=== PATIENT | female | born 1935 | race Caucasian/White ===

== ENCOUNTER 2016-02-25 07:56 | Day surgery (SDC) | payer MEDICARE, OTHER ==
[~2016-02-25] VITALS: Ht 167.6 cm; Wt 77.3 kg
[~2016-02-25 07:56] MED LIST: /ESOM40CA; COLA100C2; DETR2CAP; DIOV160T5; HYDROCODONE; LEVA500T; LORA2TAB; LORAPOW30; MAGNESIUM; MAGNESIUM COMPLEX; MANGANESE; METO10TA2; MULTIVI; NEXI20CA; TYLENOL #3; VICODINES TAB; VIT B; VITA200C; [UNRECOGNIZED DRUG - OTHER]; [UNRECOGNIZED DRUG - OTHER]; [UNRECOGNIZED DRUG - OTHER]; [UNRECOGNIZED DRUG - OTHER]; [UNRECOGNIZED DRUG - OTHER]; acidophilus; evening primrose oil; manganese
[2016-02-25] MEDS ORDERED: ONDANSETRON 4MG/2ML VIAL (J2405) As Ordered ONE (08:47)
[2016-02-25] MEDS ORDERED: MORPHINE 2 MG/ML 1ML SYRINGE As Ordered ONE (08:47)
[2016-02-25] MEDS ORDERED: KETOROLAC 30 MG/ML VIAL (J1885) As Ordered ONE (08:47)
[2016-02-25 08:57] LABS: BASO % 0.1 % (0.0-1.0); EOS # 0.1 K/mm3 (0.0-0.50); EOS % 1.3 % (0.0-3.0); LARGE UNSTAINED CELL # 0.1 K/mm3 (0.0-0.4); LARGE UNSTAINED CELL % 1.2 % (0.0-4.0); LYMPH # 0.8 K/mm3 (1.5-4.5); MEAN CORPUSCULAR HEMOGLOBIN 29.3 pg (27.0-33.0); MEAN CORPUSCULAR HGB CONC 34.8 g/dl (32.0-36.5); MEAN CORPUSCULAR VOLUME 84.3 fl (80.0-96.0); MONO # 0.4 K/mm3 (0.0-0.8); MONO % 5.8 % (0.0-5.0); NEUTROPHILS % 78.6 % (36.0-66.0); PLATELET COUNT, AUTOMATED 177 k/mm3 (150-450); RED CELL DISTRIBUTION WIDTH 13.1 % (11.5-14.5); WHITE BLOOD COUNT 6.3 K/mm3 (4.0-10.0)
[2016-02-25 09:16] LABS: ALBUMIN 3.4 GM/DL (3.2-5.2); ALBUMIN/GLOBULIN RATIO 1.17 (1.00-1.93); ALKALINE PHOSPHATASE 38 U/L (45-117); ALT/SGPT 17 U/L (12-78); AMYLASE 45 U/L (25-115); ANION GAP 11 MEQ/L (8-16); AST/SGOT 19 U/L (15-37); BILIRUBIN,DIRECT 0.2 MG/DL (0.0-0.2); BILIRUBIN,TOTAL 0.7 MG/DL (0.2-1.0); BLOOD UREA NITROGEN 18 MG/DL (7-18); CALCIUM LEVEL 8.9 MG/DL (8.8-10.2); CARBON DIOXIDE LEVEL 23 MEQ/L (21-32); CHLORIDE LEVEL 109 MEQ/L (98-107); CREATININE FOR GFR 0.94 MG/DL (0.55-1.02); GLOMERULAR FILTRATION RATE > 60.0 (>39); GLUCOSE, FASTING 96 MG/DL (83-110); POTASSIUM SERUM 3.2 MEQ/L (3.5-5.1); SODIUM LEVEL 143 MEQ/L (136-145); TOTAL PROTEIN 6.3 GM/DL (6.4-8.2)
--- NOTE | 2016-02-25 09:35 | REP ---
Clinical: Left flank pain. Comparison: 01/20/2011. Findings: Moderate to marked left obstructive uropathy including grade 4 hydronephrosis and perinephric stranding is secondary to a 14 x 21 mm calculus obstructing the ureteropelvic junction. Nonobstructing lower pole left calculi measure up to approximately 9 mm. The right kidney and ureter appear normal and the bladder is unremarkable. Liver, spleen, pancreas, and bilateral adrenal glands are normal for noncontrast examination. The patient is status post cholecystectomy. Evaluation of the enteric system demonstrates a [id number] hiatal hernia. There is no evidence for bowel obstruction or acute inflammatory process. Pelvis demonstrates prior hysterectomy. No pelvic fluid or ascites. No obvious adenopathy. Atherosclerotic changes of the aorta noted without aneurysm. Musculoskeletal structures demonstrate degenerative changes including posterior lumbar fixation and laminectomy. Lung bases demonstrate chronic changes. Impression: 1. Moderate to marked acute left obstructive uropathy with 21 mm calculus at the ureteropelvic junction and multiple nonobstructing left renal calculi measuring up to 9 mm. 2. Moderate hiatal hernia. Signed by Sameer Fountain MD 02/25/2016 09:27 A
[2016-02-25] MEDS ORDERED: cefTRIAXone SOD 1 GM VIAL (J0696) As Ordered ONE (10:42)
[2016-02-25] MEDS ORDERED: IBUPOTC PO (11:05)
[2016-02-25] MEDS ORDERED: OMEP40CA2 PO (11:05)
[2016-02-25] MEDS ORDERED: SERT-138 PO (11:05)
[2016-02-25] MEDS ORDERED: OXYB10TA PO (11:05)
[2016-02-25] MEDS ORDERED: CHLO25TA PO (11:05)
[2016-02-25] MEDS ORDERED: VITMTA PO (11:05)
[2016-02-25] MEDS ORDERED: CALC600T10 PO (11:05)
[2016-02-25] MEDS ORDERED: LOSA25TA8 PO (11:05)
[2016-02-25] MEDS ORDERED: MIRA3350 PO (11:05)
[2016-02-25] MEDS ORDERED: D 50CAP PO (11:05)
[2016-02-25] MEDS ORDERED: SIMV20TA2 PO (11:05)
[2016-02-25] MEDS ORDERED: NS 1,000 ML IV SCH (11:13)
[2016-02-25] MEDS ORDERED: PERCOCET 5MG/325MG TAB PO PRN ×3 (11:15→18:00)
[2016-02-25] MEDS ORDERED: ONDANSETRON 4MG/2ML VIAL (J2405) IV PRN ×2 (11:15→18:00)
[2016-02-25] MEDS ORDERED: ACETAMINOPHEN TAB 650MG DOSE (2X325MG) PO PRN (11:15)
[2016-02-25] MEDS ORDERED: MORPHINE 2 MG/ML 1ML SYRINGE IV PRN (11:15)
[2016-02-25 12:35] VITALS: BP 153/70
--- NOTE | 2016-02-25 12:43 | REP ---
Clinical: Preoperative assessment . Comparison: 02/21/2015 . Technique: PA and lateral. Findings: The mediastinum and cardiac silhouette are normal. The lung cobos are clear and without acute consolidation, effusion, or pneumothorax. The skeletal structures are intact and normal. Old healed left clavicle fracture. Impression: 1. No acute cardiopulmonary process. Signed by Sameer Fountain MD 02/25/2016 12:36 P
[2016-02-25 14:00] VITALS: BP 156/72
[2016-02-25] MEDS ORDERED: ACETAMINOPHEN TAB 650MG DOSE (2X325MG) As Ordered ONE (14:19)
--- NOTE | 2016-02-25 15:03 | EDDOCDS ---
Physician Documentation [facility] Name: Clarissa Witt Age: 80 yrs Sex: Female : 1935 Arrival Date: 02/25/2016 Time: 07:56 Bed 18 Private MD: Richard Mclain P. Disposition: 02/25/16 10:42 Hospitalization ordered by Casimiro Stubbs for Inpatient Admission. Preliminary diagnosis are Unspecified renal colic - with moderate hydronephrosis, Cystitis, unspecified with hematuria. - Bed requested for 4 [place]. - Status is Inpatient Admission. ead - Condition is Stable. - Problem is new. - Symptoms are unchanged. Historical: - Allergies: Latex; Streptomycin Sulfate; - Home Meds: 1. Sertraline 25 mg daily 2. omeprazole 40 mg Oral cpDR 1 cap once daily 3. oxybutynin chloride 10 mg Oral tr24 1 tab once daily 4. losartan 25 mg oral tab 1 tab once daily 5. simvastatin 20 mg Oral tab 1 tab once daily 6. Vitamin D3 5,000 unit oral tab daily 7. multivitamin Oral tab daily 8. calcium Unknown 9. Chlorthalidone Oral - PMHx: Colitis; High Cholesterol; Hypertension; Depression; Kidney stones; - PSHx: back surgery 08/2008; - Social history: Smoking status: Patient states was never smoker of tobacco. No barriers to communication noted, The patient speaks fluent Nepali, Speaks appropriately for age. - Family history: Not pertinent. - : The pt / caregiver states he / she is not on anticoagulants. Home medication list is obtained from the patient. - Exposure Risk Screening:: None identified. Vital Signs: 02/24 08:11 BP 176 / 92; Pulse 94; Resp 16; Temp 98.2(TE); Pulse Ox 97% on R/A; Weight 77.11 kg / mlb1 170 lbs (R); Height 5 ft. 11 in. (180.34 cm); Pain 8/10; 08:42 BP 159 / 76 (auto/); ead 08:43 Pulse Ox 98% ; ead 09:12 BP 156 / 76 (auto/); ead 09:12 Pulse 70; Resp 16; Pulse Ox 97% ; ead 09:20 Pain 2/10; ead 09:40 Pulse 70; Resp 16; Pulse Ox 95% ; ead 09:42 BP 170 / 75 (auto/); kc3 10:11 Pulse Ox 96% ; ead 10:12 BP 180 / 79 (auto/); kc3 10:35 Pulse 73; Resp 18; Pulse Ox 97% ; ead 10:42 BP 186 / 76 (auto/); kc3 11:10 Pulse Ox 97% ; ead 11:12 BP 162 / 74 (auto/); ead 11:12 Pulse Ox 97% ; ead 12:12 BP 151 / 66 (auto/); ead 12:12 Pulse Ox 95% ; ead 12:33 Pulse Ox 95% ; ead 12:34 BP 153 / 70 (auto/); ead 12:42 BP 151 / 65 (auto/); ead 12:47 Pulse 74; Resp 16; Pulse Ox 97% ; ead 14:37 BP 142 / 65; Pulse 73; Resp 18; Temp 98.7(O); Pulse Ox 95% on R/A; mcp 08:11 Body Mass Index 23.71 (77.11 kg, 180.34 cm) mlb1 MDM: 08:32 IV Saline Lock ordered. ml 08:32 NS 0.9% 1000 ml IV at 100 mL/hr continuous ordered. ml 08:32 Ondansetron 4 mg IVP once ordered. ml 08:32 morphine 2 mg IVP every 5 minutes; Document pain score/vitals after each dose (Hold if ml SBP < 90mmHg) x3 ordered. 08:32 ketorolac 30 mg IVP once ordered. ml 08:33 CBC with Diff Ordered. EDMS 08:33 MED Profile Ordered. EDMS 08:33 Liver Profile Ordered. EDMS 08:33 Lipase Ordered. EDMS 08:33 Amylase Ordered. EDMS 08:33 UA Ordered. EDMS 08:33 Urine Culture Ordered. EDMS 08:34 CT ABD & PELVIS: No Contrast Ordered. EDMS 08:51 Financial registration complete. pm4 08:58 [facility] Payment Agreement was scanned into Printi and attached to record. pm4 09:17 CBC with Diff Reviewed. ml 09:17 MED Profile Reviewed. ml 09:17 Liver Profile Reviewed. ml 09:17 Lipase Reviewed. ml 09:17 Amylase Reviewed. ml 09:18 Misc. Nursing Order ordered. ml 10:10 BED REQUEST+ADM ordered. EDMS 10:19 UA Reviewed. ml 10:19 CT ABD & PELVIS: No Contrast Reviewed. ml 10:20 cefTRIAXone 1 grams IVPB once over 30 mins; dilute in 50mL of NS or D5W ordered. ml 11:30 Admission / Observation Status ordered. EDMS 11:30 NPO DIET ordered. EDMS 11:39 ECG WITH READING ER PHYS+CARDIAG ordered. EDMS 11:39 Chest, 2 View (pa\E\lat) Ordered. EDMS 12:44 ED course: dr stubbs requested cxr 2 view (nad) and ecg for pre op. ecg 73 nsr lad ml ivcd nonspecific st t wave changes . mlg. Administered Medications: 08:56 Drug: Ondansetron 4 mg [ondansetron HCl 2 mg/mL intravenous solution (2 mL)] Route: ead IVP; Site: right antecubital; 09:20 Follow up: Response: Nausea is resolved; No Adverse Reaction ead 08:58 Drug: ketorolac 30 mg [ketorolac 30 mg/mL (1 mL) injection solution (1 mL)] Route: IVP; ead Site: right antecubital; 09:20 Follow up: Pain 2/10 Adult; Response: No Adverse Reaction; Pain is decreased ead 09:00 Drug: morphine 2 mg [morphine 2 mg/mL intravenous cartridge (1 mL)] Route: IVP; Site: ead right antecubital; 09:38 Follow up: Response: Confirmed pt not driving.; No Adverse Reaction; Pain is decreased ead 09:30 Drug: NS 0.9% 1000 ml [sodium chloride 0.9 % intravenous solution] Route: IV; Rate: 100 ead mL/hr; Site: right antecubital; 10:55 Drug: cefTRIAXone 1 grams [ceftriaxone 1 gram solution for injection] Route: IVPB; kc3 Infused Over: 30 mins; Site: right antecubital; 11:25 Follow up: Response: No Adverse Reaction; IV Status: Completed infusion; IV Intake: 50mlead Signatures: Dispatcher MedHost EDMS Mireya Briones MD MD ml Sulaiman England RN RN mlb1 Yessenia KasperRN RN ead Dede Miller RN RN sls2 Francisco Williamson, Reg Reg pm4 Alda Herrera RN kc3 The chart was reviewed and I authenticate all verbal orders and agree with the evaluation and treatment provided.Attachments: 08:58 [facility] Payment Agreement pm4 MTDD
--- NOTE | 2016-02-25 15:03 | EDDOCDS ---
Nurse's Notes [facility] Name: Clarissa Witt Age: 80 yrs Sex: Female : 1935 Arrival Date: 02/25/2016 Time: 07:56 Bed 18 Private MD: Richard Mclain P. Diagnosis: Unspecified renal colic-with moderate hydronephrosis;Cystitis, unspecified with hematuria Presentation: 02/24 08:01 Presenting complaint: Patient states: Left flank pain began on 02/19/16 worse since last mlb1 night no BM for the past three days. Acute neurological deficits are not present. Mechanism of Injury: No Mechanism of Injury. Adult Sepsis Screening: The patient does not have new or worsening altered mentation. Patient's respiratory rate is less than 22. Systolic blood pressure is greater than 100. Patient has a qSOFA score of 0- Negative Sepsis Screen. Suicide/Homicide risk assessment- the patient denies having any suicidal and/or homicidal ideations and does not present with any other emotional, behavioral or mental health complaints. Status: Patient is not a clinical services director or dependent. Transition of care: patient was not received from another setting of care. 08:01 Acuity: [place] Level 3 mlb1 08:01 Method Of Arrival: Walkin/Carried/Asstd mlb1 Triage Assessment: 08:10 General: Appears distressed, Behavior is anxious, appropriate for age. Pain: Location: mlb1 left flank Pain currently is 8 out of 10 on a pain scale. GI: Reports constipation, nausea. Musculoskeletal: No deficits noted. Historical: - Allergies: Latex; Streptomycin Sulfate; - Home Meds: 1. Sertraline 25 mg daily 2. omeprazole 40 mg Oral cpDR 1 cap once daily 3. oxybutynin chloride 10 mg Oral tr24 1 tab once daily 4. losartan 25 mg oral tab 1 tab once daily 5. simvastatin 20 mg Oral tab 1 tab once daily 6. Vitamin D3 5,000 unit oral tab daily 7. multivitamin Oral tab daily 8. calcium Unknown 9. Chlorthalidone Oral - PMHx: Colitis; High Cholesterol; Hypertension; Depression; Kidney stones; - PSHx: back surgery 08/2008; - Social history: Smoking status: Patient states was never smoker of tobacco. No barriers to communication noted, The patient speaks fluent Swiss, Speaks appropriately for age. - Family history: Not pertinent. - : The pt / caregiver states he / she is not on anticoagulants. Home medication list is obtained from the patient. - Exposure Risk Screening:: None identified. Screenin:13 Screening information is obtained from the patient. Fall risk: No risks identified. ead Assistance ADL's: requires no assistance with activities of daily living. Abuse/DV Screen: The patient / caregiver reports he/she is: not in a situation that causes fear, pain or injury. Nutritional screening: No deficits noted. Advance Directives: Currently, there is a health care proxy, Jolynn Witt (daughter in law). There is no active DNR order. There is no living will. There is an active Power of Injection Molding Machine Tender, Jolynn Witt (daughter in law). information regarding advance directives can be obtained from Jolynn Witt home: [phone]. cell: [phone]. home support is adequate. Assessment: 09:03 General: Appears in no apparent distress, uncomfortable, well nourished, well groomed, ead Behavior is appropriate for age, cooperative, pleasant. Pain: Location: left flank Pain currently is 10 out of 10 on a pain scale. Neurological: No deficits noted. GI: Abdomen is non- distended Reports lower abdominal pain, nausea. Derm: Skin is pink, warm & dry. Musculoskeletal: Reports pain in left flank. 09:38 Reassessment: Patient appears in no apparent distress at this time. Patient states ead feeling better. Patient states symptoms have improved. 10:55 General: Appears in no apparent distress, comfortable, Behavior is appropriate for age, kc3 cooperative. Neurological: Level of Consciousness is awake, alert, obeys commands, Oriented to person, place, time. Respiratory: Respiratory effort is even, unlabored. Derm: Skin is pink, warm & dry. 11:34 General: This nurse received call from Dr. Monk. Asked to verify pt's allergy to ead codeine. Pt states she is not allergic to codeine. Dr. Monk made aware. Dr. Monk also requesting two view chest x-ray and EKG done in ER prior to going to OR. Dr. Monk also states pt to go to OR at approx 1600 for stent placement for kidney stone. . 12:30 General: Appears in no apparent distress, comfortable. Pain: Location: left flank Pain ead currently is 1 out of 10 on a pain scale. Neurological: No deficits noted. Respiratory: Airway is patent Respiratory effort is even, unlabored. GI: Denies nausea, vomiting. Derm: Skin is pink, warm & dry. 13:30 General: Appears in no apparent distress, comfortable, Behavior is appropriate for age, ead cooperative. General: pt updated of bed status to rom 4201 and plan for stent placement with Dr. Monk later today. Pt's family maintains at bedside. pt denies needs. . Pain: Denies pain. Respiratory: Airway is patent Respiratory effort is even, unlabored. Derm: Skin is pink, warm & dry. Vital Signs: 08:11 BP 176 / 92; Pulse 94; Resp 16; Temp 98.2(TE); Pulse Ox 97% on R/A; Weight 77.11 kg mlb1 (R); Height 5 ft. 11 in. (180.34 cm); Pain 8/10; 08:42 BP 159 / 76 (auto/); ead 08:43 Pulse Ox 98% ; ead 09:12 BP 156 / 76 (auto/); ead 09:12 Pulse 70; Resp 16; Pulse Ox 97% ; ead 09:20 Pain 2/10; ead 09:40 Pulse 70; Resp 16; Pulse Ox 95% ; ead 09:42 BP 170 / 75 (auto/); kc3 10:11 Pulse Ox 96% ; ead 10:12 BP 180 / 79 (auto/); kc3 10:35 Pulse 73; Resp 18; Pulse Ox 97% ; ead 10:42 BP 186 / 76 (auto/); kc3 11:10 Pulse Ox 97% ; ead 11:12 BP 162 / 74 (auto/); ead 11:12 Pulse Ox 97% ; ead 12:12 BP 151 / 66 (auto/); ead 12:12 Pulse Ox 95% ; ead 12:33 Pulse Ox 95% ; ead 12:34 BP 153 / 70 (auto/); ead 12:42 BP 151 / 65 (auto/); ead 12:47 Pulse 74; Resp 16; Pulse Ox 97% ; ead 14:37 BP 142 / 65; Pulse 73; Resp 18; Temp 98.7(O); Pulse Ox 95% on R/A; mcp 08:11 Body Mass Index 23.71 (77.11 kg, 180.34 cm) mlb1 Vitals: 08:11 Log In Time: February 25, 2016 at 07:56. mlb1 ED Course: 07:58 Patient visited by Alex Arciniega. mm15 07:58 Richard Mclain is Private Physician. mm15 07:58 Patient moved to Waiting mm15 08:01 Patient visited by Sulaiman England, RN. mlb1 08:04 Triage Initiated mlb1 08:12 Patient visited by Sulaiman England, RN. mlb1 08:15 Yessenia Kasper,RN is Primary Nurse. mlb1 08:15 Patient moved to 18 mlb1 08:23 Mireya Briones MD is Attending Physician. ml 08:23 Patient visited by Mireya Briones MD. ml 08:30 Patient has correct armband on for positive identification. Placed in gown. Bed in low ead position. Call light in reach. Side rails up X 1. Adult w/ patient. Pulse ox on. NIBP on. 08:44 Patient visited by Yessenia Kasper RN. ead 08:45 Lipase Sent. ead 08:45 Amylase Sent. ead 08:45 Liver Profile Sent. ead 08:45 MED Profile Sent. ead 08:45 CBC with Diff Sent. ead 08:45 Inserted peripheral IV: 20gauge IV in right antecubital area and blood collected. ead Patient tolerated the procedure well. 08:58 [facility] Payment Agreement was scanned into LABOMAR and attached to record. pm4 09:39 Patient visited by Yessenia Kasper RN. ead 09:40 CT ABD & PELVIS: No Contrast Returned. EDMS 10:03 Patient visited by Yessenia Kasper RN. ead 10:03 UA Sent. ead 10:03 Urine Culture Sent. ead 10:35 Patient visited by Enrike Koroma PCA. jlf 10:42 Casimiro Jiang is Hospitalizing Provider. ml 10:57 Patient visited by Alda Herrera RN. kc3 12:42 Patient visited by Enrike Koroma PCA. jlf 12:42 EKG done. (by ED staff). Reviewed by Mireya Briones MD. jlf 13:13 The patient / caregiver is instructed regarding the plan of care and ED course. ead 13:16 No procedures done that require assistance. ead Administered Medications: 08:56 Drug: Ondansetron 4 mg [ondansetron HCl 2 mg/mL intravenous solution (2 mL)] Route: ead IVP; Site: right antecubital; 09:20 Follow up: Response: Nausea is resolved; No Adverse Reaction ead 08:58 Drug: ketorolac 30 mg [ketorolac 30 mg/mL (1 mL) injection solution (1 mL)] Route: IVP; ead Site: right antecubital; 09:20 Follow up: Pain 2/10 Adult; Response: No Adverse Reaction; Pain is decreased ead 09:00 Drug: morphine 2 mg [morphine 2 mg/mL intravenous cartridge (1 mL)] Route: IVP; Site: ead right antecubital; 09:38 Follow up: Response: Confirmed pt not driving.; No Adverse Reaction; Pain is decreased ead 09:30 Drug: NS 0.9% 1000 ml [sodium chloride 0.9 % intravenous solution] Route: IV; Rate: 100 ead mL/hr; Site: right antecubital; 10:55 Drug: cefTRIAXone 1 grams [ceftriaxone 1 gram solution for injection] Route: IVPB; kc3 Infused Over: 30 mins; Site: right antecubital; 11:25 Follow up: Response: No Adverse Reaction; IV Status: Completed infusion; IV Intake: 50mlead Intake: 11:25 IV: 50.00ml; Total: 50.00ml. ead Order Results: Lab Order: CBC with Diff; SPEC'M 02/25/16 08:42 Test: WHITE BLOOD COUNT; Value: 6.3; Range: 4.0-10.0; Units: K/mm3; Status: F Test: RED BLOOD COUNT; Value: 4.11; Range: 4.00-5.40; Units: M/mm3; Status: F Test: HEMOGLOBIN; Value: 12.1; Range: 12.0-16.0; Units: g/dl; Status: F Test: HEMATOCRIT; Value: 34.6; Range: 36.0-47.0; Abnormal: Below low normal; Units: %; Status: F Test: MEAN CORPUSCULAR VOLUME; Value: 84.3; Range: 80.0-96.0; Units: fl; Status: F Test: MEAN CORPUSCULAR HEMOGLOBIN; Value: 29.3; Range: 27.0-33.0; Units: pg; Status: F Test: MEAN CORPUSCULAR HGB CONC; Value: 34.8; Range: 32.0-36.5; Units: g/dl; Status: F Test: RED CELL DISTRIBUTION WIDTH; Value: 13.1; Range: 11.5-14.5; Units: %; Status: F Test: PLATELET COUNT, AUTOMATED; Value: 177; Range: 150-450; Units: k/mm3; Status: F Test: NEUTROPHILS %; Value: 78.6; Range: 36.0-66.0; Abnormal: Above high normal; Units: %; Status: F Test: LYMPH %; Value: 13.0; Range: 24.0-44.0; Abnormal: Below low normal; Units: %; Status: F Test: MONO %; Value: 5.8; Range: 0.0-5.0; Abnormal: Above high normal; Units: %; Status: F Test: EOS %; Value: 1.3; Range: 0.0-3.0; Units: %; Status: F Test: BASO %; Value: 0.1; Range: 0.0-1.0; Units: %; Status: F Test: LARGE UNSTAINED CELL %; Value: 1.2; Range: 0.0-4.0; Units: %; Status: F Test: NEUTROPHILS #; Value: 5.0; Range: 1.8-7.7; Units: K/mm3; Status: F Test: LYMPH #; Value: 0.8; Range: 1.5-4.5; Abnormal: Below low normal; Units: K/mm3; Status: F Test: MONO #; Value: 0.4; Range: 0.0-0.8; Units: K/mm3; Status: F Test: EOS #; Value: 0.1; Range: 0.0-0.50; Units: K/mm3; Status: F Test: BASO #; Value: 0.0; Range: 0.0-0.2; Units: K/mm3; Status: F Test: LARGE UNSTAINED CELL #; Value: 0.1; Range: 0.0-0.4; Units: K/mm3; Status: F Lab Order: MED Profile; SPEC02/25/16 08:42 Test: GLUCOSE, FASTING; Value: 96; Range: 83-110; Units: MG/DL; Status: F Test: BLOOD UREA NITROGEN; Value: 18; Range: 7-18; Units: MG/DL; Status: F Test: CREATININE FOR GFR; Value: 0.94; Range: 0.55-1.02; Units: MG/DL; Status: F Test: GLOMERULAR FILTRATION RATE; Value: > 60.0; Range: >39; Status: F Test: SODIUM LEVEL; Value: 143; Range: 136-145; Units: MEQ/L; Status: F Test: POTASSIUM SERUM; Value: 3.2; Range: 3.5-5.1; Abnormal: Below low normal; Units: MEQ/L; Status: F Test: CHLORIDE LEVEL; Value: 109; Range: 98-107; Abnormal: Above high normal; Units: MEQ/L; Status: F Test: CARBON DIOXIDE LEVEL; Value: 23; Range: 21-32; Units: MEQ/L; Status: F Test: ANION GAP; Value: 11; Range: 8-16; Units: MEQ/L; Status: F Test: CALCIUM LEVEL; Value: 8.9; Range: 8.8-10.2; Units: MG/DL; Status: F Test Note: ; Units are mL/min/1.73 m2 Chronic Kidney Disease Staging per NKF: Stage I & II GFR >=60 Normal to Mildly Decreased Stage III GFR 30-59 Moderately Decreased Stage IV GFR 15-29 Severely Decreased Stage V GFR <15 Very Little GFR Left ESRD GFR <15 on GLUING MACHINE OPERATOR AUTOMATIC Lab Order: Liver Profile; SPEC'M 02/25/16 08:42 Test: AST/SGOT; Value: 19; Range: 15-37; Units: U/L; Status: F Test: ALT/SGPT; Value: 17; Range: 12-78; Units: U/L; Status: F Test: ALKALINE PHOSPHATASE; Value: 38; Range: 45-117; Abnormal: Below low normal; Units: U/L; Status: F Test: BILIRUBIN,TOTAL; Value: 0.7; Range: 0.2-1.0; Units: MG/DL; Status: F Test: BILIRUBIN,DIRECT; Value: 0.2; Range: 0.0-0.2; Units: MG/DL; Status: F Test: TOTAL PROTEIN; Value: 6.3; Range: 6.4-8.2; Abnormal: Below low normal; Units: GM/DL; Status: F Test: ALBUMIN; Value: 3.4; Range: 3.2-5.2; Units: GM/DL; Status: F Test: ALBUMIN/GLOBULIN RATIO; Value: 1.17; Range: 1.00-1.93; Status: F Lab Order: Lipase; [facility] 02/25/16 08:42 Test: LIPASE; Value: 212; Range: 73-393; Units: U/L; Status: F Lab Order: Amylase; [facility] 02/25/16 08:42 Test: AMYLASE; Value: 45; Range: 25-115; Units: U/L; Status: F Lab Order: UA; [facility] 02/25/16 10:01 Test: APPEARANCE, URINE; Value: CLEAR; Range: CLEAR; Status: F Test: COLOR, URINE; Value: STRAW; Range: YELLOW; Status: F Test: PH,URINE; Value: 7.0; Range: 5.0-9.0; Units: UNITS; Status: F Test: SPECIFIC GRAVITY URINE AUTO; Value: 1.005; Range: 1.002-1.035; Status: F Test: PROTEIN, URINE AUTO; Value: NEGATIVE; Range: NEGATIVE; Units: mg/dL; Status: F Test: GLUCOSE, URINE (UA) AUTO; Value: NEGATIVE; Range: NEGATIVE; Units: mg/dL; Status: F Test: KETONE, URINE AUTO; Value: TRACE; Range: NEGATIVE; Abnormal: Above high normal; Units: mg/dL; Status: F Test: UROBILINOGEN, URINE AUTO; Value: 0.2; Range: 0.0-2.0; Units: mg/dL; Status: F Test: BILIRUBIN, URINE AUTO; Value: NEGATIVE; Range: NEGATIVE; Status: F Test: NITRITE, URINE AUTO; Value: NEGATIVE; Range: NEGATIVE; Status: F Test: LEUKOCYTE ESTERASE, URINE AUTO; Value: 1+; Range: NEGATIVE; Abnormal: Above high normal; Status: F Test: BLOOD, URINE BLOOD; Value: 2+; Range: NEGATIVE; Abnormal: Above high normal; Status: F Test: WBC, URINE AUTO; Value: 35; Range: 0-3; Abnormal: Above high normal; Units: /HPF; Status: F Test: RBC, URINE AUTO; Value: 21; Range: 0-3; Abnormal: Above high normal; Units: /HPF; Status: F Test: BACTERIA, URINE AUTO; Value: NEGATIVE; Range: NEGATIVE; Status: F Test: SQUAMOUS EPITHELIAL CELL UR AU; Value: 0; Range: 0-6; Units: /HPF; Status: F Test: MUCUS, URINE; Value: SMALL; Range: NEGATIVE; Status: F Test: HYALINE CAST, URINE AUTO; Value: 0; Range: 0-1; Units: /LPF; Status: F Radiology Order: CT ABD & PELVIS: No Contrast Test: CT ABD & PELVIS: No Contrast REASON FOR EXAMINATION: LEFT FLANK PAIN, HX STONE AND COLITIS; Clinical: Left flank pain.; ; Comparison: 01/20/2011.; ; Findings:; Moderate to marked left obstructive uropathy including grade 4 hydronephrosis and; perinephric stranding is secondary to a 14 x 21 mm calculus obstructing the; ureteropelvic junction. Nonobstructing lower pole left calculi measure up to; approximately 9 mm. The right kidney and ureter appear normal and the bladder is; unremarkable.; ; Liver, spleen, pancreas, and bilateral adrenal glands are normal for noncontrast; examination. The patient is status post cholecystectomy. Evaluation of the; enteric system demonstrates a aakbthlw-nq-jkljz hiatal hernia. There is no; evidence for bowel obstruction or acute inflammatory process. Pelvis; demonstrates prior hysterectomy. No pelvic fluid or ascites. No obvious; adenopathy. Atherosclerotic changes of the aorta noted without aneurysm.; Musculoskeletal structures demonstrate degenerative changes including posterior; lumbar fixation and laminectomy. Lung bases demonstrate chronic changes.; ; Impression:; 1. Moderate to marked acute left obstructive uropathy with 21 mm calculus at the; ureteropelvic junction and multiple nonobstructing left renal calculi measuring; up to 9 mm.; 2. Moderate hiatal hernia.; ; ; Signed by; Sameer Fountain MD 02/25/2016 09:27 A; Outcome: 10:42 Decision to Hospitalize by Provider. ml 13:16 Discharge Assessment: patient administered narcotics - yes. Patient was admitted to the [facility] hospital or transferred to another facility. CT Study completed. 15:02 The following High Risk Discharge criteria are identified: None. Admitted to Med/Surg ead accompanied by tech, family with patient, via stretcher, with chart. Condition: stable. Property :Personal belongings accompany Pt. 15:02 Patient left the ED. [facility] Signatures: Dispatcher Med[employer] EDTN Mireya Briones MD MD ml Peters, Mary, RN RN Sulaiman Thurston RN RN mlb1 Alex Arciniega mm15 Enrike Koroma, DIE REPAIRER STAMPING DIE REPAIRER STAMPING tammyf Yessenia KasperRN RN Alda Alberto RN RN kc3 Francisco Williamson, Reg Reg pm4 Corrections: (The following items were deleted from the chart) 11:36 11:34 General: This nurse received call from Dr. Monk. Asked to verify pt's ead allergy to codeine. Pt states she is not allergic to codeine. Dr. Monk made aware. Dr. Monk also requesting two view chest x-ray and EKG done in ER prior to going to OR. . ead MTDD
[2016-02-25] MEDS ORDERED: LIDOCAINE 2% INJ 100 MG/5 ML SDV (FOR ANES.) As Ordered ONE (16:04)
[2016-02-25] MEDS ORDERED: PROPOFOL 200 MG/20 ML VIAL As Ordered ONE (16:04)
[2016-02-25] MEDS ORDERED: CONRAY-60 60% 50ML VIAL (Q9961) As Ordered ONE (16:24)
[2016-02-25] MEDS ORDERED: MIDAZOLAM INJ 2 MG/2 ML VIAL (J2250) As Ordered ONE (16:46)
[2016-02-25] MEDS ORDERED: fentaNYL 100 MCG/2 ML INJECTION (J3010) As Ordered ONE (16:46)
--- NOTE | 2016-02-25 16:49 | SMCUROLCON ---
Urology Consultation General Date of Consultation 02/25/16 Reason For Consultation Kidney Stone On Left Side History of Present Illness This is a 80 y/o F w/ a PMH significant for rheumatoid arthritis and kidney stones, who presented to the ED today w/ severe left flank pain. A CT A/P w/o contrast was done and notable for an obstructing 2cm left renal pelvic stone. Her UA had 35 WBCs. She denies dysuria or fevers. She denies nausea or vomiting. She had kidney stone surgery several years ago but does not recall what she had. Past Medical History Medical History see HPI Surgical Hstory hysterectomy, lumpectomy Medications Current Medications Current Medications Acetaminophen (Tylenol) 650 mg Q4HP PRN PO MILD PAIN or TEMP > 101 Last administered on 02/25/16t 14:24; Start 02/25/16 at 11:15; Stop 03/26/16 at 11:14 Acetaminophen (Tylenol) 650 mg STK-MED ONCE As Ordered ; Start 02/25/16 at 14:19 ; Stop 02/25/16 at 14:20; Status DC Ceftriaxone Sodium (Rocephin) 1 gm STK-MED ONCE As Ordered ; Start 02/25/16 at 10:42; Stop 02/25/16 at 10:43; Status DC Home Med ASDIRECTED XX ; Start 02/25/16 at 11:15; Stop 02/25/16 at 11:15; Status DC Iothalamate Meglumine (Conray-60) 50 ml STK-MED ONCE As Ordered ; Start at 16:24; Stop 02/25/16 at 16:25; Status DC Ketorolac Tromethamine (ToRADol) 30 mg STK-MED ONCE As Ordered ; Start 02/25/16 at 08:47; Stop 02/25/16 at 08:48; Status DC Lidocaine HCl (Lidocaine 2% Sdv) 100 mg STK-MED ONCE As Ordered ; Start at 16:04; Stop 02/25/16 at 16:05; Status DC Morphine Sulfate (Morphine Sulfate Inj) 2 mg Q2HP PRN IV SEVERE PAIN (PS 8-10) ; Start 02/25/16 at 11:15; Stop 03/03/16 at 11:14 Morphine Sulfate (Morphine Sulfate Inj) 2 mg STK-MED ONCE As Ordered ; Start 12/31 at 08:47; Stop 02/25/16 at 08:48; Status DC Ondansetron HCl (Zofran) 4 mg Q6HP PRN IV NAUSEA OR VOMITING; Start 02/25/16 at 11:15; Stop 03/26/16 at 11:14 Ondansetron HCl (Zofran) 4 mg STK-MED ONCE As Ordered ; Start 02/25/16 at 08:47 ; Stop 02/25/16 at 08:48; Status DC Oxycodone/ Acetaminophen (Percocet 5mg/ 325mg Tablet) 1 tab Q4HP PRN PO MODERATE PAIN (PS 5-7); Start 02/25/16 at 11:15; Stop 03/03/16 at 11:14 Propofol (Diprivan) 200 mg STK-MED ONCE As Ordered ; Start 02/25/16 at 16:04; Stop 02/25/16 at 16:05; Status DC Sodium Chloride (Nacl 0.9%) 1,000 ml @ 50 mls/hr Q20H IV ; Start 02/25/16 at 11 :13; Stop 03/26/16 at 11:12 Allergies Allergies: Coded Allergies: Acetylcysteine (Verified Allergy, Intermediate, RASH (? WETHER THIS WAS THE REASON FOR THE RASH), 05/22/12) Codeine (Verified Allergy, Intermediate, ITCHY, 05/22/12) Kiwi (Verified Allergy, Unknown, 11/08/02) Latex (Unverified Allergy, Unknown, 02/25/16) TAPE (Verified Allergy, Unknown, 10/02/03) Streptomycin (Verified Adverse Reaction, Intermediate, NUMBNESS, 05/22/12) Review of Systems General: Denies: Chills Constitutional: Denies: Fever Pulmonary: Denies: Cough, Dyspnea Cardiovascular: Denies Chest Pain Gastrointestinal: Denies: Abdominal Pain Genitourinary: Reports: Incontinence, Denies: Dysuria Musculoskeletal: Reports: Back Pain Psych: Reports: Mood Normal Physical Examination General Exam: : Alert: Cooperative Chest Exam: : Clear to auscultation Heart Exam: : Rate Normal: Regular Rhythm Abdomen Exam: : SoftNo: Tenderness Neuro Exam: : Normal Speech Psych Exam: : Mental status NL: Mood NL Vital Signs/I&O Vital Signs Date Time Temp Pulse Resp B/P Pulse Ox O2 Delivery O2 Flow Rate FiO2 02/25/16 14:00 96.0 73 16 156/72 97 Room Air Laboratory Data 24H Labs Laboratory Tests 2 02/25/16 08:42: Aspartate Amino Transf (AST/SGOT) 19, Alanine Aminotransferase (ALT/SGPT) 17, Alkaline Phosphatase 38L, Total Bilirubin 0.7, Direct Bilirubin 0.2, Albumin 3.4 , Albumin/Globulin Ratio 1.17, Amylase Level 45, Anion Gap 11, White Blood Count 6.3, Red Blood Count 4.11, Hemoglobin 12.1, Hematocrit 34.6L, Mean Corpuscular Volume 84.3, Mean Corpuscular Hemoglobin 29.3, Mean Corpuscular Hemoglobin Concent 34.8, Red Cell Distribution Width 13.1, Platelet Count 177, Neutrophils (%) (Auto) 78.6H, Lymphocytes (%) (Auto) 13.0L, Monocytes (%) (Auto ) 5.8H, Eosinophils (%) (Auto) 1.3, Basophils (%) (Auto) 0.1, Neutrophils # ( Auto) 5.0, Lymphocytes # (Auto) 0.8L, Monocytes # (Auto) 0.4, Eosinophils # ( Auto) 0.1, Basophils # (Auto) 0.0, Calcium Level 8.9, Glomerular Filtration Rate > 60.0, Large Unclassified Cells # 0.1, Large Unclassified Cells % 1.2, Lipase 212, Total Protein 6.3L 02/25/16 10:01: Urine Amorphous Sediment , Urine Appearance CLEAR, Urine Color STRAW, Urine pH 7.0, Urine Specific [place] 1.005, Urine Protein NEGATIVE, Urine Glucose (UA) NEGATIVE, Urine Ketones TRACEH, Urine Urobilinogen 0.2, Urine Bilirubin NEGATIVE , Urine Leukocyte Esterase 1+H, Urine Bacteria (Auto) NEGATIVE, Urine Blood 2+H , Urine Calcium Carbonate Cryst(Auto) , Urine Calcium Oxalate Cryst (Auto) , Urine Calcium Phosphate [place] (Auto) , Urine Cellular Casts , Urine Cystine Crystals , Urine Granular Casts (Auto) , Urine Hyaline Casts (Auto) 0, Urine Leucine Crystals , Urine Mucus (Auto) SMALL, Urine Nitrite NEGATIVE, Urine Oval Fat Bodies (Auto) , Urine RBC (Auto) 21H, Urine Renal Epithelial Cells , Urine Sperm (Auto) , Urine Squamous Epithelial Cells 0, Urine Transitional Epithelial Cells , Urine Trichomonas (Auto) , Urine Triple Phosphate Cryst (Auto) , Urine Tyrosine Crystals , Urine Uric Acid Crystals (Auto) , Urine WBC (Auto) 35H, Urine Waxy Casts (Auto) , Urine Yeast-Like Cells (Auto) CBC/BMP Laboratory Tests 02/25/16 08:42 Red Blood Count 4.11, Mean Corpuscular Volume 84.3, Mean Corpuscular Hemoglobin 29.3, Mean Corpuscular Hemoglobin Concent 34.8, Red Cell Distribution Width 13.1 , Neutrophils (%) (Auto) 78.6 H, Lymphocytes (%) (Auto) 13.0 L, Monocytes (%) ( Auto) 5.8 H, Eosinophils (%) (Auto) 1.3, Basophils (%) (Auto) 0.1, Neutrophils # (Auto) 5.0, Lymphocytes # (Auto) 0.8 L, Monocytes # (Auto) 0.4, Eosinophils # (Auto) 0.1, Basophils # (Auto) 0.0 Microbiology Microbiology 02/25/16 Urine Culture, Received Pending Assessment This is a 80 y/o F w/ a 2cm obstructing left ureteropelvic junction stone and a possible UTI. I recommended cystoscopy w/ left ureteral stent placement. After a discussion of the risks and benefits of the surgery informed consent was signed. Plan - OR for cystoscopy w/ left ureteral stent placement - will keep patient on PO antibiotics until urine culture is back - NPO for now - ok for discharge home after surgery if patient's pain is improved and she is afebrile SHALONDA MILLAN MD Feb 25, 2016 16:49
[2016-02-25] MEDS ORDERED: fentaNYL 100 MCG/2 ML INJECTION (J3010) IV PRN (18:00)
[2016-02-25] MEDS ORDERED: LR 1,000 ML IV SCH (18:00)
--- NOTE | 2016-02-25 18:11 | ECGEPIP ---
Stationary ECG Study [facility] - ED Test Date: 2016-02-25 Pat Name: MIGUELINA LANGSTON Department: Room: - Gender: F Manager Corporate: [employer] : 1935 Requested By: Mireya Briones Order Number: [id number] Reading MD: Linda Brock Measurements Intervals [place] Rate: 73 P: 38 SD: 157 QRS: -19 QRSD: 104 T: 52 QT: 426 QTc: 471 Interpretive Statements SINUS RHYTHM NSTTW ABNORMALITY ?PRIOR INFERIOR TN SIMILAR 05/08/13 Electronically Signed On 02-25-2016 18:11:00 EST by Linda Brock
[2016-02-25 18:30] VITALS: BP 177/87
[2016-02-25] MEDS ORDERED: OXYC1TAB23 PO (18:52)
[2016-02-25] MEDS ORDERED: TYLE325T5 PO (18:52)
[2016-02-25 19:00] VITALS: BP 144/85
--- NOTE | 2016-02-25 19:33 | REP ---
Retrograde pyelogram: 02/25/2016: Clinical history: Renal stone disease. Findings: two images from C-arm fluoroscopy provided to Dr. Jiang of the urology division for a left fluoroscopic guided ureteral stent placement. The two view show some contrast in the collecting system of the left kidney with a pigtail stent coiled adjacent and the second image showing the distal end of that same pigtail coiled in the bladder. Stones could certainly be obscured. Contrast may obscure some stones with overlapping stool and gas combined. I suspect filling defects with the large renal stone on CT present. Fluoroscopy time: 34 seconds. Signed by Mckinley Kraus MD 02/25/2016 08:06 P
--- NOTE | 2016-02-26 07:13 | RO ---
DATE OF PROCEDURE: 02/25/2016 PREPROCEDURE DIAGNOSIS: Obstructing left ureteropelvic junction stone. POSTPROCEDURE DIAGNOSIS: Obstructing left ureteropelvic junction stone. PROCEDURE: Cystoscopy, left retrograde pyelogram with intraoperative interpretation of images, left ureteral stent placement. SURGEON: Dr. Casimiro Jiang SPECIALTY THERAPIST: None. ANESTHESIA: Monitored anesthesia care (MAC). OPERATIVE INDICATIONS: This is a 80-year-old female who presented to the emergency room today with severe left flank pain. A CAT scan of the abdomen and pelvis was obtained and notable for an obstructing 2 cm left ureteropelvic junction stone. Her urinalysis was also notable for 35 white blood cells raising concern for possible infection. Her pain was not well controlled. It was recommended she be brought to the operating room today for the above listed procedure. DESCRIPTION OF PROCEDURE: The patient was brought to the operating room and MAC anesthesia was administered. Prophylactic antibiotics were infused earlier in the day. She was then placed in dorsal lithotomy position and prepped and draped in the usual sterile fashion. A rigid cystoscope was then inserted into the urethral meatus and advanced into the bladder. Once within the bladder, an open ended ureteral catheter was advanced up the left collecting system. A retrograde pyelogram was then performed and notable for severe left hydronephrosis with no extravasation. At this point, a wire was then advanced up the left collecting system. The open ended ureteral catheter was then removed and the wire was utilized to advance a 7 Nepali x 22-32 cm JJ ureteral stent up into the left collecting system. The wire was then removed and there were adequate curls of the stent in the left renal pelvis and in the bladder. The bladder was then emptied of all fluid and this marked the conclusion of the procedure. The patient was then taken out of the dorsal lithotomy position, awakened from anesthesia and transported to the recovery room in stable condition. ESTIMATED BLOOD LOSS: 0 mL. COMPLICATIONS: None. SPECIMEN: None. PLAN: The patient will be discharged home with pain medication as well as antibiotics for about 10 days. She also will need to be seen back in the office to be set up for a left percutaneous nephrolithotomy for management of the stone. DANNI
--- NOTE | 2016-02-27 16:03 | EDDOCDS ---
Physician Documentation [facility] Name: Clarissa Witt Age: 80 yrs Sex: Female : 1935 Arrival Date: 02/25/2016 Time: 07:56 Bed 18 Private MD: Richard Mclain P. Disposition: 02/25/16 10:42 Hospitalization ordered by Casimiro Stubbs for Inpatient Admission. Preliminary diagnosis are Unspecified renal colic - with moderate hydronephrosis, Cystitis, unspecified with hematuria. - Bed requested for 4 [place]. - Status is Inpatient Admission. ead - Condition is Stable. - Problem is new. - Symptoms are unchanged. Historical: - Allergies: Latex; Streptomycin Sulfate; - Home Meds: 1. Sertraline 25 mg daily 2. omeprazole 40 mg Oral cpDR 1 cap once daily 3. oxybutynin chloride 10 mg Oral tr24 1 tab once daily 4. losartan 25 mg oral tab 1 tab once daily 5. simvastatin 20 mg Oral tab 1 tab once daily 6. Vitamin D3 5,000 unit oral tab daily 7. multivitamin Oral tab daily 8. calcium Unknown 9. Chlorthalidone Oral - PMHx: Colitis; High Cholesterol; Hypertension; Depression; Kidney stones; - PSHx: back surgery 08/2008; - Social history: Smoking status: Patient states was never smoker of tobacco. No barriers to communication noted, The patient speaks fluent Spanish, Speaks appropriately for age. - Family history: Not pertinent. - : The pt / caregiver states he / she is not on anticoagulants. Home medication list is obtained from the patient. - Exposure Risk Screening:: None identified. Vital Signs: 02/24 08:11 BP 176 / 92; Pulse 94; Resp 16; Temp 98.2(TE); Pulse Ox 97% on R/A; Weight 77.11 kg / mlb1 170 lbs (R); Height 5 ft. 11 in. (180.34 cm); Pain 8/10; 08:42 BP 159 / 76 (auto/); ead 08:43 Pulse Ox 98% ; ead 09:12 BP 156 / 76 (auto/); ead 09:12 Pulse 70; Resp 16; Pulse Ox 97% ; ead 09:20 Pain 2/10; ead 09:40 Pulse 70; Resp 16; Pulse Ox 95% ; ead 09:42 BP 170 / 75 (auto/); kc3 10:11 Pulse Ox 96% ; ead 10:12 BP 180 / 79 (auto/); kc3 10:35 Pulse 73; Resp 18; Pulse Ox 97% ; ead 10:42 BP 186 / 76 (auto/); kc3 11:10 Pulse Ox 97% ; ead 11:12 BP 162 / 74 (auto/); ead 11:12 Pulse Ox 97% ; ead 12:12 BP 151 / 66 (auto/); ead 12:12 Pulse Ox 95% ; ead 12:33 Pulse Ox 95% ; ead 12:34 BP 153 / 70 (auto/); ead 12:42 BP 151 / 65 (auto/); ead 12:47 Pulse 74; Resp 16; Pulse Ox 97% ; ead 14:37 BP 142 / 65; Pulse 73; Resp 18; Temp 98.7(O); Pulse Ox 95% on R/A; mcp 08:11 Body Mass Index 23.71 (77.11 kg, 180.34 cm) mlb1 MDM: 08:32 IV Saline Lock ordered. ml 08:32 NS 0.9% 1000 ml IV at 100 mL/hr continuous ordered. ml 08:32 Ondansetron 4 mg IVP once ordered. ml 08:32 morphine 2 mg IVP every 5 minutes; Document pain score/vitals after each dose (Hold if ml SBP < 90mmHg) x3 ordered. 08:32 ketorolac 30 mg IVP once ordered. ml 08:33 CBC with Diff Ordered. EDMS 08:33 MED Profile Ordered. EDMS 08:33 Liver Profile Ordered. EDMS 08:33 Lipase Ordered. EDMS 08:33 Amylase Ordered. EDMS 08:33 UA Ordered. EDMS 08:33 Urine Culture Ordered. EDMS 08:34 CT ABD & PELVIS: No Contrast Ordered. EDMS 08:51 Financial registration complete. pm4 08:58 [facility] Payment Agreement was scanned into [id number] and attached to record. pm4 09:17 CBC with Diff Reviewed. ml 09:17 MED Profile Reviewed. ml 09:17 Liver Profile Reviewed. ml 09:17 Lipase Reviewed. ml 09:17 Amylase Reviewed. ml 09:18 Misc. Nursing Order ordered. ml 10:10 BED REQUEST+ADM ordered. EDMS 10:19 UA Reviewed. ml 10:19 CT ABD & PELVIS: No Contrast Reviewed. ml 10:20 cefTRIAXone 1 grams IVPB once over 30 mins; dilute in 50mL of NS or D5W ordered. ml 11:30 Admission / Observation Status ordered. EDMS 11:30 NPO DIET ordered. EDMS 11:39 ECG WITH READING ER PHYS+CARDIAG ordered. EDMS 11:39 Chest, 2 View (pa\E\lat) Ordered. EDMS 12:44 ED course: dr stubbs requested cxr 2 view (nad) and ecg for pre op. ecg 73 nsr lad ml ivcd nonspecific st t wave changes . mlg. 02/25 10:07 T-Sheet-- Draft Copy was scanned into [id number] and attached to record. gb 10:07 ECG/EKG was scanned into [id number] and attached to record. gb 10:08 Radiology Report was scanned into [employer] and attached to record. gb 11:58 T-Sheet-- Draft Copy was scanned into [id number] and attached to record. gb Administered Medications: 02/24 08:56 Drug: Ondansetron 4 mg [ondansetron HCl 2 mg/mL intravenous solution (2 mL)] Route: ead IVP; Site: right antecubital; 09:20 Follow up: Response: Nausea is resolved; No Adverse Reaction ead 08:58 Drug: ketorolac 30 mg [ketorolac 30 mg/mL (1 mL) injection solution (1 mL)] Route: IVP; ead Site: right antecubital; 09:20 Follow up: Pain 2/10 Adult; Response: No Adverse Reaction; Pain is decreased ead 09:00 Drug: morphine 2 mg [morphine 2 mg/mL intravenous cartridge (1 mL)] Route: IVP; Site: ead right antecubital; 09:38 Follow up: Response: Confirmed pt not driving.; No Adverse Reaction; Pain is decreased ead 09:30 Drug: NS 0.9% 1000 ml [sodium chloride 0.9 % intravenous solution] Route: IV; Rate: 100 ead mL/hr; Site: right antecubital; 10:55 Drug: cefTRIAXone 1 grams [ceftriaxone 1 gram solution for injection] Route: IVPB; kc3 Infused Over: 30 mins; Site: right antecubital; 11:25 Follow up: Response: No Adverse Reaction; IV Status: Completed infusion; IV Intake: 50mlead Signatures: Dispatcher [employer] EDMireya Dennis MD MD ml Marita Calderón, Reg Reg gb Sulaiman England RN RN mlb1 Yessenia KasperRN RN michelled Dede Miller RN RN sls2 Francisco Williamson, Reg Reg pm4 Alda Herrera RN kc3 The chart was reviewed and I authenticate all verbal orders and agree with the evaluation and treatment provided.Attachments: 08:58 [facility] Payment Agreement pm4 10:07 ECG/EKG gb 11:58 T-Sheet-- Draft Copy gb Chart Complete MTDD
--- NOTE | 2016-02-27 16:03 | EDDOCDS ---
Nurse's Notes [facility] Name: Clarissa Witt Age: 80 yrs Sex: Female : 1935 Arrival Date: 02/25/2016 Time: 07:56 Bed 18 Private MD: Richard Mclain P. Diagnosis: Unspecified renal colic-with moderate hydronephrosis;Cystitis, unspecified with hematuria Presentation: 02/24 08:01 Presenting complaint: Patient states: Left flank pain began on 02/19/16 worse since last mlb1 night no BM for the past three days. Acute neurological deficits are not present. Mechanism of Injury: No Mechanism of Injury. Adult Sepsis Screening: The patient does not have new or worsening altered mentation. Patient's respiratory rate is less than 22. Systolic blood pressure is greater than 100. Patient has a qSOFA score of 0- Negative Sepsis Screen. Suicide/Homicide risk assessment- the patient denies having any suicidal and/or homicidal ideations and does not present with any other emotional, behavioral or mental health complaints. Status: Patient is not a line service attendant or dependent. Transition of care: patient was not received from another setting of care. 08:01 Acuity: [place] Level 3 mlb1 08:01 Method Of Arrival: Walkin/Carried/Asstd mlb1 Triage Assessment: 08:10 General: Appears distressed, Behavior is anxious, appropriate for age. Pain: Location: mlb1 left flank Pain currently is 8 out of 10 on a pain scale. GI: Reports constipation, nausea. Musculoskeletal: No deficits noted. Historical: - Allergies: Latex; Streptomycin Sulfate; - Home Meds: 1. Sertraline 25 mg daily 2. omeprazole 40 mg Oral cpDR 1 cap once daily 3. oxybutynin chloride 10 mg Oral tr24 1 tab once daily 4. losartan 25 mg oral tab 1 tab once daily 5. simvastatin 20 mg Oral tab 1 tab once daily 6. Vitamin D3 5,000 unit oral tab daily 7. multivitamin Oral tab daily 8. calcium Unknown 9. Chlorthalidone Oral - PMHx: Colitis; High Cholesterol; Hypertension; Depression; Kidney stones; - PSHx: back surgery 08/2008; - Social history: Smoking status: Patient states was never smoker of tobacco. No barriers to communication noted, The patient speaks fluent Jamaican, Speaks appropriately for age. - Family history: Not pertinent. - : The pt / caregiver states he / she is not on anticoagulants. Home medication list is obtained from the patient. - Exposure Risk Screening:: None identified. Screenin:13 Screening information is obtained from the patient. Fall risk: No risks identified. ead Assistance ADL's: requires no assistance with activities of daily living. Abuse/DV Screen: The patient / caregiver reports he/she is: not in a situation that causes fear, pain or injury. Nutritional screening: No deficits noted. Advance Directives: Currently, there is a health care proxy, Jolynn Witt (daughter in law). There is no active DNR order. There is no living will. There is an active Power of Purchasing Intern, Jolynn Witt (daughter in law). information regarding advance directives can be obtained from Jolynn Witt home: [phone]. cell: [phone]. home support is adequate. Assessment: 09:03 General: Appears in no apparent distress, uncomfortable, well nourished, well groomed, ead Behavior is appropriate for age, cooperative, pleasant. Pain: Location: left flank Pain currently is 10 out of 10 on a pain scale. Neurological: No deficits noted. GI: Abdomen is non- distended Reports lower abdominal pain, nausea. Derm: Skin is pink, warm & dry. Musculoskeletal: Reports pain in left flank. 09:38 Reassessment: Patient appears in no apparent distress at this time. Patient states ead feeling better. Patient states symptoms have improved. 10:55 General: Appears in no apparent distress, comfortable, Behavior is appropriate for age, kc3 cooperative. Neurological: Level of Consciousness is awake, alert, obeys commands, Oriented to person, place, time. Respiratory: Respiratory effort is even, unlabored. Derm: Skin is pink, warm & dry. 11:34 General: This nurse received call from Dr. Monk. Asked to verify pt's allergy to ead codeine. Pt states she is not allergic to codeine. Dr. Monk made aware. Dr. Monk also requesting two view chest x-ray and EKG done in ER prior to going to OR. Dr. Monk also states pt to go to OR at approx 1600 for stent placement for kidney stone. . 12:30 General: Appears in no apparent distress, comfortable. Pain: Location: left flank Pain ead currently is 1 out of 10 on a pain scale. Neurological: No deficits noted. Respiratory: Airway is patent Respiratory effort is even, unlabored. GI: Denies nausea, vomiting. Derm: Skin is pink, warm & dry. 13:30 General: Appears in no apparent distress, comfortable, Behavior is appropriate for age, ead cooperative. General: pt updated of bed status to rom 4201 and plan for stent placement with Dr. Monk later today. Pt's family maintains at bedside. pt denies needs. . Pain: Denies pain. Respiratory: Airway is patent Respiratory effort is even, unlabored. Derm: Skin is pink, warm & dry. Vital Signs: 08:11 BP 176 / 92; Pulse 94; Resp 16; Temp 98.2(TE); Pulse Ox 97% on R/A; Weight 77.11 kg mlb1 (R); Height 5 ft. 11 in. (180.34 cm); Pain 8/10; 08:42 BP 159 / 76 (auto/); ead 08:43 Pulse Ox 98% ; ead 09:12 BP 156 / 76 (auto/); ead 09:12 Pulse 70; Resp 16; Pulse Ox 97% ; ead 09:20 Pain 2/10; ead 09:40 Pulse 70; Resp 16; Pulse Ox 95% ; ead 09:42 BP 170 / 75 (auto/); kc3 10:11 Pulse Ox 96% ; ead 10:12 BP 180 / 79 (auto/); kc3 10:35 Pulse 73; Resp 18; Pulse Ox 97% ; ead 10:42 BP 186 / 76 (auto/); kc3 11:10 Pulse Ox 97% ; ead 11:12 BP 162 / 74 (auto/); ead 11:12 Pulse Ox 97% ; ead 12:12 BP 151 / 66 (auto/); ead 12:12 Pulse Ox 95% ; ead 12:33 Pulse Ox 95% ; ead 12:34 BP 153 / 70 (auto/); ead 12:42 BP 151 / 65 (auto/); ead 12:47 Pulse 74; Resp 16; Pulse Ox 97% ; ead 14:37 BP 142 / 65; Pulse 73; Resp 18; Temp 98.7(O); Pulse Ox 95% on R/A; mcp 08:11 Body Mass Index 23.71 (77.11 kg, 180.34 cm) mlb1 Vitals: 08:11 Log In Time: February 25, 2016 at 07:56. mlb1 ED Course: 07:58 Patient visited by Alex Arciniega. mm15 07:58 Richard Mclain is Private Physician. mm15 07:58 Patient moved to Waiting mm15 08:01 Patient visited by Sulaiman England, RN. mlb1 08:04 Triage Initiated mlb1 08:12 Patient visited by Sulaiman England, RN. mlb1 08:15 Yessenia Kasper,RN is Primary Nurse. mlb1 08:15 Patient moved to 18 mlb1 08:23 Mireya Briones MD is Attending Physician. ml 08:23 Patient visited by Mireya Briones MD. ml 08:30 Patient has correct armband on for positive identification. Placed in gown. Bed in low ead position. Call light in reach. Side rails up X 1. Adult w/ patient. Pulse ox on. NIBP on. 08:44 Patient visited by Yessenia Kasper RN. ead 08:45 Lipase Sent. ead 08:45 Amylase Sent. ead 08:45 Liver Profile Sent. ead 08:45 MED Profile Sent. ead 08:45 CBC with Diff Sent. ead 08:45 Inserted peripheral IV: 20gauge IV in right antecubital area and blood collected. ead Patient tolerated the procedure well. 08:58 [place] [place] was scanned into [employer] and attached to record. pm4 09:39 Patient visited by Yessenia Kasper RN. ead 09:40 CT ABD & PELVIS: No Contrast Returned. EDMS 10:03 Patient visited by Yessenia Kasper RN. ead 10:03 UA Sent. ead 10:03 Urine Culture Sent. ead 10:35 Patient visited by Enrike Koroma PCA. jlf 10:42 Casimiro Jiang is Hospitalizing Provider. ml 10:57 Patient visited by Alda Herrera RN. kc3 12:42 Patient visited by Enrike Koroma PCA. jlf 12:42 EKG done. (by ED staff). Reviewed by Mireya Briones MD. jlf 13:13 The patient / caregiver is instructed regarding the plan of care and ED course. ead 13:16 No procedures done that require assistance. ead 02/25 10:07 T-Sheet-- Draft Copy was scanned into [employer] and attached to record. gb 10:07 ECG/EKG was scanned into [employer] and attached to record. gb 10:08 Radiology Report was scanned into [employer] and attached to record. gb 11:58 T-Sheet-- Draft Copy was scanned into [employer] and attached to record. gb Administered Medications: 02/24 08:56 Drug: Ondansetron 4 mg [ondansetron HCl 2 mg/mL intravenous solution (2 mL)] Route: ead IVP; Site: right antecubital; 09:20 Follow up: Response: Nausea is resolved; No Adverse Reaction ead 08:58 Drug: ketorolac 30 mg [ketorolac 30 mg/mL (1 mL) injection solution (1 mL)] Route: IVP; ead Site: right antecubital; 09:20 Follow up: Pain 2/10 Adult; Response: No Adverse Reaction; Pain is decreased ead 09:00 Drug: morphine 2 mg [morphine 2 mg/mL intravenous cartridge (1 mL)] Route: IVP; Site: ead right antecubital; 09:38 Follow up: Response: Confirmed pt not driving.; No Adverse Reaction; Pain is decreased ead 09:30 Drug: NS 0.9% 1000 ml [sodium chloride 0.9 % intravenous solution] Route: IV; Rate: 100 ead mL/hr; Site: right antecubital; 10:55 Drug: cefTRIAXone 1 grams [ceftriaxone 1 gram solution for injection] Route: IVPB; kc3 Infused Over: 30 mins; Site: right antecubital; 11:25 Follow up: Response: No Adverse Reaction; IV Status: Completed infusion; IV Intake: 50mlead Intake: 11:25 IV: 50.00ml; Total: 50.00ml. ead Order Results: Lab Order: CBC with Diff; SPEC'M 02/25/16 08:42 Test: WHITE BLOOD COUNT; Value: 6.3; Range: 4.0-10.0; Units: K/mm3; Status: F Test: RED BLOOD COUNT; Value: 4.11; Range: 4.00-5.40; Units: M/mm3; Status: F Test: HEMOGLOBIN; Value: 12.1; Range: 12.0-16.0; Units: g/dl; Status: F Test: HEMATOCRIT; Value: 34.6; Range: 36.0-47.0; Abnormal: Below low normal; Units: %; Status: F Test: MEAN CORPUSCULAR VOLUME; Value: 84.3; Range: 80.0-96.0; Units: fl; Status: F Test: MEAN CORPUSCULAR HEMOGLOBIN; Value: 29.3; Range: 27.0-33.0; Units: pg; Status: F Test: MEAN CORPUSCULAR HGB CONC; Value: 34.8; Range: 32.0-36.5; Units: g/dl; Status: F Test: RED CELL DISTRIBUTION WIDTH; Value: 13.1; Range: 11.5-14.5; Units: %; Status: F Test: PLATELET COUNT, AUTOMATED; Value: 177; Range: 150-450; Units: k/mm3; Status: F Test: NEUTROPHILS %; Value: 78.6; Range: 36.0-66.0; Abnormal: Above high normal; Units: %; Status: F Test: LYMPH %; Value: 13.0; Range: 24.0-44.0; Abnormal: Below low normal; Units: %; Status: F Test: MONO %; Value: 5.8; Range: 0.0-5.0; Abnormal: Above high normal; Units: %; Status: F Test: EOS %; Value: 1.3; Range: 0.0-3.0; Units: %; Status: F Test: BASO %; Value: 0.1; Range: 0.0-1.0; Units: %; Status: F Test: LARGE UNSTAINED CELL %; Value: 1.2; Range: 0.0-4.0; Units: %; Status: F Test: NEUTROPHILS #; Value: 5.0; Range: 1.8-7.7; Units: K/mm3; Status: F Test: LYMPH #; Value: 0.8; Range: 1.5-4.5; Abnormal: Below low normal; Units: K/mm3; Status: F Test: MONO #; Value: 0.4; Range: 0.0-0.8; Units: K/mm3; Status: F Test: EOS #; Value: 0.1; Range: 0.0-0.50; Units: K/mm3; Status: F Test: BASO #; Value: 0.0; Range: 0.0-0.2; Units: K/mm3; Status: F Test: LARGE UNSTAINED CELL #; Value: 0.1; Range: 0.0-0.4; Units: K/mm3; Status: F Lab Order: MED Profile; SPEC'M 02/25/16 08:42 Test: GLUCOSE, FASTING; Value: 96; Range: 83-110; Units: MG/DL; Status: F Test: BLOOD UREA NITROGEN; Value: 18; Range: 7-18; Units: MG/DL; Status: F Test: CREATININE FOR GFR; Value: 0.94; Range: 0.55-1.02; Units: MG/DL; Status: F Test: GLOMERULAR FILTRATION RATE; Value: > 60.0; Range: >39; Status: F Test: SODIUM LEVEL; Value: 143; Range: 136-145; Units: MEQ/L; Status: F Test: POTASSIUM SERUM; Value: 3.2; Range: 3.5-5.1; Abnormal: Below low normal; Units: MEQ/L; Status: F Test: CHLORIDE LEVEL; Value: 109; Range: 98-107; Abnormal: Above high normal; Units: MEQ/L; Status: F Test: CARBON DIOXIDE LEVEL; Value: 23; Range: 21-32; Units: MEQ/L; Status: F Test: ANION GAP; Value: 11; Range: 8-16; Units: MEQ/L; Status: F Test: CALCIUM LEVEL; Value: 8.9; Range: 8.8-10.2; Units: MG/DL; Status: F Test Note: ; Units are mL/min/1.73 m2 Chronic Kidney Disease Staging per NKF: Stage I & II GFR >=60 Normal to Mildly Decreased Stage III GFR 30-59 Moderately Decreased Stage IV GFR 15-29 Severely Decreased Stage V GFR <15 Very Little GFR Left ESRD GFR <15 on AGRICULTURE MANAGER Lab Order: Liver Profile; SPEC'M 02/25/16 08:42 Test: AST/SGOT; Value: 19; Range: 15-37; Units: U/L; Status: F Test: ALT/SGPT; Value: 17; Range: 12-78; Units: U/L; Status: F Test: ALKALINE PHOSPHATASE; Value: 38; Range: 45-117; Abnormal: Below low normal; Units: U/L; Status: F Test: BILIRUBIN,TOTAL; Value: 0.7; Range: 0.2-1.0; Units: MG/DL; Status: F Test: BILIRUBIN,DIRECT; Value: 0.2; Range: 0.0-0.2; Units: MG/DL; Status: F Test: TOTAL PROTEIN; Value: 6.3; Range: 6.4-8.2; Abnormal: Below low normal; Units: GM/DL; Status: F Test: ALBUMIN; Value: 3.4; Range: 3.2-5.2; Units: GM/DL; Status: F Test: ALBUMIN/GLOBULIN RATIO; Value: 1.17; Range: 1.00-1.93; Status: F Lab Order: Lipase; [facility] 02/25/16 08:42 Test: LIPASE; Value: 212; Range: 73-393; Units: U/L; Status: F Lab Order: Amylase; [facility] 02/25/16 08:42 Test: AMYLASE; Value: 45; Range: 25-115; Units: U/L; Status: F Lab Order: UA; [facility] 02/25/16 10:01 Test: APPEARANCE, URINE; Value: CLEAR; Range: CLEAR; Status: F Test: COLOR, URINE; Value: STRAW; Range: YELLOW; Status: F Test: PH,URINE; Value: 7.0; Range: 5.0-9.0; Units: UNITS; Status: F Test: SPECIFIC GRAVITY URINE AUTO; Value: 1.005; Range: 1.002-1.035; Status: F Test: PROTEIN, URINE AUTO; Value: NEGATIVE; Range: NEGATIVE; Units: mg/dL; Status: F Test: GLUCOSE, URINE (UA) AUTO; Value: NEGATIVE; Range: NEGATIVE; Units: mg/dL; Status: F Test: KETONE, URINE AUTO; Value: TRACE; Range: NEGATIVE; Abnormal: Above high normal; Units: mg/dL; Status: F Test: UROBILINOGEN, URINE AUTO; Value: 0.2; Range: 0.0-2.0; Units: mg/dL; Status: F Test: BILIRUBIN, URINE AUTO; Value: NEGATIVE; Range: NEGATIVE; Status: F Test: NITRITE, URINE AUTO; Value: NEGATIVE; Range: NEGATIVE; Status: F Test: LEUKOCYTE ESTERASE, URINE AUTO; Value: 1+; Range: NEGATIVE; Abnormal: Above high normal; Status: F Test: BLOOD, URINE BLOOD; Value: 2+; Range: NEGATIVE; Abnormal: Above high normal; Status: F Test: WBC, URINE AUTO; Value: 35; Range: 0-3; Abnormal: Above high normal; Units: /HPF; Status: F Test: RBC, URINE AUTO; Value: 21; Range: 0-3; Abnormal: Above high normal; Units: /HPF; Status: F Test: BACTERIA, URINE AUTO; Value: NEGATIVE; Range: NEGATIVE; Status: F Test: SQUAMOUS EPITHELIAL CELL UR AU; Value: 0; Range: 0-6; Units: /HPF; Status: F Test: MUCUS, URINE; Value: SMALL; Range: NEGATIVE; Status: F Test: HYALINE CAST, URINE AUTO; Value: 0; Range: 0-1; Units: /LPF; Status: F Radiology Order: CT ABD & PELVIS: No Contrast Test: CT ABD & PELVIS: No Contrast REASON FOR EXAMINATION: LEFT FLANK PAIN, HX STONE AND COLITIS; Clinical: Left flank pain.; ; Comparison: 01/20/2011.; ; Findings:; Moderate to marked left obstructive uropathy including grade 4 hydronephrosis and; perinephric stranding is secondary to a 14 x 21 mm calculus obstructing the; ureteropelvic junction. Nonobstructing lower pole left calculi measure up to; approximately 9 mm. The right kidney and ureter appear normal and the bladder is; unremarkable.; ; Liver, spleen, pancreas, and bilateral adrenal glands are normal for noncontrast; examination. The patient is status post cholecystectomy. Evaluation of the; enteric system demonstrates a grskurxj-ez-cxxcd hiatal hernia. There is no; evidence for bowel obstruction or acute inflammatory process. Pelvis; demonstrates prior hysterectomy. No pelvic fluid or ascites. No obvious; adenopathy. Atherosclerotic changes of the aorta noted without aneurysm.; Musculoskeletal structures demonstrate degenerative changes including posterior; lumbar fixation and laminectomy. Lung bases demonstrate chronic changes.; ; Impression:; 1. Moderate to marked acute left obstructive uropathy with 21 mm calculus at the; ureteropelvic junction and multiple nonobstructing left renal calculi measuring; up to 9 mm.; 2. Moderate hiatal hernia.; ; ; Signed by; Sameer Fountain MD 02/25/2016 09:27 A; Outcome: 10:42 Decision to Hospitalize by Provider. 13:16 Discharge Assessment: patient administered narcotics - yes. Patient was admitted to the [facility] hospital or transferred to another facility. CT Study completed. 15:02 The following High Risk Discharge criteria are identified: None. Admitted to Med/Surg ead accompanied by tech, family with patient, via stretcher, with chart. Condition: stable. Property :Personal belongings accompany Pt. 15:02 Patient left the ED. [facility] Signatures: Dispatcher [employer] EDNH Mireya Briones MD MD ml Peters, Mary, RN RN Marita Varela, Reg Reg gb Sulaiman England RN RN mlb1 Alex Arciniega mm15 Enrike Koroma, WRAPPER SORTER WRAPPER SORTER jlf Yessenia Kasper,RN RN Alda AlbertoRN RN kc3 Francisco Williamson, Reg Reg pm4 Corrections: (The following items were deleted from the chart) 11:36 11:34 General: This nurse received call from Dr. Monk. Asked to verify pt's ead allergy to codeine. Pt states she is not allergic to codeine. Dr. Monk made aware. Dr. Monk also requesting two view chest x-ray and EKG done in ER prior to going to OR. . ead Chart Complete MTDD
--- NOTE | 2016-02-27 16:03 | EDDOCDS ---
Physician Documentation [facility] Name: Clarissa Witt Age: 80 yrs Sex: Female : 1935 Arrival Date: 02/25/2016 Time: 07:56 Bed 18 Private MD: Richard Mclain P. Disposition: 02/25/16 10:42 Hospitalization ordered by Casimiro Stubbs for Inpatient Admission. Preliminary diagnosis are Unspecified renal colic - with moderate hydronephrosis, Cystitis, unspecified with hematuria. - Bed requested for 4 [employer]. - Status is Inpatient Admission. ead - Condition is Stable. - Problem is new. - Symptoms are unchanged. Historical: - Allergies: Latex; Streptomycin Sulfate; - Home Meds: 1. Sertraline 25 mg daily 2. omeprazole 40 mg Oral cpDR 1 cap once daily 3. oxybutynin chloride 10 mg Oral tr24 1 tab once daily 4. losartan 25 mg oral tab 1 tab once daily 5. simvastatin 20 mg Oral tab 1 tab once daily 6. Vitamin D3 5,000 unit oral tab daily 7. multivitamin Oral tab daily 8. calcium Unknown 9. Chlorthalidone Oral - PMHx: Colitis; High Cholesterol; Hypertension; Depression; Kidney stones; - PSHx: back surgery 08/2008; - Social history: Smoking status: Patient states was never smoker of tobacco. No barriers to communication noted, The patient speaks fluent Croatian, Speaks appropriately for age. - Family history: Not pertinent. - : The pt / caregiver states he / she is not on anticoagulants. Home medication list is obtained from the patient. - Exposure Risk Screening:: None identified. Vital Signs: 02/24 08:11 BP 176 / 92; Pulse 94; Resp 16; Temp 98.2(TE); Pulse Ox 97% on R/A; Weight 77.11 kg / mlb1 170 lbs (R); Height 5 ft. 11 in. (180.34 cm); Pain 8/10; 08:42 BP 159 / 76 (auto/); ead 08:43 Pulse Ox 98% ; ead 09:12 BP 156 / 76 (auto/); ead 09:12 Pulse 70; Resp 16; Pulse Ox 97% ; ead 09:20 Pain 2/10; ead 09:40 Pulse 70; Resp 16; Pulse Ox 95% ; ead 09:42 BP 170 / 75 (auto/); kc3 10:11 Pulse Ox 96% ; ead 10:12 BP 180 / 79 (auto/); kc3 10:35 Pulse 73; Resp 18; Pulse Ox 97% ; ead 10:42 BP 186 / 76 (auto/); kc3 11:10 Pulse Ox 97% ; ead 11:12 BP 162 / 74 (auto/); ead 11:12 Pulse Ox 97% ; ead 12:12 BP 151 / 66 (auto/); ead 12:12 Pulse Ox 95% ; ead 12:33 Pulse Ox 95% ; ead 12:34 BP 153 / 70 (auto/); ead 12:42 BP 151 / 65 (auto/); ead 12:47 Pulse 74; Resp 16; Pulse Ox 97% ; ead 14:37 BP 142 / 65; Pulse 73; Resp 18; Temp 98.7(O); Pulse Ox 95% on R/A; mcp 08:11 Body Mass Index 23.71 (77.11 kg, 180.34 cm) mlb1 MDM: 08:32 IV Saline Lock ordered. ml 08:32 NS 0.9% 1000 ml IV at 100 mL/hr continuous ordered. ml 08:32 Ondansetron 4 mg IVP once ordered. ml 08:32 morphine 2 mg IVP every 5 minutes; Document pain score/vitals after each dose (Hold if ml SBP < 90mmHg) x3 ordered. 08:32 ketorolac 30 mg IVP once ordered. ml 08:33 CBC with Diff Ordered. EDMS 08:33 MED Profile Ordered. EDMS 08:33 Liver Profile Ordered. EDMS 08:33 Lipase Ordered. EDMS 08:33 Amylase Ordered. EDMS 08:33 UA Ordered. EDMS 08:33 Urine Culture Ordered. EDMS 08:34 CT ABD & PELVIS: No Contrast Ordered. EDMS 08:51 Financial registration complete. pm4 08:58 [place] [place] Payment Agreement was scanned into [employer] and attached to record. pm4 09:17 CBC with Diff Reviewed. ml 09:17 MED Profile Reviewed. ml 09:17 Liver Profile Reviewed. ml 09:17 Lipase Reviewed. ml 09:17 Amylase Reviewed. ml 09:18 Misc. Nursing Order ordered. ml 10:10 BED REQUEST+ADM ordered. EDMS 10:19 UA Reviewed. ml 10:19 CT ABD & PELVIS: No Contrast Reviewed. ml 10:20 cefTRIAXone 1 grams IVPB once over 30 mins; dilute in 50mL of NS or D5W ordered. ml 11:30 Admission / Observation Status ordered. EDMS 11:30 NPO DIET ordered. EDMS 11:39 ECG WITH READING ER PHYS+CARDIAG ordered. EDMS 11:39 Chest, 2 View (pa\E\lat) Ordered. EDMS 12:44 ED course: dr stubbs requested cxr 2 view (nad) and ecg for pre op. ecg 73 nsr lad ml ivcd nonspecific st t wave changes . mlg. 02/25 10:07 T-Sheet-- Draft Copy was scanned into [employer] and attached to record. gb 10:07 ECG/EKG was scanned into [employer] and attached to record. gb 10:08 Radiology Report was scanned into [employer] and attached to record. gb 11:58 T-Sheet-- Draft Copy was scanned into [employer] and attached to record. gb Administered Medications: 02/24 08:56 Drug: Ondansetron 4 mg [ondansetron HCl 2 mg/mL intravenous solution (2 mL)] Route: ead IVP; Site: right antecubital; 09:20 Follow up: Response: Nausea is resolved; No Adverse Reaction ead 08:58 Drug: ketorolac 30 mg [ketorolac 30 mg/mL (1 mL) injection solution (1 mL)] Route: IVP; ead Site: right antecubital; 09:20 Follow up: Pain 2/10 Adult; Response: No Adverse Reaction; Pain is decreased ead 09:00 Drug: morphine 2 mg [morphine 2 mg/mL intravenous cartridge (1 mL)] Route: IVP; Site: ead right antecubital; 09:38 Follow up: Response: Confirmed pt not driving.; No Adverse Reaction; Pain is decreased ead 09:30 Drug: NS 0.9% 1000 ml [sodium chloride 0.9 % intravenous solution] Route: IV; Rate: 100 ead mL/hr; Site: right antecubital; 10:55 Drug: cefTRIAXone 1 grams [ceftriaxone 1 gram solution for injection] Route: IVPB; kc3 Infused Over: 30 mins; Site: right antecubital; 11:25 Follow up: Response: No Adverse Reaction; IV Status: Completed infusion; IV Intake: 50mlead Signatures: Dispatcher [employer] EDMireya Dennis MD MD ml Marita Calderón, Reg Reg gb Sulaiman England RN RN mlb1 Yessenia KasperRN RN michelled Dede Miller RN RN sls2 Francisco Williamson, Reg Reg pm4 Alda Herrera RN kc3 The chart was reviewed and I authenticate all verbal orders and agree with the evaluation and treatment provided.Attachments: 08:58 [place] [place] Payment Agreement pm4 10:07 ECG/EKG gb 11:58 T-Sheet-- Draft Copy gb Chart Complete MTDD
== END 2016-02-25 19:40 | disposition home or self-care (01) ==
LOC: M ED 07:56 → M SDC 11:13 → M MSPAV 15:29 → M SDC 19:40
PROVIDERS: ATTEND Urology
DX: N20.1 Calculus of ureter (principal); K21.9 Gastro-esophageal reflux disease without esophagitis; G89.29 Other chronic pain; M54.9 Dorsalgia, unspecified; F32.9 Major depressive disorder, single episode, unspecified; M06.9 Rheumatoid arthritis, unspecified; Z88.1 Allergy status to other antibiotic agents; Z88.5 Allergy status to narcotic agent; Z88.8 Allergy status to other drugs, medicaments and biological substances; Z91.018 Allergy to other foods; Z91.040 Latex allergy status; Z91.048 Other nonmedicinal substance allergy status; Z79.899 Other long term (current) drug therapy
CPT/HCPCS: 36415; 52332; 71020; 74176; 74420; 80048; 80076; 81001; 82150; 83690; 85025; 87086; 93005; 96365; 96375; 99285; J0696; J1885; J2250; J2405; J3010; Q9961

== ENCOUNTER → 2016-03-18 | Outpatient (CLI) | payer MEDICARE ==
[~2016-03-18] MED LIST changes: +ATOR1TAB21 PO; +CALC600T10 PO; +CALC600T57 PO; +CHLO25TA PO; +D 50CAP PO; +IBUPOTC PO; +LOSA25TA8 PO; +MIRA3350 PO; +OMEP40CA2 PO; +OXYB10TA PO; +OXYC1TAB23 PO; +POTA10CA PO; +SERT-138 PO; +SIMV20TA2 PO; +TYLE325T5 PO; +VITMTA PO; +XANA0.25 PO
[2016-03-18 13:32] LABS: ALBUMIN 3.8 GM/DL (3.2-5.2); ALBUMIN/GLOBULIN RATIO 1.36 (1.00-1.93); ALKALINE PHOSPHATASE 46 U/L (45-117); ALT/SGPT 19 U/L (12-78); ANION GAP 9 MEQ/L (8-16); AST/SGOT 22 U/L (15-37); BILIRUBIN,TOTAL 0.4 MG/DL (0.2-1.0); BLOOD UREA NITROGEN 16 MG/DL (7-18); CALCIUM LEVEL 8.9 MG/DL (8.8-10.2); CARBON DIOXIDE LEVEL 30 MEQ/L (21-32); CHLORIDE LEVEL 105 MEQ/L (98-107); CHOLESTEROL LEVEL 241 MG/DL (<200); CREATININE FOR GFR 0.93 MG/DL (0.55-1.02); GLOMERULAR FILTRATION RATE > 60.0 (>39); GLUCOSE, FASTING 84 MG/DL (83-110); POTASSIUM SERUM 3.3 MEQ/L (3.5-5.1); SODIUM LEVEL 144 MEQ/L (136-145); TOTAL PROTEIN 6.6 GM/DL (6.4-8.2); TRIGLYCERIDES LEVEL 307 MG/DL (<150)
[2016-03-18 13:56] LABS: BASO % 0.2 % (0.0-1.0); EOS # 0.2 K/mm3 (0.0-0.50); EOS % 2.4 % (0.0-3.0); LARGE UNSTAINED CELL # 0.1 K/mm3 (0.0-0.4); LARGE UNSTAINED CELL % 1.7 % (0.0-4.0); LYMPH # 1.2 K/mm3 (1.5-4.5); MEAN CORPUSCULAR HEMOGLOBIN 28.9 pg (27.0-33.0); MEAN CORPUSCULAR HGB CONC 33.8 g/dl (32.0-36.5); MEAN CORPUSCULAR VOLUME 85.4 fl (80.0-96.0); MONO # 0.5 K/mm3 (0.0-0.8); MONO % 6.5 % (0.0-5.0); NEUTROPHILS % 72.1 % (36.0-66.0); PLATELET COUNT, AUTOMATED 227 k/mm3 (150-450); RED CELL DISTRIBUTION WIDTH 12.8 % (11.5-14.5)
== END ==
LOC: M SMT 11:13
PROVIDERS: ATTEND Emergency Medicine
DX: E78.2 Mixed hyperlipidemia (principal); E55.9 Vitamin D deficiency, unspecified; N20.0 Calculus of kidney; I10 Essential (primary) hypertension

== ENCOUNTER → 2016-03-26 | Outpatient (CLI) | payer MEDICARE ==
[~2016-03-26] MED LIST changes: +ACETAMINOPHEN 325 MG TAB As Ordered ONE; +ACETAMINOPHEN TAB 650MG DOSE (2X325MG) PO PRN; +CIPROFLOXACIN 400 MG in APPROPRIATE DILUENT 1 EA IV ONE; +CIPROFLOXACIN/D5W 400 MG/200 ML BAG (J0744) As Ordered ONE; +ISOVUE-300 61% 50ML VIAL (Q9967) As Ordered ONE; +LIDOCAINE 2% MDV 20 ML VIAL As Ordered ONE; +LR 1,000 ML IV SCH; +METOCLOPRAMIDE INJ 10MG/2ML VIAL (J2765) IV PRN; +MIDAZOLAM INJ 2 MG/2 ML VIAL (J2250) As Ordered ONE; +NORCO, ANEXSIA 5/325MG TABLET (HYDROcodone/ACETAMINOPHEN) PO PRN; +ONDANSETRON 4MG/2ML VIAL (J2405) As Ordered ONE; +ONDANSETRON 4MG/2ML VIAL (J2405) IV PRN; +PERCOCET 5MG/325MG TAB PO PRN; +SODIUM BICARBONATE 8.4% INJ 50MEQ 50 ML VIAL As Ordered ONE; +diphenhydrAMINE INJ 50MG/ML VIAL (J1200) As Ordered ONE; +diphenhydrAMINE INJ 50MG/ML VIAL (J1200) IV PRN; +fentaNYL 100 MCG/2 ML INJECTION (J3010) As Ordered ONE; +fentaNYL 100 MCG/2 ML INJECTION (J3010) IV PRN; +oxyBUTYnin 5 MG TAB PO PRN
--- NOTE | 2016-03-26 10:29 | REPKIM ---
CLINICAL HISTORY: Patient presents with multiple left kidney stones. History of hydronephrosis secondary to obstructing UPJ stone which was treated with a JJ internal ureteral stent placement in February 2016 by the urology service. The referring urology service has requested a nephroureteral catheter (stent) placement for preop percutaneous nephrolithotripsy urology procedure. PROCEDURE PERFORMED: 1. Ultrasound Left Kidney 2. Percutaneous antegrade Nephrostogram 3. Percutaneous Nephroureteral catheter (stent) placement INTERVENTIONALIST: Rommel Castaneda MD CONSENT: The risks, benefits and alternatives to the procedure were explained to the patient and informed written consent was obtained. SEDATION: Sedation and analgesia was provided by the Anesthesiology Dept. MEDICATIONS: Cipro 400mg IV, Local Lidocaine CONTRAST: 18 mL Isovue 300 EBL: less than 10 mL FLUORO TIME: 8.9 minutes DEVICE USED: 8.5F 45cm pigtail; Nephroureteral catheter Lot #[id number] PROCEDURE/FINDINGS: The patient was brought to the interventional radiology suite and placed in the prone position, left flank prepped and draped in the usual sterile fashion. Time out procedure was performed. Ultrasound of the kidney showed two large kidney stones, one in the renal pelvis and the smaller one in the lower pole calyx. This also showed no evidence of hydronephrosis. Using ultrasound and fluoroscopy guidance, a 21-gauge Accustick needle was advanced into the targeted posterior lower pole calyceal stone of the left kidney, after infiltration of the skin and deep tissues with local anesthetic. Contrast was injected and images were obtained. This showed antegrade flow of contrast into the urinary bladder. The existing JJ internal ureteral stent is patent in a satisfactory course and position. Using a hydrophilic guidewire, the catheter- wire combination was advanced around the calyceal/renal pelvis stones into the proximal ureter then into the urinary bladder. The wire was then exchanged for a stiff wire. An 8.5-Colombian 45-cm length non-locking pigtail catheter ( nephroureteral catheter) was introduced over the guidewire after serial dilation of its tract. The guidewire was withdrawn and the distal end of the loop positioned in the bladder. The nephroureteral catheter was then flushed and capped. The patient tolerated the procedure well with no immediate complications. This procedure was performed using ultrasound and fluoroscopy. Dr. Castaneda was present. FINDINGS: 1. Left kidney stones, one large stone in the renal pelvis and much smaller one in the lower pole calyx. 2. The existing JJ internal ureteral stent is intact in a satisfactory course and position. There is free antegrade flow of contrast into the bladder. No evidence of hydronephrosis. 3. Successful 8.5F nephroureteral catheter placement via the lower pole posterior calyceal stone. IMPRESSION: Successful nephroureteral catheter (stent) placement via the lower pole posterior calyceal stone with its tip positioned in the bladder as discussed above. This access will be used for subsequent percutaneous nephrolithotripsy urology procedure. cc: TERE Gunn MD MTDD
[2016-03-26 11:30] VITALS: BP 152/70
== END | disposition home or self-care (01) ==
LOC: M IRPRO 07:19
PROVIDERS: ATTEND Nurse Practitioner Family
DX: N13.2 Hydronephrosis with renal and ureteral calculous obstruction (principal)

== ENCOUNTER 2016-03-29 05:43 | Inpatient (IN) | payer MEDICARE ==
[~2016-03-29] VITALS: Ht 165.1 cm; Wt 76.2 kg
[2016-03-29] VITALS (7 sets, daily range): BP systolic 93–136; BP diastolic 52–69
[~2016-03-29 05:43] MED LIST changes: -ACETAMINOPHEN 325 MG TAB As Ordered ONE; -ACETAMINOPHEN TAB 650MG DOSE (2X325MG) PO PRN; -CIPROFLOXACIN 400 MG in APPROPRIATE DILUENT 1 EA IV ONE; -CIPROFLOXACIN/D5W 400 MG/200 ML BAG (J0744) As Ordered ONE; -ISOVUE-300 61% 50ML VIAL (Q9967) As Ordered ONE; -LIDOCAINE 2% MDV 20 ML VIAL As Ordered ONE; -LR 1,000 ML IV SCH; -METOCLOPRAMIDE INJ 10MG/2ML VIAL (J2765) IV PRN; -MIDAZOLAM INJ 2 MG/2 ML VIAL (J2250) As Ordered ONE; -NORCO, ANEXSIA 5/325MG TABLET (HYDROcodone/ACETAMINOPHEN) PO PRN; -ONDANSETRON 4MG/2ML VIAL (J2405) As Ordered ONE; -ONDANSETRON 4MG/2ML VIAL (J2405) IV PRN; -PERCOCET 5MG/325MG TAB PO PRN; -SODIUM BICARBONATE 8.4% INJ 50MEQ 50 ML VIAL As Ordered ONE; -diphenhydrAMINE INJ 50MG/ML VIAL (J1200) As Ordered ONE; -diphenhydrAMINE INJ 50MG/ML VIAL (J1200) IV PRN; -fentaNYL 100 MCG/2 ML INJECTION (J3010) As Ordered ONE; -fentaNYL 100 MCG/2 ML INJECTION (J3010) IV PRN; -oxyBUTYnin 5 MG TAB PO PRN
[2016-03-29] MEDS ORDERED: LR 1,000 ML IV SCH ×2 (06:00→10:15)
[2016-03-29] MEDS ORDERED: CONRAY-60 60% 50ML VIAL (Q9961) As Ordered ONE (07:15)
[2016-03-29] MEDS ORDERED: PERCOCET 5MG/325MG TAB PO PRN (07:45)
[2016-03-29] MEDS ORDERED: MORPHINE 2 MG/ML 1ML SYRINGE IV PRN (07:45)
[2016-03-29] MEDS ORDERED: ONDANSETRON 4MG/2ML VIAL (J2405) IV PRN ×2 (07:45→10:15)
[2016-03-29] MEDS ORDERED: ACETAMINOPHEN TAB 650MG DOSE (2X325MG) PO PRN (07:45)
[2016-03-29] MEDS ORDERED: CONRAY-60 60% 50ML VIAL (Q9961) XX ONE (08:36)
[2016-03-29] MEDS ORDERED: dexameTHASONE 4 MG/ML 1ML VIAL (J1100) As Ordered ONE (08:54)
[2016-03-29] MEDS ORDERED: LIDOCAINE 2% INJ 100 MG/5 ML SDV (FOR ANES.) As Ordered ONE (08:54)
[2016-03-29] MEDS ORDERED: ROCURONIUM BROMIDE 50 MG/5 ML VIAL As Ordered ONE (08:54)
[2016-03-29] MEDS ORDERED: NEOSTIGMINE 1MG/ML 5 ML SYRINGE (J2710) As Ordered ONE (08:54)
[2016-03-29] MEDS ORDERED: ONDANSETRON 4MG/2ML VIAL (J2405) As Ordered ONE (08:54)
[2016-03-29] MEDS ORDERED: MIDAZOLAM INJ 2 MG/2 ML VIAL (J2250) As Ordered ONE (08:54)
[2016-03-29] MEDS ORDERED: ePHEDrine SULFATE 25 MG/5 ML(5MG/ML) SYRINGE As Ordered ONE (08:54)
[2016-03-29] MEDS ORDERED: GLYCOPYRROLATE INJ 0.2 MG/ML 2 ML VIAL As Ordered ONE (08:54)
[2016-03-29] MEDS ORDERED: PROPOFOL 200 MG/20 ML VIAL As Ordered ONE (08:54)
[2016-03-29] MEDS ORDERED: fentaNYL 250 MCG/5 ML INJECTION (J3010) As Ordered ONE (08:55)
[2016-03-29] MEDS ORDERED: LOSARTAN 25 MG TAB PO SCH (09:00)
[2016-03-29] MEDS ORDERED: ESMOLOL INJ 100MG/10ML VIAL As Ordered ONE (09:40)
--- NOTE | 2016-03-29 10:15 | REP ---
C-ARM VIEWS DURING RETROGRADE PYELOGRAM: Six C-arm views are performed during left renal procedure. There appears to be a nephrostomy tube present with a wire extending through it inferiorly into the left ureter. There is a left ureteral stent. Adjacent to the stent is a renal calculus. The calculus was removed. The calculus was no longer visualized on the third image. The final image demonstrates injection of contrast into the left pelvicalyceal system which extends into the left ureter. There is no extravasation. 1 minute 14 seconds fluoroscopy time utilized for the procedure. Signed by Donald Tian MD 03/29/2016 02:17 P
[2016-03-29 10:22] LABS: MEAN CORPUSCULAR HEMOGLOBIN 29.3 pg (27.0-33.0); MEAN CORPUSCULAR HGB CONC 33.6 g/dl (32.0-36.5); RED CELL DISTRIBUTION WIDTH 13.1 % (11.5-14.5); WHITE BLOOD COUNT 6.6 K/mm3 (4.0-10.0)
[2016-03-29] MEDS: fentaNYL 100 MCG/2 ML INJECTION (J3010) IV PRN ×4 (10:30→11:05)
[2016-03-29 10:39] LABS: ANION GAP 8 MEQ/L (8-16); BLOOD UREA NITROGEN 14 MG/DL (7-18); CALCIUM LEVEL 8.2 MG/DL (8.8-10.2); CARBON DIOXIDE LEVEL 28 MEQ/L (21-32); CHLORIDE LEVEL 110 MEQ/L (98-107); CREATININE FOR GFR 0.85 MG/DL (0.55-1.02); GLOMERULAR FILTRATION RATE > 60.0 (>39); GLUCOSE, FASTING 113 MG/DL (83-110); POTASSIUM SERUM 3.5 MEQ/L (3.5-5.1); SODIUM LEVEL 146 MEQ/L (136-145)
[2016-03-29] MEDS: PERCOCET 5MG/325MG TAB PO PRN ×2 (12:51→22:24)
--- NOTE | 2016-03-29 13:27 | RO ---
DATE OF PROCEDURE: 03/29/2016 PREPROCEDURE DIAGNOSIS: Left kidney stones. POSTPROCEDURE DIAGNOSIS: Left kidney stones. PROCEDURE: Left percutaneous nephrolithotomy, left antegrade nephrostogram with intraoperative interpretation of images. SURGEON: Casimiro Jiang MD CYTOGENETIC TECHNICIAN: None. ANESTHESIA: General. OPERATIVE INDICATIONS: This is a 80-year-old female who was brought to the operating room approximately one month ago after she was found to have an obstructing 2 cm left ureteropelvic junction stone, as well as two additional smaller stones. A stent was placed at that time to decompress her left kidney. She is brought back to the operating room today for removal of her stones. DESCRIPTION OF PROCEDURE: The patient was brought to the operating room and general anesthesia was induced. Prophylactic antibiotics were infused. A Gutiérrez catheter was then placed under sterile conditions. She was then repositioned in the prone position with all pressure points appropriately padded. At this point, she was then prepped and draped in the usual sterile fashion. We then gained access through her previously placed nephroureteral stent. The wire was advanced down the left collecting system through the nephroureteral stent. At this point, the nephroureteral stent was removed leaving the wire in place. At this point, a 3cm skin incision was made adjacent to the wire. A dual-lumen ureteral catheter was then advanced over the wire down into the left collecting system. Through the dual-lumen ureteral catheter, a super stiff wire was then advanced down the left collecting system. At this point, the dual-lumen ureteral catheter was removed leaving the super stiff wire, as well as the guidewire in place. One of these wires was secured to the drapes to serve as a safety wire. Next a balloon was advanced over the working wire into the left collecting system. The balloon was then inflated and left in place for about 1 minute. We then advanced the access sheath over the balloon and into the left collecting system. The balloon was then let down and removed leaving the access sheath and the working wire in place. Of note, the large 2 cm stone, as well as the additional two smaller stones were radio-opaque and could be seen on fluoroscopy. At this point, a nephroscope was advanced into the left collecting system and the large stone was seen, as well as the previously placed JJ ureteral stent. The stone was then fragmented into smaller pieces and suctioned out using a Cyberwand. I kept doing this until all of the stone fragments were removed. At this point, I withdrew the nephroscope a little bit and saw the two smaller stones. These stones were also fragmented into smaller pieces and suctioned out using the Cyberwand. At this point, on fluoroscopy, there were no visible stones seen and I could not see any additional stones inside the collecting system either using direct visualization. At this point, the nephroscope was withdrawn and the safety wire was removed. The access sheath was also removed. The working wire was then utilized to advance an 18-Djiboutian clark's point tip catheter over the wire and into the left collecting system. At this point, the balloon was inflated with about 2 to 3 mm of contrast and the wire was removed. An antegrade nephrostogram was negative for extravasation. Contrast drained all the way down from the left ureter. At this point, the nephrostomy catheter was connected to gravity drainage and it was secured to the skin using a #3-0 silk suture. Dressings were then applied. This marked conclusion of the procedure. The patient was then taken out of the prone position, awakened from anesthesia and transported to the recovery room in stable condition. ESTIMATED BLOOD LOSS: 50 mL. COMPLICATIONS: None. SPECIMENS: Kidney stone fragments. PLAN: The patient will be admitted to the hospital overnight. Assuming her labs are within normal limits and her pain is well controlled, she will likely be discharged home tomorrow. Prior to discharge, I will remove her nephrostomy catheter, as well as her Gutiérrez catheter. Her stent will be left in place for approximately 2 to 3 more weeks and that will be taken out in the clinic. DANNI
[2016-03-29] MEDS: oxyBUTYnin *DITROPAN XL* 5 MG TABCR PO SCH (14:22)
[2016-03-29] MEDS: NS 1,000 ML IV SCH ×3 (14:22→22:23)
[2016-03-29] MEDS: ATORVASTATIN 20 MG TAB PO SCH (14:22)
[2016-03-29] MEDS: LOSARTAN 25 MG TAB PO SCH (14:23)
[2016-03-29] MEDS: ceFAZolin SOD 1 GM in D5W MINI-BAG PLUS 50 ML IV SCH ×2 (14:24→22:23)
[2016-03-29] MEDS: CHLORTHALIDONE 25 MG TAB PO SCH (14:28)
[2016-03-29] MEDS: DOCUSATE SODIUM 100 MG CAP PO SCH (20:25)
[2016-03-29] MEDS ORDERED: SIMVASTATIN 20 MG TAB PO SCH (21:00)
[2016-03-30 00:30] VITALS: BP 113/58
[2016-03-30 06:00] VITALS: BP 116/60
[2016-03-30 07:35] LABS: MEAN CORPUSCULAR HEMOGLOBIN 29.4 pg (27.0-33.0); MEAN CORPUSCULAR HGB CONC 33.1 g/dl (32.0-36.5); MEAN CORPUSCULAR VOLUME 88.8 fl (80.0-96.0); WHITE BLOOD COUNT 6.2 K/mm3 (4.0-10.0)
[2016-03-30 07:46] LABS: ANION GAP 9 MEQ/L (8-16); BLOOD UREA NITROGEN 11 MG/DL (7-18); CALCIUM LEVEL 7.8 MG/DL (8.8-10.2); CARBON DIOXIDE LEVEL 25 MEQ/L (21-32); CHLORIDE LEVEL 112 MEQ/L (98-107); CREATININE FOR GFR 0.79 MG/DL (0.55-1.02); GLOMERULAR FILTRATION RATE > 60.0 (>39); GLUCOSE, FASTING 89 MG/DL (83-110); POTASSIUM SERUM 3.2 MEQ/L (3.5-5.1); SODIUM LEVEL 146 MEQ/L (136-145)
[2016-03-30] MEDS: NS 1,000 ML IV SCH (08:14)
[2016-03-30] MEDS: PERCOCET 5MG/325MG TAB PO PRN ×2 (08:15→12:38)
[2016-03-30] MEDS: oxyBUTYnin *DITROPAN XL* 5 MG TABCR PO SCH (08:16)
[2016-03-30] MEDS: DOCUSATE SODIUM 100 MG CAP PO SCH (08:16)
[2016-03-30] MEDS: CHLORTHALIDONE 25 MG TAB PO SCH (08:16)
[2016-03-30] MEDS: ATORVASTATIN 20 MG TAB PO SCH (08:16)
[2016-03-30 08:17] VITALS: BP 116/60
[2016-03-30] MEDS: LOSARTAN 25 MG TAB PO SCH (08:17)
[2016-03-30] MEDS ORDERED: SERTRALINE 100 MG TAB PO SCH (09:00)
[2016-03-30] MEDS ORDERED: OMEPRAZOLE 20 MG CAP PO SCH (09:00)
--- NOTE | 2016-03-30 09:08 | IPNPDOC ---
Assessment/Plan Date Seen The patient was seen on 03/30/16. Patient Summary This is a 80 y/o F, POD1 s/p left PCNL. She is doing well. Her nephrostomy catheter was removed this morning. Assuming her pyle catheter does not demonstrate an increase in bleeding, it will be removed as well and the patient can be discharged after she voids. Plan/VTE VTE Prophylaxis Ordered?: Yes VTE Exclusion Mechanical Proph: N/A:VTE Prophy Ordered Plan/Urinary Catheter Urinary Catheter: D/C Pyle Plan - d/c pyle catheter if hematuria does not increase - stop IVF - percocet prn pain - continue home meds - discharge home after the patient voids Subjective Review oF Systems Chief Complaint Left Kidney Stones Events since Last Encounter No acute events o/n. Pain well controlled. No n/v. No f/c/ns. Tolerating a regular diet. Objective Physical Examination General Exam: : Alert: Cooperative: No Acute Distress ABDOMEN EXAM: : BS Hypoactive: Mass: SoftNo: Tenderness Skin Exam: : Nl turgor and temperature Neuro Exam: : Normal Speech Psych Exam: : Mental status NL: Mood NL Other physical findings urethral catheter in place, draining light pink urine; left nephrostomy catheter in place, draining dark pink urine Vital Signs/I&O Vital Signs Date Time Temp Pulse Resp B/P Pulse Ox O2 Delivery O2 Flow Rate FiO2 03/30/16 08:17 116/60 03/30/16 08:15 20 03/30/16 06:00 98.4 73 91 Room Air 03/29/16 11:05 2.0 I&O- Last 24 Hours up to 6 AM 03/30/16 06:00 Intake Total 2775 ml Output Total 1625 ml Balance 1150 ml Laboratory Data Labs 24H Laboratory Tests 2 03/29/16 10:03: Anion Gap 8, Blood Urea Nitrogen 14, Creatinine 0.85, Sodium Level 146H, Potassium Level 3.5, Chloride Level 110H, Carbon Dioxide Level 28, Calcium Level 8.2L, Glomerular Filtration Rate > 60.0 03/30/16 06:52: Anion Gap 9, Blood Urea Nitrogen 11, Creatinine 0.79, Sodium Level 146H, Potassium Level 3.2L, Chloride Level 112H, Carbon Dioxide Level 25, Calcium Level 7.8L, Glomerular Filtration Rate > 60.0 CBC/BMP Laboratory Tests 03/29/16 10:03 Calcium Level 8.2 L, Red Blood Count 3.88 L, Mean Corpuscular Volume 87.0, Mean Corpuscular Hemoglobin 29.3, Mean Corpuscular Hemoglobin Concent 33.6, Red Cell Distribution Width 13.1 03/30/16 06:52 Calcium Level 7.8 L, Red Blood Count 3.29 L, Mean Corpuscular Volume 88.8, Mean Corpuscular Hemoglobin 29.4, Mean Corpuscular Hemoglobin Concent 33.1, Red Cell Distribution Width 13.0 SHALONDA MILLAN MD Mar 30, 2016 09:08
[2016-03-30 10:00] VITALS: BP 116/56
[2016-03-30] MEDS ORDERED: OXYC1TAB23 PO (13:24)
--- NOTE | 2016-03-31 09:54 | DSES ---
DATE OF ADMISSION: 03/29/2016 DATE OF DISCHARGE: 03/30/2016 ADMISSION DIAGNOSIS: Left kidney stones. DISCHARGE DIAGNOSIS: Left kidney stones. ADMITTING PHYSICIAN: Dr. Casimiro Jiang. DISCHARGE PHYSICIAN: Dr. Casimiro Jiang. PROCEDURE PERFORMED: Left percutaneous nephrolithotomy on 03/29/2016. HISTORY OF PRESENT ILLNESS: This is a 80-year-old female who was found to have a large left kidney stone as well as two smaller stones. She was admitted to the hospital after undergoing the above listed procedure to take care of her stones. HOSPITAL COURSE: The patient was admitted to the hospital after undergoing the above listed procedure. Her postoperative course was uncomplicated. On postoperative day one, her pain was well controlled with oral pain medications. Her blood work was within normal limits. She was tolerating a regular diet. She ambulated well without any difficulty. Her nephrostomy catheter was removed the morning of postoperative day one and later that day her Gutiérrez catheter was removed. She voided without any difficulty. She was therefore discharged home on postoperative day one in good condition with a plan for her to followup in the clinic in a few weeks for stent removal. DANNI
== END 2016-03-30 15:35 | disposition home or self-care (01) | DRG 661 ==
LOC: M OR 05:43 → M MS5PR 11:40
PROVIDERS: ADMIT Urology; ATTEND Urology
PROC: BT12ZZZ Fluoroscopy of Left Kidney (ICD-10-PCS; 2016-03-29)
PROC: 0TC13ZZ Extirpation of Matter from Left Kidney, Percutaneous Approach (ICD-10-PCS; principal; 2016-03-29 07:30)
DX: N20.0 Calculus of kidney (principal); I10 Essential (primary) hypertension

== ENCOUNTER → 2016-04-13 | Outpatient (CLI) | payer MEDICARE ==
--- NOTE | 2016-04-13 11:27 | REP ---
KUB, ONE VIEW: HISTORY: Kidney stone. A small amount of air is present in small and large intestine. There are no air-fluid levels or dilated loops of intestine. There is no pneumoperitoneum. A left ureteral stent is present. Surgical clips are present in the right upper quadrant. The patient is status post L4-5 anterior and posterior spinal fusion. IMPRESSION: Nonspecific bowel gas pattern. Signed by Cholo Pantoja MD 04/13/2016 11:30 A
== END ==
LOC: M SMT 10:46
PROVIDERS: ATTEND Urology
DX: N20.0 Calculus of kidney (principal); Z98.1 Arthrodesis status

== ENCOUNTER → 2016-09-02 | Outpatient (CLI) | payer MEDICARE ==
[~2016-09-02] MED LIST changes: -CALC600T10 PO; +CALC600T31 PO
[2016-09-02 10:48] LABS: BASO % 0.3 % (0.0-1.0); EOS # 0.2 K/mm3 (0.0-0.50); EOS % 3.6 % (0.0-3.0); LARGE UNSTAINED CELL # 0.1 K/mm3 (0.0-0.4); LARGE UNSTAINED CELL % 1.9 % (0.0-4.0); LYMPH % 17.6 % (24.0-44.0); MEAN CORPUSCULAR HEMOGLOBIN 29.6 pg (27.0-33.0); MEAN CORPUSCULAR HGB CONC 34.6 g/dl (32.0-36.5); MEAN CORPUSCULAR VOLUME 85.5 fl (80.0-96.0); MONO # 0.4 K/mm3 (0.0-0.8); MONO % 6.7 % (0.0-5.0); NEUTROPHILS # 3.7 K/mm3 (1.8-7.7); NEUTROPHILS % 69.9 % (36.0-66.0); PLATELET COUNT, AUTOMATED 198 k/mm3 (150-450); RED CELL DISTRIBUTION WIDTH 13.4 % (11.5-14.5); WHITE BLOOD COUNT 5.3 K/mm3 (4.0-10.0)
[2016-09-02 11:40] LABS: ALBUMIN 3.6 GM/DL (3.2-5.2); ALKALINE PHOSPHATASE 54 U/L (45-117); ALT/SGPT 19 U/L (12-78); ANION GAP 7 MEQ/L (8-16); AST/SGOT 20 U/L (15-37); BILIRUBIN,TOTAL 0.7 MG/DL (0.2-1.0); BLOOD UREA NITROGEN 22 MG/DL (7-18); CARBON DIOXIDE LEVEL 31 MEQ/L (21-32); CHLORIDE LEVEL 107 MEQ/L (98-107); CHOLESTEROL LEVEL 168 MG/DL (<200); CREATININE FOR GFR 0.85 MG/DL (0.55-1.02); GLOMERULAR FILTRATION RATE > 60.0 (>39); GLUCOSE, FASTING 87 MG/DL (83-110); POTASSIUM SERUM 3.4 MEQ/L (3.5-5.1); SODIUM LEVEL 145 MEQ/L (136-145); TOTAL PROTEIN 6.6 GM/DL (6.4-8.2); TRIGLYCERIDES LEVEL 141 MG/DL (<150)
== END ==
LOC: M LAB 09:37
PROVIDERS: ATTEND Emergency Medicine
DX: I10 Essential (primary) hypertension (principal); E55.9 Vitamin D deficiency, unspecified; N20.0 Calculus of kidney; E78.2 Mixed hyperlipidemia

== ENCOUNTER → 2016-10-21 | Outpatient (CLI) | payer MEDICARE ==
--- NOTE | 2016-10-21 12:19 | REP ---
Clinical: Nephrolithiasis. Comparison: 04/13/2016. Findings: Previously noted left ureteral stent has been removed. Calcifications adjacent to the left iliac wing with in the pelvis remains stable and most compatible with phleboliths. Evaluation for urinary tract calcifications is limited due to technique and overlying bowel gas. Moderate fecal stasis cannot be excluded. Skeletal structures demonstrate stable degenerative and postsurgical changes. Impression: No obvious urinary tract calcifications are identified although evaluation is limited. As above. Signed by Sameer Fountain MD 10/21/2016 12:11 P
== END ==
LOC: M SMT 11:32
PROVIDERS: ATTEND Urology
DX: N20.0 Calculus of kidney (principal)
CPT/HCPCS: 74000; G0463

== ENCOUNTER → 2017-03-15 | Outpatient (CLI) | payer MEDICARE ==
[2017-03-15 11:36] LABS: BASO % 0.3 % (0.0-1.0); EOS # 0.1 10^3/uL (0.0-0.50); EOS % 1.2 % (0.0-3.0); HEMATOCRIT 37.2 % (36.0-47.0); HEMOGLOBIN 12.4 g/dl (12.0-16.0); IMMATURE GRANULOCYTE % 0.3 % (0-0); LYMPH # 1.3 10^3/uL (1.5-4.5); LYMPH % 18.7 % (24.0-44.0); MEAN CORPUSCULAR HEMOGLOBIN 28.5 pg (27.0-33.0); MEAN CORPUSCULAR HGB CONC 33.3 g/dl (32.0-36.5); MEAN CORPUSCULAR VOLUME 85.5 fl (80.0-96.0); MONO # 0.6 10^3/uL (0.0-0.8); MONO % 8.1 % (0.0-5.0); NEUTROPHILS # 4.9 10^3/uL (1.8-7.7); NEUTROPHILS % 71.4 % (36.0-66.0); PLATELET COUNT, AUTOMATED 234 10^3/uL (150-450); RED BLOOD COUNT 4.35 10^6/uL (4.00-5.40); RED CELL DISTRIBUTION WIDTH 12.7 % (11.5-14.5); WHITE BLOOD COUNT 6.8 10^3/uL (4.0-10.0)
[2017-03-15 12:16] LABS: ALBUMIN 3.8 GM/DL (3.2-5.2); ALBUMIN/GLOBULIN RATIO 1.19 (1.00-1.93); ALKALINE PHOSPHATASE 52 U/L (45-117); ALT/SGPT 16 U/L (12-78); ANION GAP 6 MEQ/L (8-16); AST/SGOT 20 U/L (7-37); BILIRUBIN,TOTAL 0.8 MG/DL (0.2-1.0); BLOOD UREA NITROGEN 16 MG/DL (7-18); CALCIUM LEVEL 9.8 MG/DL (8.8-10.2); CARBON DIOXIDE LEVEL 31 MEQ/L (21-32); CHLORIDE LEVEL 107 MEQ/L (98-107); CHOLESTEROL LEVEL 180 MG/DL (<200); CHOLESTEROL RISK RATIO 2.432 (<5); CREATININE FOR GFR 0.81 MG/DL (0.55-1.30); GLOMERULAR FILTRATION RATE > 60.0 (>39); GLUCOSE, FASTING 89 MG/DL (70-100); HDL CHOLESTEROL 74 MG/DL (>40); LDL CHOLESTEROL 87.2 MG/DL (<100); NON-HDL-C 106 MG/DL; POTASSIUM SERUM 3.2 MEQ/L (3.5-5.1); SODIUM LEVEL 144 MEQ/L (136-145); TRIGLYCERIDES LEVEL 94 MG/DL (<150)
[2017-03-15 12:18] LABS: TOTAL 25(OH) VITAMIN D 35.4 NG/ML (30.0-100.0)
== END ==
LOC: M LAB 11:05
DX: I10 Essential (primary) hypertension (principal); E78.2 Mixed hyperlipidemia; E55.9 Vitamin D deficiency, unspecified; N20.0 Calculus of kidney
CPT/HCPCS: 80053

== ENCOUNTER 2017-04-28 16:30 | Emergency (ER) | payer MEDICARE ==
[2017-04-28 18:43] LABS: BASO % 0.1 % (0.0-1.0); EOS % 0.2 % (0.0-3.0); HEMATOCRIT 39.1 % (36.0-47.0); HEMOGLOBIN 13.3 g/dl (12.0-16.0); IMMATURE GRANULOCYTE % 0.3 % (0-3.0); LYMPH # 0.8 10^3/uL (1.5-4.5); LYMPH % 8.3 % (24.0-44.0); MEAN CORPUSCULAR VOLUME 85.2 fl (80.0-96.0); MONO # 0.6 10^3/uL (0.0-0.8); MONO % 6.8 % (0.0-5.0); NEUTROPHILS # 7.9 10^3/uL (1.8-7.7); NEUTROPHILS % 84.3 % (36.0-66.0); PLATELET COUNT, AUTOMATED 239 10^3/uL (150-450); RED BLOOD COUNT 4.59 10^6/uL (4.00-5.40); RED CELL DISTRIBUTION WIDTH 12.5 % (11.5-14.5); WHITE BLOOD COUNT 9.4 10^3/uL (4.0-10.0)
[2017-04-28 18:56] LABS: INR 0.99; PROTHROMBIN TIME 13.1 SECONDS (12.4-14.5)
[2017-04-28 18:58] LABS: ALBUMIN 3.9 GM/DL (3.2-5.2); ALBUMIN/GLOBULIN RATIO 1.22 (1.00-1.93); ALKALINE PHOSPHATASE 54 U/L (45-117); ALT/SGPT 19 U/L (12-78); ANION GAP 7 MEQ/L (8-16); AST/SGOT 19 U/L (7-37); BILIRUBIN,DIRECT 0.2 MG/DL (0.0-0.2); BILIRUBIN,TOTAL 0.5 MG/DL (0.2-1.0); BLOOD UREA NITROGEN 24 MG/DL (7-18); CALCIUM LEVEL 9.1 MG/DL (8.8-10.2); CARBON DIOXIDE LEVEL 28 MEQ/L (21-32); CHLORIDE LEVEL 106 MEQ/L (98-107); CPK CREATINE PHOSPHOKINASE 124 U/L (26-192); CREATININE FOR GFR 0.88 MG/DL (0.55-1.30); GLOMERULAR FILTRATION RATE > 60.0 (>39); GLUCOSE, FASTING 94 MG/DL (70-100); LIPASE 240 U/L (73-393); MB/CK RELATIVE INDEX 1.61 (< OR =4); POTASSIUM SERUM 3.1 MEQ/L (3.5-5.1); SODIUM LEVEL 141 MEQ/L (136-145); TOTAL PROTEIN 7.1 GM/DL (6.4-8.2); TROPONIN I < 0.02 NG/ML (< 0.10)
[2017-04-28] MEDS: ONDANSETRON 4MG/2ML VIAL (J2405) IV (19:00)
[2017-04-28] MEDS: NS 1,000 ML IV (19:00)
[2017-04-28 20:08] LABS: LACTIC ACID SEPSIS PROTOCOL 1.2 MMOL/L (0.4-2.0)
[2017-04-28] MEDS: POTASSIUM CHLORIDE 10 MEQ SR TABLET PO (20:15)
== END 2017-04-28 22:16 | disposition home or self-care (01) ==
LOC: M ED 16:30
DX: R11.2 Nausea with vomiting, unspecified (principal); I51.9 Heart disease, unspecified; I10 Essential (primary) hypertension; K21.9 Gastro-esophageal reflux disease without esophagitis; F17.200 Nicotine dependence, unspecified, uncomplicated; Z79.899 Other long term (current) drug therapy; Z88.5 Allergy status to narcotic agent; Z91.89 Other specified personal risk factors, not elsewhere classified; Z88.1 Allergy status to other antibiotic agents; Z88.8 Allergy status to other drugs, medicaments and biological substances; Z91.018 Allergy to other foods
CPT/HCPCS: J2405

== ENCOUNTER → 2017-09-12 | Outpatient (CLI) | payer MEDICARE ==
[2017-09-12 09:50] LABS: BASO % 0.2 % (0.0-1.0); EOS # 0.2 10^3/uL (0.0-0.50); EOS % 2.6 % (0.0-3.0); HEMATOCRIT 34.9 % (36.0-47.0); HEMOGLOBIN 11.4 g/dl (12.0-15.5); IMMATURE GRANULOCYTE % 0.5 % (0-3.0); LYMPH % 17.5 % (24.0-44.0); MEAN CORPUSCULAR HEMOGLOBIN 28.7 pg (27.0-33.0); MEAN CORPUSCULAR HGB CONC 32.7 g/dl (32.0-36.5); MEAN CORPUSCULAR VOLUME 87.9 fl (80.0-96.0); MONO # 0.4 10^3/uL (0.0-0.8); MONO % 6.2 % (0.0-5.0); NEUTROPHILS # 4.2 10^3/uL (1.8-7.7); PLATELET COUNT, AUTOMATED 170 10^3/uL (150-450); RED BLOOD COUNT 3.97 10^6/uL (4.00-5.40); RED CELL DISTRIBUTION WIDTH 12.8 % (11.5-14.5); WHITE BLOOD COUNT 5.8 10^3/uL (4.0-10.0)
[2017-09-12 10:15] LABS: ALBUMIN 3.4 GM/DL (3.2-5.2); ALBUMIN/GLOBULIN RATIO 1.17 (1.00-1.93); ALKALINE PHOSPHATASE 51 U/L (45-117); ALT/SGPT 20 U/L (12-78); ANION GAP 7 MEQ/L (8-16); AST/SGOT 19 U/L (7-37); BILIRUBIN,TOTAL 0.4 MG/DL (0.2-1.0); BLOOD UREA NITROGEN 20 MG/DL (7-18); CALCIUM LEVEL 8.5 MG/DL (8.8-10.2); CARBON DIOXIDE LEVEL 30 MEQ/L (21-32); CHLORIDE LEVEL 110 MEQ/L (98-107); CHOLESTEROL LEVEL 156 MG/DL (<200); CHOLESTEROL RISK RATIO 2.557 (<5); CREATININE FOR GFR 0.82 MG/DL (0.55-1.30); GLOMERULAR FILTRATION RATE > 60.0 (>39); GLUCOSE, FASTING 87 MG/DL (70-100); HDL CHOLESTEROL 61 MG/DL (>40); LDL CHOLESTEROL 66.4 MG/DL (<100); NON-HDL-C 95 MG/DL; POTASSIUM SERUM 3.8 MEQ/L (3.5-5.1); SODIUM LEVEL 147 MEQ/L (136-145); TOTAL PROTEIN 6.3 GM/DL (6.4-8.2); TRIGLYCERIDES LEVEL 143 MG/DL (<150)
[2017-09-12 10:18] LABS: TOTAL 25(OH) VITAMIN D 39.3 NG/ML (30.0-100.0)
== END ==
LOC: M LAB 09:28
DX: I10 Essential (primary) hypertension (principal); E78.2 Mixed hyperlipidemia; E55.9 Vitamin D deficiency, unspecified; N20.0 Calculus of kidney
CPT/HCPCS: 80053

== ENCOUNTER → 2018-09-12 | Outpatient (CLI) | payer MEDICARE ==
[~2018-09-12] MED LIST changes: -/ESOM40CA; +E-Z-GAS II EFFERVESCENT PACKET (SODIUM BICARB./CITRIC ACID/SIMETHICONE) As Ordered ONE; +E-Z-HD 98% w/w 340GM SUSP BTL As Ordered ONE; +E-Z-PAQUE 96% w/w SUSP 176GM BTL As Ordered ONE; +KLOR10TA76 PO; +LOSA25TA14 PO; -LOSA25TA8 PO; +MAGN500T2 PO; +NEXI1CAP3; -POTA10CA PO; +ZOFR4TAB14 PO
--- NOTE | 2018-09-12 16:56 | REP ---
Esophagram The procedure was performed under the direct supervision of Dr. Christie. The images were reviewed with Dr. Christie. A single view PA chest x-ray is submitted as a inspector integrated circuits film. The superior mediastinal structures are midline. The heart size is within normal limits. The lungs are clear. Liquid barium and gas producing granules were given in the erect position as well as liquid barium in the prone oblique positions in order to perform a double contrast esophagram examination. The oral and pharyngeal stages of deglutition are unremarkable. 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 There is a small Zenker's diverticulum identified. During esophageal transport there are tertiary waves. There is a large fixed hiatal hernia. There is gastroesophageal reflux demonstrated to the level of the thoracic inlet. Impression: 1. 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 2. There is a small Zenker's diverticulum identified. 3. Tertiary waves. 4. There is a large fixed hiatal hernia. There is gastroesophageal reflux demonstrated to the level of the thoracic inlet. 0.7 minutes of fluoro time was utilized for this procedure. Reviewed by ELISE Gomez 09/12/2018 04:43 P Electronically Signed by Donald Christie MD 09/12/2018 04:47 P
== END ==
LOC: M RAD 09:38
PROVIDERS: ATTEND Internal Medicine Gastroenterology
DX: R13.10 Dysphagia, unspecified (principal)

== ENCOUNTER → 2018-09-28 | Outpatient (CLI) | payer MEDICARE ==
[~2018-09-28] MED LIST changes: +DULO1CAP4 PO; -E-Z-GAS II EFFERVESCENT PACKET (SODIUM BICARB./CITRIC ACID/SIMETHICONE) As Ordered ONE; -E-Z-HD 98% w/w 340GM SUSP BTL As Ordered ONE; -E-Z-PAQUE 96% w/w SUSP 176GM BTL As Ordered ONE; +LEG CRAMPS PO; +MEMA1TAB PO; -OXYB10TA PO; +OXYB10TA2 PO; +QC A650T3 PO; +TRAZ-252 PO
--- NOTE | 2018-09-28 14:03 | REP ---
Gastric emptying nuclear scintigraphy: History: Gastroparesis. Technique: 1.1 mCi of technetium-99m sulfur colloid was ingested in two scrambled eggs and 6 ounces of water and sequential anterior and posterior images are acquired for an 89-minute imaging observation period. Regions of interest are drawn around the stomach to plot gastric emptying. Scintigraphic findings: Expected T1/2 is 90 minutes. One % emptying is observed in this patient during the 89-minute imaging observation period, for a calculated T1/2 in this patient of 3972 minutes. Impression: Evidence of markedly delayed gastric emptying. Electronically Signed by Cabrera Ramos MD 09/28/2018 01:55 P
== END ==
LOC: M RAD 10:23
PROVIDERS: ATTEND Internal Medicine Gastroenterology
DX: K31.84 Gastroparesis (principal); R14.2 Eructation; K21.9 Gastro-esophageal reflux disease without esophagitis; K30 Functional dyspepsia
CPT/HCPCS: 78264; A9541

== ENCOUNTER 2018-10-19 11:59 | Day surgery (SDC) | payer MEDICARE ==
[~2018-10-19] VITALS: Ht 167.6 cm; Wt 69.3 kg
[~2018-10-19 11:59] MED LIST changes: +NS 1,000 ML IV ONE
[2018-10-19] MEDS ORDERED: LIDOCAINE 2% INJ 100 MG/5 ML SDV (FOR ANES.) As Ordered ONE (13:11)
[2018-10-19] MEDS ORDERED: PROPOFOL 200 MG/20 ML VIAL As Ordered ONE (13:11)
--- NOTE | 2018-10-19 14:43 | ROOR ---
Patient Name: Clarissa Witt Procedure Date: 10/19/2018 2:24 PM Date of : 1935 Age: 82 Room: [facility] Gender: Female Note Status: Finalized Procedure: Upper GI endoscopy Indications: Dysphagia, Heartburn, Gastroparesis, Early satiety, Eructation Providers: Cristhian MELGAR MD Referring MD: BARRON Eldridge Requesting Provider: Medicines: Monitored Anesthesia Care Complications: No immediate complications. Procedure: Pre-Anesthesia Assessment: - The heart rate, respiratory rate, oxygen saturations, blood pressure, adequacy of pulmonary ventilation, and response to care were monitored throughout the procedure. The Endoscope was introduced through the mouth, and advanced to the second part of duodenum. The upper GI endoscopy was accomplished without difficulty. The patient tolerated the procedure well. Findings: A large hiatal hernia was present. The entire examined stomach was normal. The examined esophagus was normal. The examined duodenum was normal. Impression: - Moderate to large hiatal hernia. - Normal stomach. - Normal esophagus. - Normal examined duodenum. - No specimens collected. Recommendation: - Use Prilosec (omeprazole) 20 mg PO BID. - Gastroparesis diet: - Eat smaller, more frequent meals throughout the day. - Low fat diet. - Liquid/soft foods are tolerated better than solid foods. - Low fiber/well cooked vegetables are tolerated better than high fiber/fibrous foods/raw vegetables. - Avoid medications that inhibit gastric/intestinal motility such as narcotic medications. Cristhian Melgar MD Cristhian MELGAR MD 10/19/2018 2:43:50 PM Electronically signed by Cristhian MELGAR MD Number of Addenda: 0 Note Initiated On: 10/19/2018 2:24 PM Estimated Blood Loss: Estimated blood loss: none.
[2018-10-19 15:16] VITALS: BP 159/86
== END 2018-10-19 15:17 | disposition home or self-care (01) ==
LOC: M OPP 11:59
PROVIDERS: ATTEND Internal Medicine Gastroenterology
DX: K44.9 Diaphragmatic hernia without obstruction or gangrene (principal); R13.10 Dysphagia, unspecified; R12 Heartburn; K31.84 Gastroparesis; R68.81 Early satiety; R14.2 Eructation; Z79.899 Other long term (current) drug therapy; Z88.1 Allergy status to other antibiotic agents; Z88.5 Allergy status to narcotic agent; Z91.048 Other nonmedicinal substance allergy status; Z91.018 Allergy to other foods; Z91.040 Latex allergy status

== ENCOUNTER → 2018-11-20 | Outpatient (CLI) | payer MEDICARE ==
[~2018-11-20] MED LIST changes: +MEMA1TAB2 PO; -NS 1,000 ML IV ONE; +POTA10CA32 PO
[2018-11-20 12:02] LABS: BASO % 0.5 % (0.0-1.0); EOS # 0.1 10^3/uL (0.0-0.5); EOS % 2.4 % (0.0-3.0); HEMATOCRIT 36.1 % (36.0-47.0); HEMOGLOBIN 11.7 g/dl (12.0-15.5); LYMPH # 0.9 10^3/uL (1.5-5.0); LYMPH % 21.5 % (24.0-44.0); MEAN CORPUSCULAR HEMOGLOBIN 30.1 pg (27.0-33.0); MEAN CORPUSCULAR HGB CONC 32.4 g/dl (32.0-36.5); MEAN CORPUSCULAR VOLUME 92.8 fl (80.0-96.0); MONO # 0.4 10^3/uL (0.0-0.8); MONO % 9.3 % (0.0-5.0); NEUTROPHILS # 2.8 10^3/uL (1.5-8.5); NEUTROPHILS % 66.1 % (36.0-66.0); PLATELET COUNT, AUTOMATED 194 10^3/uL (150-450); RED BLOOD COUNT 3.89 10^6/uL (4.00-5.40); WHITE BLOOD COUNT 4.2 10^3/uL (4.0-10.0)
[2018-11-20 12:23] LABS: ALBUMIN 3.5 GM/DL (3.2-5.2); BILIRUBIN,TOTAL 0.5 MG/DL (0.2-1.0); CALCIUM LEVEL 9.4 MG/DL (8.8-10.2); CHOLESTEROL RISK RATIO 2.07 (<5); CREATININE FOR GFR 0.96 MG/DL (0.55-1.30); GLOMERULAR FILTRATION RATE 59.5 (>32); TOTAL PROTEIN 6.3 GM/DL (6.4-8.2)
== END ==
LOC: M LAB 10:55
PROVIDERS: ATTEND Family Medicine
DX: I10 Essential (primary) hypertension (principal)

== ENCOUNTER 2018-11-29 06:31 | Day surgery (SDC) | payer MEDICARE ==
[~2018-11-29] VITALS: Ht 165.1 cm; Wt 67.9 kg
[~2018-11-29 06:31] MED LIST changes: -OMEP40CA2 PO; +OMEP40CA97 PO
[2018-11-29] MEDS ORDERED: ceFAZolin SOD 2 GM in IV 1 EA IV ONE (07:00)
[2018-11-29] MEDS ORDERED: LR 1,000 ML IV ONE (07:00)
[2018-11-29] MEDS ORDERED: MIDAZOLAM INJ 2 MG/2 ML VIAL (J2250) As Ordered ONE ×2 (07:39→08:07)
[2018-11-29] MEDS ORDERED: fentaNYL 100 MCG/2 ML INJECTION (J3010) As Ordered ONE ×2 (07:39→08:07)
[2018-11-29] MEDS ORDERED: BUPIVACAINE HCL 0.25% 30 ML VIAL As Ordered ONE (07:42)
[2018-11-29] MEDS ORDERED: PROPOFOL 200 MG/20 ML VIAL As Ordered ONE (08:06)
[2018-11-29] MEDS ORDERED: ROCURONIUM BROMIDE 50 MG/5 ML VIAL As Ordered ONE (08:06)
[2018-11-29] MEDS ORDERED: LIDOCAINE 2% INJ 100 MG/5 ML SDV (FOR ANES.) As Ordered ONE (08:06)
[2018-11-29] MEDS ORDERED: dexameTHASONE 4 MG/ML 1ML VIAL (J1100) As Ordered ONE (08:07)
[2018-11-29] MEDS ORDERED: ONDANSETRON 4MG/2ML VIAL (J2405) As Ordered ONE (08:07)
[2018-11-29] MEDS ORDERED: BUPIVACAINE/EPIN 0.25% 30 ML VIAL As Ordered ONE (08:43)
[2018-11-29] MEDS ORDERED: MIDAZOLAM INJ 2 MG/2 ML VIAL (J2250) IV ONE (08:45)
[2018-11-29] MEDS ORDERED: fentaNYL 100 MCG/2 ML INJECTION (J3010) IV ONE (08:45)
[2018-11-29] MEDS ORDERED: SUGAMMADEX SODIUM 500 MG/5 ML VIAL (BRIDION) As Ordered ONE (10:32)
[2018-11-29] MEDS ORDERED: KETOROLAC 60 MG/2 ML VIAL (J1885) As Ordered ONE (10:32)
[2018-11-29] MEDS ORDERED: fentaNYL 100 MCG/2 ML INJECTION (J3010) IV PRN (11:00)
[2018-11-29] MEDS ORDERED: ONDANSETRON 4MG/2ML VIAL (J2405) IV PRN (11:00)
[2018-11-29] MEDS ORDERED: LR 1,000 ML IV SCH (11:00)
[2018-11-29] MEDS ORDERED: oxyCODONE 5MG TAB PO PRN ×3 (11:00→12:00)
[2018-11-29] MEDS ORDERED: METOCLOPRAMIDE INJ 10MG/2ML VIAL (J2765) IV PRN (11:00)
--- NOTE | 2018-11-29 11:31 | REP ---
Right wrist: 31 views. History: Intraoperative imaging. Correction osteotomy distal radius. 1 minute 10 seconds of fluoroscopy time is reported. Findings: A sequence of 31 last image hold fluoroscopically obtained spot radiographs of the right wrist document operative manipulation and fixation. Electronically Signed by Cabrera Ramos MD 11/29/2018 01:46 P
[2018-11-29] MEDS ORDERED: MORPHINE 4 MG/ML 1ML VIAL/SYRINGE (J2270) IV PRN (12:00)
[2018-11-29 14:05] VITALS: BP 115/55
--- NOTE | 2018-11-29 20:02 | RO ---
DATE OF PROCEDURE: 11/29/2018 PREPROCEDURE DIAGNOSES: Right carpal and cubital tunnel syndrome, along with distal radius malunion. POSTPROCEDURE DIAGNOSES: Right carpal and cubital tunnel syndrome, along with distal radius malunion. OPERATIVE PROCEDURES: 1. Right open cubital tunnel release. 2. Right open carpal tunnel release. 3. Right distal radius osteotomy. 4. Right distal radius malunion correction with open reduction, internal fixation (ORIF) of extraarticular fracture. INDICATIONS: This is a pleasant 82-year-old female who suffered bilateral distal radius fractures. Since that time she has had numbness and tingling in all five digits that has failed nonoperative management, along with increased wrist soreness, likely due to the severe dorsal angulation of her wrist. The risks and benefits were discussed, including, but not limited to infection, damage to surrounding structures, nonunion, malunion. The patient expressed understanding and agreed with the plan. SURGEON: Gabriel Gregorio MD PRESS FEEDER: BARRON Grande, who was essential during portions of the procedure. PREOPERATIVE ANTIBIOTICS: 2 grams of Ancef. BLOOD LOSS: 20 mL. COMPLICATIONS: None. SPECIMENS: None. DESCRIPTION OF PROCEDURE: The patient was brought back to the operating room and laid supine position. Underwent general anesthesia, at which point the patient's right arm was prepped and draped in the usual fashion. A time out occurred verifying site, side and surgery. We then, once all in agreement, we made a longitudinal incision between the medial epicondyle and the olecranon. Starting with the cubital tunnel release. We sharply dissected through the tissue. Identified the antebrachial medial continuous branch and preserved it. We identified the ulnar nerve on the anterior aspect of the triceps. We then raised it distally through Aldridge ligament, including even further distal through the superficial and deep fascia of the FCU. I also released proximally from the intermusculare septum. The amount of traction placed upon the nerve and adhesions, we freed up the ulna nerve and transposed it anteriorly and closed Aldridge ligament behind it with 3-0 Prolene. We were very happy with the plane of the ulnar nerve. After this, we ranged the elbow, did not appear to be any type of compression. We then irrigated the wound thoroughly and closed it with 3-0 Vicryl and 3-0 Monocryl with Mastisol and Steri-Strips. We then turned our attention to the wrist. We made a longitudinal incision with Juarez line and the fourth digit, continuing proximally and angling across the distal and proximal wrist crease and then along the modified Barry approach, along FCR. We then sharply dissected through subcutaneous tissue over the distal aspect, identifying the palmar fascia and the transverse carpal ligament. We sharply opened up the transverse carpal ligament, identifying the median nerve. Once this was adequately decompressed, we followed it proximally, the incision over FCR tendon. We opened up the superficial sheath, retracted the FCR radially, and then opened up a distal portion of the sheath, more deep portion. We then retracted FDL ulnarly, exposing pronator quadratus. We then elevated the pronator quadratus. We identified the malunion, at which point we took a three-holed, variable angle Synthes distal radius plate, and pinned it to the distal radius. We identified appropriate placement of the plate on AP and lateral films, making sure that we were not entering into the joint. Once we were happy with this, we then fixed it with four distal locking screws, at which point we then did an osteotomy in the metaphyseal region, making sure to free it up adequately on the dorsal aspect of the arm. Once this was done, we were able to use a lobster claw to reduce the distal radius using indirect reduction through the plate to the proximal shaft. This created a large gap posteriorly, but we were able to decompression. We then loaded the plate in compression with cortical screws in the first two spots. Once this was done, we then placed the locking screw in the most proximal hole and then replaced the most distal shaft screw with a locking screw as well. We confirmed adequate reduction in AP and lateral. I am very happy with this placement of the distal radius in a much more natural volar tilt and radial inclination. We then filled the defect on the back with demineralized bone matrix. We were very happy with how it filled the void. We then irrigated the wound thoroughly and closed the pronator quadratus with 3-0 Vicryl, along with the subcutaneous tissue with 3-0 Vicryl. We then used a running 3-0 Monocryl through the open carpal tunnel and distal radius incision. Once this was completed, we covered with Mastisol and Steris, gauze, and splinted the distal radius with a volar splint of plaster. We then covered with Torin. The patient's tourniquet was then let down at 85 minutes and taken stable to postanesthesia care unit (PACU). POSTOPERATIVE PLAN: The patient will work on pain control. She will see us in the office in 2 weeks, at that point, we will check the incisions. These are absorbable sutures so will not require removal. At which point, we will convert her over to removable brace, which she should wear most of the time for the next 4 weeks, but take it off for hygiene and wrist exercises.
== END 2018-11-29 14:52 | disposition home or self-care (01) ==
LOC: M SDC 06:31
PROVIDERS: ATTEND Orthopaedic Surgery Hand Surgery
DX: S52.552P Other extraarticular fracture of lower end of left radius, subsequent encounter for closed fracture with malunion (principal); G56.21 Lesion of ulnar nerve, right upper limb; G56.01 Carpal tunnel syndrome, right upper limb; I10 Essential (primary) hypertension; E78.00 Pure hypercholesterolemia, unspecified; K44.9 Diaphragmatic hernia without obstruction or gangrene; R13.10 Dysphagia, unspecified; M12.9 Arthropathy, unspecified; M54.5 Low back pain; M32.9 Systemic lupus erythematosus, unspecified; F41.9 Anxiety disorder, unspecified; G30.9 Alzheimer's disease, unspecified; F32.9 Major depressive disorder, single episode, unspecified; G44.009 Cluster headache syndrome, unspecified, not intractable; Z88.1 Allergy status to other antibiotic agents; Z88.8 Allergy status to other drugs, medicaments and biological substances; Z79.899 Other long term (current) drug therapy; Z91.018 Allergy to other foods; Z91.040 Latex allergy status; Z91.048 Other nonmedicinal substance allergy status; Z90.710 Acquired absence of both cervix and uterus; Z96.1 Presence of intraocular lens; Z98.41 Cataract extraction status, right eye; Z98.42 Cataract extraction status, left eye; Z87.891 Personal history of nicotine dependence; Z87.442 Personal history of urinary calculi; X58.XXXA Exposure to other specified factors, initial encounter; Y93.9 Activity, unspecified; Y92.9 Unspecified place or not applicable; Y99.9 Unspecified external cause status
CPT/HCPCS: 25607; 36415; 64718; 64721; 76000; 86850; 86900; 86901; C1713; C1762; J0690; J1100; J1885; J2250; J2405; J3010

== ENCOUNTER 2019-10-24 14:14 | Emergency (ER) | payer MEDICARE ==
[~2019-10-24] VITALS: Ht 167.6 cm; Wt 72.7 kg
[~2019-10-24 14:14] MED LIST changes: +MEMA10TA19 PO; -MEMA1TAB PO; -MEMA1TAB2 PO; +MEMA1TAB3 PO; -OXYB10TA2 PO; +OXYB10TA23 PO; -SIMV20TA2 PO; +SIMV20TA22 PO
[2019-10-24] MEDS ORDERED: PERCOCET 5MG/325MG TAB PO ONE (14:45)
--- NOTE | 2019-10-24 15:24 | REPVR ---
PROCEDURE INFORMATION: Exam: US Duplex Left Lower Extremity Veins, Limited Exam date and time: 10/24/2019 3:09 PM Age: 83 years old Clinical indication: Pain; Leg, lower; Left; Additional info: Lle pain; ? Trauma TECHNIQUE: Imaging protocol: Real-time Duplex ultrasound of the Left Lower Extremity with 2-D caraballo scale, color Doppler flow and spectral waveform analysis with image documentation. Limited exam focused on the left lower extremity veins. COMPARISON: No relevant prior studies available. FINDINGS: Left deep veins: Unremarkable. The common femoral, femoral and popliteal veins are patent without thrombus. Normal Doppler waveforms. Normal compressibility and/or augmentation response. Left superficial veins: Unremarkable. Saphenofemoral junction is patent without thrombus. Soft tissues: Unremarkable. IMPRESSION: No evidence of deep vein thrombosis in the left lower extremity. Electronically signed by: Yeison Rodriguez On 10/24/2019 15:24:39 PM
[2019-10-24 15:38] LABS: BASO % 0.3 % (0.0-1.0); EOS % 0.6 % (0.0-3.0); HEMATOCRIT 36.6 % (36.0-47.0); HEMOGLOBIN 12.4 g/dl (12.0-15.5); LYMPH # 0.8 10^3/uL (1.5-5.0); MEAN CORPUSCULAR HEMOGLOBIN 30.7 pg (27.0-33.0); MEAN CORPUSCULAR HGB CONC 33.9 g/dl (32.0-36.5); MEAN CORPUSCULAR VOLUME 90.6 fl (80.0-96.0); MONO # 0.5 10^3/uL (0.0-0.8); MONO % 7.3 % (0.0-5.0); NEUTROPHILS # 5.2 10^3/uL (1.5-8.5); NEUTROPHILS % 79.2 % (36.0-66.0); PLATELET COUNT, AUTOMATED 199 10^3/uL (150-450); RED BLOOD COUNT 4.04 10^6/uL (4.00-5.40); WHITE BLOOD COUNT 6.6 10^3/uL (4.0-10.0)
[2019-10-24 15:46] LABS: INR 0.96; PROTHROMBIN TIME 12.9 SECONDS (11.8-14.0)
[2019-10-24 15:47] LABS: PARTIAL THROMBOPLASTIN TIME 23.7 SECONDS (25.0-38.4)
[2019-10-24 16:02] LABS: BLOOD UREA NITROGEN 15 MG/DL (7-18); CALCIUM LEVEL 8.9 MG/DL (8.8-10.2); CARBON DIOXIDE LEVEL 26 MEQ/L (21-32); CHLORIDE LEVEL 110 MEQ/L (98-107); CREATININE FOR GFR 0.86 MG/DL (0.55-1.30); GLOMERULAR FILTRATION RATE > 60.0 (>32); GLUCOSE, FASTING 108 MG/DL (70-100); POTASSIUM SERUM 3.8 MEQ/L (3.5-5.1); SODIUM LEVEL 140 MEQ/L (136-145)
--- NOTE | 2019-10-24 16:22 | REPVR ---
PROCEDURE INFORMATION: Exam: XR Left Knee Exam date and time: 10/24/2019 3:56 PM Age: 83 years old Clinical indication: Pain; Knee; Left; Additional info: Left knee/lle pain; ? Injury TECHNIQUE: Imaging protocol: XR Left knee. Views: 4 or more views. COMPARISON: CR Tibia, Fibula lower leg LEFT 10/24/2019 3:34 PM FINDINGS: Bones/joints: Chronic degenerative joint disease is seen in the left knee joint with moderate subchondral sclerosis in the medial and lateral tibial plateau areas. No acute fractures. No definite knee joint effusion seen although the study is somewhat limited by the angulation of the lateral radiograph. Soft tissues: Normal. IMPRESSION: 1. Chronic degenerative joint disease is seen in the left knee joint with moderate subchondral sclerosis in the medial and lateral tibial plateau areas. 2. No acute fractures. 3. No definite knee joint effusion seen although the study is somewhat limited by the angulation of the lateral radiograph. Electronically signed by: Yeison Rodriguez On 10/24/2019 16:22:21 PM
--- NOTE | 2019-10-24 16:26 | REPVR ---
PROCEDURE INFORMATION: Exam: XR Left Tibia and Fibula Exam date and time: 10/24/2019 3:56 PM Age: 83 years old Clinical indication: Pain; Lower leg; Left; Additional info: Left knee/lle pain; ? Injury TECHNIQUE: Imaging protocol: XR Left tibia and fibula. Views: 2 views. COMPARISON: No relevant prior studies available. FINDINGS: Bones/joints: No acute fractures seen in the left tibia or fibula. Mild degenerative subchondral sclerotic changes are seen in the medial and lateral tibial plateaux. Soft tissues: The soft tissues of the left lower leg appear within normal limits. IMPRESSION: 1. No acute fractures seen in the left tibia or fibula. 2. Mild degenerative subchondral sclerotic changes are seen in the medial and lateral tibial plateaux. 3. The soft tissues of the left lower leg appear within normal limits. Electronically signed by: Yeison Rodriguez On 10/24/2019 16:26:04 PM
[2019-10-24] MEDS ORDERED: TRAM50TA2 PO (16:59)
[2019-10-24 18:42] VITALS: BP 135/82
== END 2019-10-24 18:44 | disposition home or self-care (01) ==
LOC: M ED 14:14 → EDBD 14:14 → M ED 18:44
DX: M17.12 Unilateral primary osteoarthritis, left knee (principal); I10 Essential (primary) hypertension; K21.9 Gastro-esophageal reflux disease without esophagitis; M32.9 Systemic lupus erythematosus, unspecified; Z79.899 Other long term (current) drug therapy; Z88.5 Allergy status to narcotic agent; Z88.8 Allergy status to other drugs, medicaments and biological substances; Z91.018 Allergy to other foods; Z91.040 Latex allergy status; Z91.048 Other nonmedicinal substance allergy status

== ENCOUNTER → 2019-12-27 | Outpatient (CLI) | payer MEDICARE ==
[~2019-12-27] MED LIST changes: +TRAM50TA2 PO
--- NOTE | 2019-12-27 15:57 | REP ---
INDICATION: R/O DVT CALL RESULTS TO [phone] STAT. COMPARISON: 10/24/2019 TECHNIQUE: Multiple ultrasonographic images of the deep venous structures of the left thigh were obtained from the level of the common femoral vein to the popliteal vein in the longitudinal and transverse scan planes along with Doppler interrogation and color flow Doppler imaging. FINDINGS: There is no abnormal echogenic material seen within any of the visualized deep venous structures that would suggest acute thrombosis. Coaptation is unremarkable throughout. Doppler interrogation shows an expected response to respiratory variability and augmentation. The color flow Doppler images show what appears to be a normal vascular pattern throughout. In the popliteal fossa medially there is a 4.7 x 3.8 x 1 cm Jett's cyst. IMPRESSION: There is no ultrasonographic evidence of deep venous thrombosis involving any of the visualized deep venous structures of the left thigh as described above. There is a Jett's cyst behind the medial femoral condyle, 4.7 x 3.8 x 1 cm. Accredited by the [employer] in Vascular Peripheral Ultrasound. <Electronically signed by Mckinley Kraus > 12/27/19 [id number]
== END ==
LOC: M RAD 15:16
PROVIDERS: ATTEND Nurse Practitioner Family
DX: R60.0 Localized edema (principal)

== ENCOUNTER 2020-03-03 14:48 | Emergency (ER) | payer MEDICARE ==
[~2020-03-03] VITALS: Ht 167.6 cm; Wt 69.9 kg
--- OUTSIDE RECORDS SUMMARY | 2020-03-03 14:55 | CCD | Continuity of Care Document ---
Author Author Clarissa LINDSAY M.D. Organization Unknown Address [address] [place] [address] Phone [phone] Care Team Providers Care Commercial Green Building Architect Name Role Phone Ankita Johnson P.A.-C. AUTM [phone] Problems Active Problems Provider Date Dementia Ariana Lindsay M.D. Onset: 03/30/2018 Social History Type Date Description Comments Sex Unknown Tobacco Use Start: Unknown End: Unknown Patient is a former smoker Allergies, Adverse Reactions, Alerts Description No Known Drug Allergies Medications Active Medications SIG Qnty Indications Ordering Provide r Date Memantine HCL 5mg Tablets take one tab by mouth bid. 180tabs Ariana Lindsay M.D. 04/17/2018 Trazodone HCL 50mg Tablets take one at bedtime as needed insomnia 30tabs Ariana Lindsay M.D. Immunizations Description No Information Available Vital Signs Date Vital Result Comment 02/21/2020 12:44pm Respiratory Rate 12 /min Height 66 inches 5'6" Weight 160.00 lb BMI (Body Mass Index) 25.8 kg/m2 [place] Body Weight 130 lb 11/06/2019 1:14pm Respiratory Rate 12 /min Height 66 inches 5'6" Weight 147.00 lb BMI (Body Mass Index) 23.7 kg/m2 [place] Body Weight 130 lb Results Description No Information Available Procedures Date Code Description Status 10/03/2019 78590 MRI Spine Lumbar W/O Contrast Co mpleted 10/03/2019 09748 MRI Spine Lumbar W/O Contrast Co mpleted 09/19/2019 04549 Sympathetic Skin Responses Compl eted 09/19/2019 30980 Sympathetic Skin Responses Compl eted 09/19/2019 23770 Test Autonomic Nervous System, C ardiovagal Innervation Completed 09/19/2019 77852 Test Autonomic Nervous System, C ardiovagal Innervation Completed Medical Devices Description No Information Available Encounters Type Date Location Provider Dx Diagnosis Office Visit 02/21/2020 11:15a Main office - [place] Ariana regan M.D. G30.1 Alzheimer's disease with late onset Office Visit 11/06/2019 1:00p Main office - [place] Ariana regan M.D. G30.1 Alzheimer's disease with late onset Office Visit 09/25/2019 1:00p Main office - [place] Ariana regan M.D. M54.5 Low back pain Assessments Date Code Description Provider 02/21/2020 G30.1 Alzheimer's disease with late on set Ariana Lindsay M.D. 11/06/2019 G30.1 Alzheimer's disease with late on set Ariana Lindsay M.D. 10/03/2019 M54.5 Low back pain Lorri Wesley, LatoshaD Kayla 10/03/2019 M54.5 Low back pain MRI 10/03/2019 M48.062 Spinal stenosis, lumbar region w ith neurogenic claudication Lorri Wesley, LatoshaDKayla 10/03/2019 M48.062 Spinal stenosis, lumbar region w ith neurogenic claudication MRI 10/03/2019 R20.2 Paresthesia of skin Lorri Wesley, MKaylaDKayla 10/03/2019 R20.2 Paresthesia of skin MRI 09/25/2019 M54.5 Low back pain Ariana Lindsay M.D. 09/19/2019 G62.9 Polyneuropathy, unspecified Clive Lindsay M.D. 09/19/2019 G62.9 Polyneuropathy, unspecified Ans/ VS Plan of Treatment No Information Available Functional Status Description No Information Available Mental Status Description No Information Available Referrals Description No Information Available
--- OUTSIDE RECORDS SUMMARY | 2020-03-03 14:55 | CCD | Continuity of Care Document ---
Author Author Clarissa FERNÁNDEZ MD Organization Unknown Address [address] [place] [address], [address] [place] [address] Phone [phone] Care Team Providers Care Assembler Movement Name Role Phone Ann Marie Yung N.P. AUTM [phone] Problems Active Problems Provider Date Essential hypertension Jose Copeland DO Onset: 2011 Social History Type Date Description Comments Sex Unknown Tobacco Use Start: Unknown End: Unknown Former Cigarette Smo ker ETOH Use Denies alcohol use Tobacco Use Start: Unknown End: Unknown Patient is a former smoker 2-3 PPD Recreational Drug Use Denies Drug Use Tobacco Use Start: Unknown Quit 1984 Allergies, Adverse Reactions, Alerts Active Allergies Reaction Severity Comments Date Streptomycin 02/25/2011 Adhesives WELTS,ITCHING 02/25/2011 Kiwi NUMBNESS FACE,NECK 2 Bananas NUMBNESS FACE/NECK 6 [place] NUMBNESS FACE/NECK 6 Medications Active Medications SIG Qnty Indications Ordering Provide r Date Duloxetine HCL 20mg Caps Part daily Cristhian Carrillo MD 09/06/[address] 1 po bid 30caps Unknown Vitamin D3 1000Unit Tablets 1 PO Daily Unknown Losartan Potassium 25mg Tablets p.o daily 30tabs Unknown Oxybutynin Chloride ER 10mg Tablets ER 24HR daily 30tabs Unknown One Daily Tablets daily Unknown Chlorthalidone 25mg Tablets d aily Unknown Atorvastatin Calcium 20mg Tablets daily Unknown Memantine HCL 5mg Tablets Am/ pm Unknown Miralax 3350NF Packet take 17 gm per dose mixed with 8 ounces of water -- 1 or 2 times a day. avoid/ stop if having diarrhea. Unknown Tylenol 325mg Tablets 2 tab by mouth every 4-6 hours as needed for pain Unknown Magnesium 500mg Capsules 1 by mouth every day Unknown Trazodone HCL 50mg Tablets da malcolm Unknown Immunizations Description No Information Available Vital Signs Date Vital Result Comment 09/06/2018 11:55am BP Systolic 114 mmHg BP Diastolic 65 mmHg Height 65 inches 5'5" Weight 159.00 lb BMI (Body Mass Index) 26.5 kg/m2 [place] Body Weight 125 lb Weight 72.122 kg BSA (Body Surface Area) 1.79 m2 11/05/2015 10:27am BP Systolic 160 mmHg BP Diastolic 80 mmHg Height 65 inches 5'5" Weight 184.38 lb BMI (Body Mass Index) 30.7 kg/m2 [place] Body Weight 125 lb Weight 83.633 kg BSA (Body Surface Area) 1.91 m2 Results Description No Information Available Procedures Description No Information Available Medical Devices Description No Information Available Encounters Description No Information Available Assessments Date Code Description Provider 01/08/2020 M71.22 Synovial cyst of popliteal space [Jett], left knee Oliver Fernández MD Plan of Treatment 01/08/2020 - Oliver Fernández MD* M71.22 Synovial cyst of popliteal space [Jett], left knee* New Orders:* Director Of Teaching And Learning, Exercise Therapy, Ordered: 01/08/20 * Follow up:* prn Functional Status Description No Information Available Mental Status Description No Information Available Referrals Description No Information Available
--- OUTSIDE RECORDS SUMMARY | 2020-03-03 14:55 | CCD | Continuity of Care Document ---
Author Author Clarissa OTERO MD Organization Unknown Address [address] [place] [address], [facility] e [address] [place] [address] Phone [phone] Care Team Providers Care Chief Revenue Officer Name Role Phone Ann Marie Yung TOOL ENGINEER AUTM [phone] [facility] - Radiology / MRI AUTM [phone] Problems Description No Information Available Social History Type Date Description Comments Sex Unknown ETOH Use Denies alcohol use Tobacco Use Start: Unknown Denies Smoking Smoking Status Reviewed: 10/30/19 Denies Smoking Allergies, Adverse Reactions, Alerts Active Allergies Reaction Severity Comments Date Streptomycin 08/16/2017 Tape 08/16/2017 Kiwi 08/16/2017 Bananas 08/16/2017 [place] 08/16/2017 Medications Active Medications SIG Qnty Indications Ordering Provide r Date Duloxetine HCL 20mg Caps DR Part take 1 capsule daily 90caps F43.23 Ann Marie Yung FNP 07/10/2019 Percocet 5-325mg Tablets 1-2 tabs Q6hr prn / post surgical pain Dos 10-16-19 30tabs Gabriel snow MD 11/13/[address] Take 1 Capsule Daily 90caps Jessika Gipson MD 08/09/2018 Trazodone HCL 50mg Tablets take 1 tablet by mouth every night at bedtime for sleep as needed 90tabs Jessika Gipson MD 06/20/2018 Memantine HCL 5mg Tablets 1 by mouth twice a day Jessika Gipson MD 04/18/2018 Oxybutynin Chloride ER 10mg Tablets ER 24HR Take 1 Tablet Once Daily Inthe Morning For Urinary Symptoms 90ta bs N39.3 Jessika Gipson MD 09/15/2016 Potassium Chloride ER 10Meq Capsul es ER 1 cap by mouth twice a day 180Jessika Ramsay MD 0 03/19/2016 Atorvastatin Calcium 20mg Tablets Take 1 Tablet Daily For Cholesterol 90tabs E78.2 Jessika Gipson MD 03/19/2016 Polyethylene Glycol 3350 17GM/Scoop Powder take 1/2 capful (17 grams) mixed in 4-8 ounces of liqu id by mouth once daily 527units K59.00 Richard Mclain MD 01/15/2016 Losartan Potassium 25mg Tablets Take 1 Tablet Every Morningfor Blood Pressure 90tabs I10 Jessika Gipson MD 06/19/2014 Calcium 600 600mg Tablets 1 by mouth twice a day 180tabs Jessika Gipson MD Magnesium 500mg Capsules 1 by mouth every day 90caps Jessika Gipson MD Tylenol 8 Hour 650mg Tablets ER as Needed Unknown One-A-Day Womens 50+ Advantage 50+Adv Tablets one po qd Unknown Tramadol HCL 50mg Tablets take 1 tablet by mouth every 6 hours as needed for pain Unknown Duloxetine HCL 30mg Caps Ankita Nuñez PA Tramadol HCL 50mg Tablets Take One Tablet By Mouth Every 6 Hours as Needed For Pain Maximum Daily Dose 4 Unknown Trazodone HCL 50mg Tablets Ankita Johnson PA Duloxetine HCL 20mg Caps Ankita Nuñez PA Potassium Chloride ER 10Meq Capsules ER Ankita Johnson PA Memantine HCL 5mg Tablets Ariana Mancera MD Magnesium 500mg Capsules 1 every other day Unknown Vitamin D3 400Unit Chewtabs 2 tabs Unknown Calcium 600 600mg Tablets twi ce a day Unknown Atorvastatin Calcium 20mg Tablets 1 by mouth every day Unknown Omeprazole 40mg Capsules DR 1 by mouth every day Unknown Losartan Potassium 25mg Tablets 1 by mouth every day Unknown Oxybutynin Chloride ER 10mg Tablets ER 24HR 1 by mouth every day Unknown 0 000 Immunizations Description No Information Available Vital Signs Date Vital Result Comment 10/26/2019 12:05pm Height 65 inches 10/26/2019 1:15pm Body Temperature 97.3 F Height 66 inches 5'6" Weight 142.00 lb BMI (Body Mass Index) 22.9 kg/m2 Results Test Acquired Date Facility Test Result H/L Range Note Comprehensive Metabolic Panel 10/17/2019 N2N/CCD Im port Sodium 143 mEq/L 135-145 Potassium 3.8 mEq/L 3.5-5.3 Chloride 107 mEq/L 94-110 Carbon Dioxide 26 mEq/L 22-33 Anion Gap 14 1 5-16 Blood Urea Nitro 18 mg/dL 7-25 Creatinine 0.8 mg/dL 0.6-1.4 GFR 68.8 mL/min 1 BUN/Creat Ratio 22 1 8-36 Glucose 70 mg/dL 70-100 CA 9.4 mg/dL 8.7-10.5 Bilirubin,Total 0.6 mg/dL 0.1-1.3 Ast 23 U/L 5-40 Alt 14 U/L 5-48 Alkaline Phosphatase 59 U/L 40-140 Total Protein 5.7 g/dL Low 5.9-8.3 Albumin 4.2 g/dL 3.0-5.1 Globulin 1.5 g/dL 1.5-3.5 Alb/Glob Ratio 2.8 g/dL 1.0-3.0 Lab Results 10/17/2019 N2N/CCD Import Free T4 (Free Thyroxine) 1.10 ng/dL 0.76-1.78 TSH 1.440 uIU/ML 0.470-4.200 2 1 Stage G2 - Mildly decreased kidney function The GFR is an estimate of the Glomerular Filtration Rate. It is an aid to assess a patient's renal function. It is not a conclusive diagnosis of kidney disease. GFR normal is >=90 The MDRD GFR calculation is considered valid between the ages of 18 and 75 years only. 2 Patients should not be teste d for 72 hours post fluorescein dye angiography. A false depression of result may occur. Procedures Date Code Description Status 01/08/2020 36353 X-Ray Knee Complete W/Obliques & Tunnel And/Or Standing Views Completed Medical Devices Description No Information Available Encounters Type Date Location Provider Dx Diagnosis Office Visit 12/11/2019 4:30p [facility] S83.272D Complex tear of lat mensc, current injury, left knee, subs S83.242D Oth tear of medial meniscus, current injury, left knee, subs S83.512D Sprain of anterior cruciate ligament of left knee, subs S83.422D Sprain of lateral collateral ligament of left knee, subs Office Visit 10/26/2019 1:00p [facility] S80.02xA Contusion of left knee, initial encounter S80.12xA Contusion of left lower leg, initial encounter Assessments Date Code Description Provider 12/11/2019 S83.272D Complex tear of late ral meniscus, current injury, left knee, subsequent encounter [facility] 12/11/2019 S83.242D Other tear of medial meniscus, current injury, left knee, subsequent encounter [facility] Gr[facility] 12/11/2019 S83.512D Sprain of anterior c ruciate ligament of left knee, subsequent encounter [facility] Grimes 12/11/2019 S83.422D Sprain of lateral co llateral ligament of left knee, subsequent encounter [facility] 12/07/2019 S80.12xA Contusion of left lower leg, ini tial encounter [facility] Grimes 12/07/2019 S80.02xA Contusion of left knee, initial encounter [facility] Grimes 10/26/2019 S80.12xA Contusion of left lower leg, ini tial encounter B[facility] Grimes 10/26/2019 S80.02xA Contusion of left knee, initial encounter [facility] Grimes 10/26/2019 S80.02xA Contusion of left knee, initial encounter [facility] Gr[facility] 10/26/2019 S80.12xA Contusion of left lower leg, ini tial encounter BARRON Grimes Plan of Treatment No Information Available Functional Status Description No Information Available Mental Status Description No Information Available Referrals Description No Information Available
--- OUTSIDE RECORDS SUMMARY | 2020-03-03 14:55 | CCD | Continuity of Care Document ---
Author Author Clarissa YUNG [facility] Organization Unknown Address [address] [place] [address] Phone [phone] Care Team Providers Care Radiator Mechanic Name Role Phone [facility] - Otolaryngology AUTM [phone] [facility] Gastro - Gastroenterology AUTM Christian Henderson M.D. AUTM [phone] [facility] - Orthopaedic Surgery AUTM [phone] [facility] Breast Care AUTM [phone] Problems Active Problems Provider Date Essential hypertension Richard Mclain M.D. Onset: Mixed hyperlipidemia Richard Mclain M.D. Onset: 04/28 Vitamin D deficiency Richard Mclain M.D. Onset: 04/28 Generalized anxiety disorder Richard Mclain M.D. Onse t: 04/28/2010 Allergic rhinitis Richard Mclain M.D. Onset: 2010 Spinal stenosis of lumbar region Richard Mclain M.D. Onset: 04/28/2010 Depressive disorder Richard Mclain M.D. Onset: 2010 Female stress incontinence Richard Mclain M.D. Onset: 07/02/2010 Degenerative joint disease involving multiple joints Richard Mclain M.D. Onset: 08/05/2014 Gastroesophageal reflux disease Richard Mclain M.D. O nset: 08/05/2014 Social History Type Date Description Comments Sex Unknown Tobacco Use Start: Unknown End: Unknown denies cigarette use Tobacco Use Start: Unknown Never Used Smokeless Tobacco ETOH Use Occasionally consumes wine Tobacco Use Start: Unknown End: Unknown Patient is a former smoker quit smoking at age 50. Prior 1-2 ppd x 15 years. Started smoking at age 22. Recreational Drug Use Denies Drug Use Smoking Status Reviewed: 12/27/19 Patient is a former smoker qu it smoking at age 50. Prior 1-2 ppd x 15 years. Started smoking at age 22. Exercise Type/Frequency Does not exercise Tattoo/Piercing Tattoo Sun Exposure Uses sunscreen Seat Belt/Car Seat Always uses seat belt Smoke Alarms Yes Smoke Alarms Carbon Monoxide Detector: Yes Allergies, Adverse Reactions, Alerts Active Allergies Reaction Severity Comments Date Streptomycin numbness 02/18/2009 Tape rash 02/18/2009 Kiwi face numbness 02/21/2015 Bananas facial numbness 09/30/2015 [place] facial numbness 09/30/2015 Medications Active Medications SIG Qnty Indications Ordering Provide r Date Duloxetine HCL 40mg Caps DR Part take 1 capsule daily 90caps F43.23 Ann Marie Yung FNP 12/27/2019 Mupirocin 2% Ointment apply to open areas twice a day until healed 22gm R21 Ann Marie Yung FNP Omeprazole 40mg Capsules DR Take 1 Capsule Daily 90caps Jessika Gipson M.D. 019 Trazodone HCL 50mg Tablets take 1 tablet by mouth every night at bedtime for sleep as needed 90tabs Jessika Gipson M.D. 06/20/2018 Memantine HCL 5mg Tablets 1 by mouth twice a day Jessika Gipson M.D. 019 Vitamin D 3 2000Iu Capsules 1 by mouth every day 90caps E55.9 Jessika Gipson M.D. 019 Oxybutynin Chloride ER 10mg Tablets ER 24HR Take 1 Tablet Once Daily Inthe Morning For Urinary Symptoms 9 0tabs N39.3 Jessika Gipson M.D. 09/15/2016 Potassium Chloride ER 10Meq Capsul es ER 1 cap by mouth twice a day 180caps Jessika Gipson M.D . 03/19/2016 Atorvastatin Calcium 20mg Tablets Take 1 Tablet Daily For Cholesterol 90tabs E78.2 Jessika Gipson M.D. 03/19/2016 Losartan Potassium 25mg Tablets Take 1 Tablet Every Morningfor Blood Pressure 90tabs I10 Jessika Gipson M.D. 06/19/2014 Calcium 600 600mg Tablets 1 by mouth twice a day 180tabs Jessika Gipson M.D. Magnesium 500mg Capsules 1 by mouth every day 90caps Jessika Gipson M.D. 000 Tylenol 8 Hour 650mg Tablets ER as Needed Unknown One-A-Day Womens 50+ Advantage 50+Adv Tablets one po qd Unknown History Medications Duloxetine HCL 20mg Caps DR Part take 1 capsule daily 90caps F43.23 Ann Marie Yung FNP 07/10/2019 - 12/27/2019 Medications Administered in Office Medication SIG Qnty Indications Ordering Provider Date H1N1 Vaccine Injection Richard Mclain M.D. 03/21/2009 Immunizations CPT Code Status Date Vaccine Lot # [id number] Given 11/20/2018 Influenza Virus Vaccine, Quadrivalent,age 3 and up,multidose vial [id number] Given 01/19/2018 Influenza,Unspecified Q2038 Given 11/11/2015 Influenza Vaccine (Fluzone)( medicare) [id number] Given 09/30/2015 Pneumococcal Vaccine [id number] Given 08/05/2014 Prevnar 13 [id number] Q2038 Given 12/01/2012 Influenza Vaccine (Fluzone)( medicare) [id number] Given 12/01/2012 Influenza Vaccination [id number] Q2038 Given 11/10/2011 Influenza Vaccine (Fluzone)( medicare) [id number] Given 11/10/2011 Boostrix (Tdap) Tetnus, Diphtheria Toxoids & Acellular Pertussis [id number] Q2038 Given 10/23/2010 Influenza Vaccine (Fluzone)( medicare) 91825 Given 10/30/2009 Influenza Vaccination [id number] Vital Signs Date Vital Result Comment 12/27/2019 1:48pm BP Systolic 166 mmHg BP Diastolic 100 mmHg BP Systolic Recheck 144 mmHg BP Diastolic Recheck 82 mmHg Heart Rate 84 /min Body Temperature 97.1 F Respiratory Rate 17 /min Height 65 inches 5'5" Weight 151.50 lb O2 % BldC Oximetry 98 % [place] Body Weight 125 lb BMI (Body Mass Index) 25.2 kg/m2 10/26/2019 12:05pm BP Systolic 81 mmHg BP Diastolic 59 mmHg Heart Rate 128 /min Body Temperature 97.7 F Respiratory Rate 18 /min Height 65 inches 5'5" O2 % BldC Oximetry 98 % [place] Body Weight 125 lb Results Test Acquired Date Facility Test Result H/L Range Note Comprehensive Metabolic Panel 10/17/2019 [place] ([facility])- - Sodium 143 mEq/L Normal 135-145 Potassium 3.8 mEq/L Normal 3.5-5.3 Chloride 107 mEq/L Normal 94-110 Carbon Dioxide 26 mEq/L Normal 22-33 Anion Gap 14 Normal 5-16 Blood Urea Nitro 18 mg/dL Normal 7-25 Creatinine 0.8 mg/dL Normal 0.6-1.4 GFR 68.8 mL/min 1 BUN/Creat Ratio 22 Normal 8-36 Glucose 70 mg/dL Normal 70-100 CA 9.4 mg/dL Normal 8.7-10.5 Bilirubin,Total 0.6 mg/dL Normal 0.1-1.3 Ast 23 U/L Normal 5-40 Alt 14 U/L Normal 5-48 Alkaline Phosphatase 59 U/L Normal 40-140 Total Protein 5.7 g/dL Low 5.9-8.3 Albumin 4.2 g/dL Normal 3.0-5.1 Globulin 1.5 g/dL Normal 1.5-3.5 Alb/Glob Ratio 2.8 g/dL Normal 1.0-3.0 Lipid Panel 10/17/2019 [place] ([facility])- - Triglycerides 57 mg/dL Normal 45-150 Cholesterol 148 mg/dL Normal 125-200 LDL Cholesterol 77 mg/dL Normal 50-130 HDL Cholesterol 60 mg/dL Normal 32-96 Chol/HDL Ratio 2.5 Normal 0-4.3 Laboratory test finding 10/17/2019 [place] ([facility])- - Free T4 (Free Thyroxine) 1.10 ng/dL Normal 0.76-1.78 TSH 1.440 uIU/ML Normal 0.470-4.200 2 1 Stage G2 - Mildly [...] may occur. Procedures Date Code Description Status 05/18/2018 [id number] Mammogram Completed 11/10/2017 [id number] Bone Mineral Density Test Comple josi 10/08/2015 [id number] Mammogram Completed 03/11/2015 [id number] Mammogram Completed 09/05/2014 [id number] Mammogram Completed Medical Devices Description No Information Available Encounters Type Date Location Provider Dx Diagnosis Office Visit 12/27/2019 2:00p Main Office Ann Marie Yung FNP R60.0 Localized edema F43.23 Adjustment disorder with mix ed anxiety and depressed mood R21 Rash and other nonspecific s kin eruption Office Visit 10/26/2019 11:45a Main Office Ann Marie Yung FNP I10 Essential (primary) hypertension G30.1 Alzheimer's disease with lat e onset K21.9 Gastro-esophageal reflux dis ease without esophagitis F43.23 Adjustment disorder with mix ed anxiety and depressed mood M25.562 Pain in left knee Office Visit 07/25/2019 2:40p Main Office Ann Marie Yung GAS ANALYST I10 Essential (primary) hypertension G30.1 Alzheimer's disease with lat e onset K21.9 Gastro-esophageal reflux dis ease without esophagitis F43.23 Adjustment disorder with mix ed anxiety and depressed mood Z00.00 Encntr for general adult med ical exam w/o abnormal findings Assessments Date Code Description Provider 12/27/2019 R60.0 Localized edema Ann Marie Yung FNP 12/27/2019 F43.23 Adjustment disorder with mixed a nxiety and depressed mood Ann Marie Yung FNP 12/27/2019 R21 Rash and other nonspecific skin eruption Ann Marie Yung FNP 10/26/2019 I10 Essential (primary) hypertension Ann Marie Yung GAS ANALYST 10/26/2019 G30.1 Alzheimer's disease with late on set Ann Marie Yung FNP 10/26/2019 K21.9 Gastro-esophageal reflux disease without esophagitis Ann Marie Yung FNP 10/26/2019 F43.23 Adjustment disorder with mixed a nxiety and depressed mood Ann Marie Yung FNP 10/26/2019 M25.562 Pain in left knee Jessica Yung FNP 07/25/2019 I10 Essential (primary) hypertension Ann Marie Yung FNP 07/25/2019 G30.1 Alzheimer's disease with late on set Ann Marie Yung FNP 07/25/2019 K21.9 Gastro-esophageal reflux disease without esophagitis Ann Marie Yung FNP 07/25/2019 F43.23 Adjustment disorder with mixed a nxiety and depressed mood Ann Marie Yung FNP 07/25/2019 Z00.00 Encounter for genera l adult medical examination without abnormal findings Ann Marie Yung FNP Plan of Treatment 12/27/2019 - Ann Marie Yung FNP* R60.0 Localized edema* Comments:* ultrasound LLE to R/O DVT * F43.23 Adjustment disorder with mixed anxiety and depressed mood* New Medication:* Duloxetine HCL 40 mg - take 1 capsule daily * Comments:* increase duloxetine and see response * R21 Rash and other nonspecific skin eruption* New Medication:* Mupirocin 2 % - apply to open areas twice a day until healed Functional Status Functional Condition Comment Date Status Glasses reading only Active Independent with all ADL's Activ e Complete lower and upper and lower dentures Active Independent with all IADL's Acti ve Standard cane is used with the right hand to ambulate Active Life Line/Med Alert Device Activ e Mental Status Mental Condition Comment Date Status None Active Referrals Refer to Reason for Referral Status Appt Date [facility] left cyst left knee Sent [address] [place] [address] [phone] [facility] left knee pain Closed 10/26/2019 [address] [place] [address] [phone]
--- OUTSIDE RECORDS SUMMARY | 2020-03-03 14:55 | CCD | Continuity of Care Document ---
Author Author Clarissa LINDSAY M.D. Organization Unknown Address [address] [place] [address] Phone [phone] Care Team Providers Care Engraver Optical Frames Name Role Phone Ankita Johnson P.A.-C. AUTM [phone] Problems Active Problems Provider Date Dementia Ariana [...] lb BMI (Body Mass Index) 23.7 kg/m2 [place] Body Weight 130 lb 11/06/2019 1:14pm Respiratory Rate 12 /min Height 66 inches 5'6" Weight 147.00 lb BMI (Body Mass Index) 23.7 kg/m2 [place] Body Weight 130 lb Results Description No Information Available Procedures Date Code Description Status 10/03/2019 07255 MRI Spine Lumbar W/O Contrast Co mpleted 10/03/2019 02003 MRI Spine Lumbar W/O Contrast Co mpleted 09/19/2019 53393 Sympathetic Skin Responses Compl eted 09/19/2019 35945 Sympathetic Skin Responses Compl eted 09/19/2019 38668 Test Autonomic Nervous System, C ardiovagal Innervation Completed 09/19/2019 18347 Test Autonomic Nervous System, C ardiovagal Innervation Completed Medical Devices Description No Information Available Encounters Type Date Location Provider Dx Diagnosis Office Visit 11/06/2019 1:00p Main office - [place] Ariana regan M.D. G30.1 Alzheimer's disease with late onset Office Visit 09/25/2019 1:00p Main office - Regan Ariana regan M.D. M54.5 Low back pain Assessments Date Code Description Provider 02/21/2020 G30.1 Alzheimer's disease with late on set Ariana Lindsay M.D. 11/06/2019 G30.1 Alzheimer's disease with late on set Ariana Lindsay M.D. 10/03/2019 M54.5 Low back pain Lorri WesleyLatosha babinD Kayla 10/03/2019 M54.5 Low back pain MRI [...]
--- OUTSIDE RECORDS SUMMARY | 2020-03-03 14:56 | CCD | Continuity of Care Document ---
Author Author Clarissa HERRMANN PA Organization Unknown Address [address] [place] [address], [facility] [address] [place] [address] Phone [phone] Care Team Providers Care Access Services Representative Name Role Phone Ann Marie Yung ADVERTISING ACCOUNT MANAGER AUTM [phone] [facility] Radiology - Radiology / MRI AUTM Problems Description No Information Available Social History Type Date Description Comments Sex Unknown ETOH Use Denies alcohol use Tobacco Use Start: Unknown Denies Smoking Smoking Status Reviewed: 10/30/19 Denies Smoking Allergies, Adverse Reactions, Alerts Active Allergies Reaction Severity Comments Date Streptomycin 08/16/2017 Tape 08/16/2017 Kiwi 08/16/2017 Bananas 08/16/2017 [place] 08/16/2017 Medications Active Medications SIG Qnty Indications [...] false depression of result may occur. Procedures Description No Information Available Medical Devices Description No Information Available Encounters Type Date Location Provider Dx Diagnosis Office Visit 12/11/2019 4:30p [place] Sonu I. Drazek, [place] S83.272D Complex tear of lat mensc, current injury, left knee, subs S83.242D Oth tear of medial meniscus, current injury, left knee, subs S83.512D Sprain of anterior cruciate ligament of left knee, subs S83.422D Sprain of lateral collateral ligament of left knee, subs Office Visit 10/26/2019 1:00p [place] BARRON Grimes S80.02xA Contusion of left knee, [...] S80.12xA Contusion of left lower leg, ini tia encounter BARRON Grimes 10/26/2019 S80.02xA Contusion of left knee, initial encounter BARRON Grimes 10/26/2019 S80.02xA Contusion of left knee, initial encounter BARRON Grimes 10/26/2019 S80.12xA Contusion of left lower leg, ini tia encounter BARRON Grimes Plan of Treatment No Information Available Functional Status Description No Information Available Mental Status Description No Information Available Referrals Description No Information Available
--- OUTSIDE RECORDS SUMMARY | 2020-03-03 14:56 | CCD | Continuity of Care Document ---
Author Author Clarissa HERRMANN PA Organization Unknown Address [address] [place] [address], [facility] [address] [place] [address] Phone [phone] Care Team Providers Care Silk Hanger Name Role Phone Ann Marie Yung ANTENNA INSTALLER AUTM [phone] [facility] Radiology - Radiology / MRI AUTM [phone] Problems Description No Information Available Social History Type Date Description Comments Sex Unknown ETOH Use Denies alcohol use Tobacco Use Start: Unknown Denies Smoking Smoking Status Reviewed: 10/30/19 Denies Smoking Allergies, Adverse Reactions, Alerts Active Allergies Reaction Severity Comments Date Streptomycin 08/16/2017 Tape 08/16/2017 Kiwi 08/16/2017 Bananas 08/16/2017 [place] 08/16/2017 Medications Active Medications SIG Qnty Indications [...] Provider Dx Diagnosis Office Visit 12/11/2019 4:30p [place] Sonu I. Drazek, [place] S80.12xD Contusion of left lower leg, subsequent encounter Office Visit 10/26/2019 1:00p [place] BARRON Grimes S80.02xA Contusion of left knee, initial encounter S80.12xA Contusion of left lower leg, initial encounter Assessments Date Code Description Provider 12/11/2019 S80.12xD Contusion of left lower leg, sub sequent encounter BARRON Grimes 12/07/2019 S80.12xA Contusion of [...]
--- OUTSIDE RECORDS SUMMARY | 2020-03-03 14:56 | CCD ---
Author Author [facility] Organization [facility] Address Unknown Phone Unavailable Care Team Providers Care Transmission Builder Name Role Phone Avinash Fernandez MD Unavailable Unavailable Avinash Fernandez MD Unavailable Unavailable Fernandez, F Monserrat ALCANTARA Unavailable Unavailable Jim F Monserrat ALCANTARA Unavailable Unavailable Jim F Monserrat ALCANTARA Unavailable Unavailable Fernandez, F Monserrat ALCANTARA Unavailable Unavailable Fernandez, F Monserrat ALCANTARA Unavailable Unavailable Fernandez, F Monserrat ALCANTARA Unavailable Unavailable Fernandez, F Monserrat ALCANTARA Unavailable Unavailable Jim, F Monserrat ALCANTARA Unavailable Unavailable Fernandez, F Monserrat ALCANTARA Unavailable Unavailable Jim, F Monserrat ALCANTARA Unavailable Unavailable Fernandez, F Mosnerrat ALCANTARA Unavailable Unavailable Fernandez, F Monserrat ALCANTARA Unavailable Unavailable Fernandez, F Monserrat ALCANTARA Unavailable Unavailable Fernandez, F Monserrat ALCANTARA Unavailable Unavailable Fernandez, F Monserrat ALCANTARA Unavailable Unavailable Fernandez, F Monserrat ALCANTARA Unavailable Unavailable Jim F Monserrat ALCANTARA Unavailable Unavailable Brandan, Darcy Rosen MD Unavailable Unavailable Brandan, Darcy Rosen MD Unavailable Unavailable Brandan, Darcy Rosen MD Unavailable Unavailable Brandan, Darcy Rosen MD Unavailable Unavailable Brandan, Darcy Rosen MD Unavailable Unavailable Brandan, Darcy Rosen MD Unavailable Unavailable Brandan, Darcy Rosen MD Unavailable Unavailable Brandan, Darcy Rosen MD Unavailable Unavailable Brandan, Darcy Rosen MD Unavailable Unavailable Brandan, Darcy Rosen MD Unavailable Unavailable Brandan, Darcy Rosen MD Unavailable Unavailable Brandan, Darcy Rosen MD Unavailable Unavailable Brandan, Darcy Rosen MD Unavailable Unavailable Brandan, Darcy Rosen MD Unavailable Unavailable Brandan, Darcy Rosen MD Unavailable Unavailable Brandan, Darcy Rosen MD Unavailable Unavailable Brandan, Darcy Rosen MD Unavailable Unavailable Brandan, Darcy Rosen MD Unavailable Unavailable Brandan, Darcy Rosen MD Unavailable Unavailable Brandan, Darcy Rosen MD Unavailable Unavailable Brandan, A Jessika ALCANTARA Unavailable Unavailable Brandan, Darcy Rosen MD Unavailable Unavailable Brandan, Darcy Rosen MD Unavailable Unavailable Brandan, Darcy Rosen MD Unavailable Unavailable Brandan, Darcy Rosen MD Unavailable Unavailable Brandan, Darcy Rosen MD Unavailable Unavailable Brandan, Darcy Rosen MD Unavailable Unavailable Brandan, A Jessika ALCANTARA Unavailable Unavailable Brandan, A Jessika ALCANTARA Unavailable Unavailable Brandan, Darcy Rosen MD Unavailable Unavailable Brandan, Darcy Rosen MD Unavailable Unavailable Brandan, Darcy Rosen MD Unavailable Unavailable Brandan, Darcy Rosen MD Unavailable Unavailable Brandan, Darcy Rosen MD Unavailable Unavailable Brandan, Darcy Rosen MD Unavailable Unavailable Brandan, A Jessika ALCANTARA Unavailable Unavailable Brandan, A Jessika ALCANTARA Unavailable Unavailable Brandan, Darcy Rosen MD Unavailable Unavailable Brandan, Darcy Rosen MD Unavailable Unavailable Brandan, Darcy Rosen MD Unavailable Unavailable Brandan, Darcy Rosen MD Unavailable Unavailable Brandan, Darcy Rosen MD Unavailable Unavailable Brandan, Darcy Rosen MD Unavailable Unavailable Brandan, Darcy Rosen MD Unavailable Unavailable Brandan, Darcy Rosen MD Unavailable Unavailable Brandan, Darcy Rosen MD Unavailable Unavailable Brandan, Darcy Rosen MD Unavailable Unavailable Brandan, Darcy Rosen MD Unavailable Unavailable Brandan, Darcy Rosen MD Unavailable Unavailable Brandan, Darcy Rosen MD Unavailable Unavailable Brandan, Darcy Rosen MD Unavailable Unavailable Brandan, Darcy Rosen MD Unavailable Unavailable Brandan, Darcy Rosen MD Unavailable Unavailable Brandan, Darcy Rosen MD Unavailable Unavailable Brandan, Darcy Rosen MD Unavailable Unavailable Brandan, Darcy Rosen MD Unavailable Unavailable Brandan, Darcy Rosen MD Unavailable Unavailable Brandan, Darcy Rosen MD Unavailable Unavailable Brandan, Darcy Rosen MD Unavailable Unavailable Brandan, Darcy Rosen MD Unavailable Unavailable Brandan, Darcy Rosen MD Unavailable Unavailable Brandan, Darcy Rosen MD Unavailable Unavailable Brandan, Darcy Rosen MD Unavailable Unavailable Brandan, Darcy Rosen MD Unavailable Unavailable Brandan, Darcy Rosen MD Unavailable Unavailable Brandan, Darcy Rosen MD Unavailable Unavailable Brandan, Darcy Rosen MD Unavailable Unavailable Brandan, Darcy Rosen MD Unavailable Unavailable Brandan, Darcy Rosen MD Unavailable Unavailable Brandan, Darcy Rosen MD Unavailable Unavailable Brandan, Darcy Rosen MD Unavailable Unavailable Brandan, Darcy Rosen MD Unavailable Unavailable Brandan, Darcy Rosen MD Unavailable Unavailable Brandan, Darcy Rosen MD Unavailable Unavailable Brandan, Darcy Rosen MD Unavailable Unavailable Brooks Del Real, Darcy Morrow MD, FACS Unavailable Unavailable Brooks Del Real, Darcy Morrow MD, FACS Unavailable Unavailable Brooks Del Real, Darcy Morrow MD, FACS Unavailable Unavailable Brooks Del Real, Darcy Morrow MD, FACS Unavailable Unavailable Brooks Del Real, Darcy Morrow MD, FACS Unavailable Unavailable Brooks Del Real, Darcy Morrow MD, FACS Unavailable Unavailable Brooks Del Real, Darcy Morrow MD, FACS Unavailable Unavailable Brooks Del Real, Darcy Morrow MD, FACS Unavailable Unavailable Brooks Del Real, Darcy Morrow MD, FACS Unavailable Unavailable Brooks Del Real, Darcy Morrow MD, FACS Unavailable Unavailable Brooks Del Real, Darcy Morrow MD, FACS Unavailable Unavailable Brooks Del Real, Darcy Morrow MD, FACS Unavailable Unavailable Brooks Del Real, Darcy Morrow MD, FACS Unavailable Unavailable Brooks Del Real, Darcy Morrow MD, FACS Unavailable Unavailable Brooks Del Real, Darcy Morrow MD, FACS Unavailable Unavailable Brooks Del Real, Darcy Morrow MD, FACS Unavailable Unavailable Brooks Del Real, Darcy Morrow MD, FACS Unavailable Unavailable Brooks Del Real, Darcy Morrow MD, FACS Unavailable Unavailable Brooks Del Real, Darcy Morrow MD, FACS Unavailable Unavailable Brooks Del Real, Darcy Morrow MD, FACS Unavailable Unavailable Brooks Del Real, Darcy Morrow MD, FACS Unavailable Unavailable Brooks Del Real, Darcy Morrow MD, FACS Unavailable Unavailable Brooks Del Real, Darcy Morrow MD, FACS Unavailable Unavailable Brooks Del Real, Darcy Morrow MD, FACS Unavailable Unavailable Brooks Del Real, Darcy Morrow MD, FACS Unavailable Unavailable Brooks Del Real, Darcy Morrow MD, FACS Unavailable Unavailable Brooks Del Real, Darcy Morrow MD, FACS Unavailable Unavailable Brooks Del Real, Darcy Morrow MD, FACS Unavailable Unavailable Brooks Del Real, Darcy Morrow MD, FACS Unavailable Unavailable Brooks Del Real, Darcy Morrow MD, FACS Unavailable Unavailable Brooks Del Real, Darcy Morrow MD, FACS Unavailable Unavailable Brooks Del Real, Darcy Morrow MD, FACS Unavailable Unavailable Brooks Del Real, Darcy Morrow MD, FACS Unavailable Unavailable Brooks Del Real, Darcy Morrow MD, FACS Unavailable Unavailable Scordo, M Ankita PA Unavailable Unavailable Scordo, M Ankita PA Unavailable Unavailable Scordo, M Ankita PA Unavailable Unavailable Scordo, M Ankita PA Unavailable Unavailable Scordo, M Ankita PA Unavailable Unavailable Scordo, M Ankita PA Unavailable Unavailable Scordo, M Ankita PA Unavailable Unavailable Scordo, M Ankita PA Unavailable Unavailable Scordo, M Ankita PA Unavailable Unavailable Scordo, M Ankita PA Unavailable Unavailable Scordo, M Ankita PA Unavailable Unavailable Scordo, M Ankita PA Unavailable Unavailable Scordo, M Ankita PA Unavailable Unavailable Scordo, M Ankita PA Unavailable Unavailable Scordo, M Ankita PA Unavailable Unavailable Scordo, M Ankita PA Unavailable Unavailable Scordo, M Ankita PA Unavailable Unavailable Scordo, M Ankiat PA Unavailable Unavailable Scordo, M Ankita PA Unavailable Unavailable Scordo, M Ankita PA Unavailable Unavailable Scordo, M Ankita PA Unavailable Unavailable Scordo, M Ankita PA Unavailable Unavailable Scordo, M Ankita PA Unavailable Unavailable Scordo, M Ankita PA Unavailable Unavailable Scordo, M Ankita PA Unavailable Unavailable Scordo, M Ankita PA Unavailable Unavailable Scordo, M Ankita PA Unavailable Unavailable Scordo, M Ankita PA Unavailable Unavailable Scordo, M Ankita PA Unavailable Unavailable Scordo, M Ankita PA Unavailable Unavailable Scordo, M Ankita PA Unavailable Unavailable Scordo, M Ankita PA Unavailable Unavailable Scordo, M Ankita PA Unavailable Unavailable Scordo, M Ankita PA Unavailable Unavailable Scordo, M Ankita PA Unavailable Unavailable Scordo, M Ankita PA Unavailable Unavailable Scordo, M Ankita PA Unavailable Unavailable Scordo, M Ankita PA Unavailable Unavailable Scordo, M Ankita PA Unavailable Unavailable Scordo, M Ankita PA Unavailable Unavailable Cristhian Gregorio MD Unavailable Unavailable Cristhian Gregorio MD Unavailable Unavailable Cristhian Gregorio MD Unavailable Unavailable Cristhian Gregorio MD Unavailable Unavailable Cristhian Gregorio MD Unavailable Unavailable Cristhian Gregorio MD Unavailable Unavailable Cristhian Gregorio MD Unavailable Unavailable Cristhian Gregorio MD Unavailable Unavailable Cristhian Gregorio MD Unavailable Unavailable Cristhian Gregorio MD Unavailable Unavailable Cristhian Gregorio MD Unavailable Unavailable Cristhian Gregorio MD Unavailable Unavailable Cristhian Gregorio MD Unavailable Unavailable Cristhian Gregorio MD Unavailable Unavailable Cristhian Gregorio MD Unavailable Unavailable Cristhian Gregorio MD Unavailable Unavailable Cristhian Gregorio MD Unavailable Unavailable Cristhian Gregorio MD Unavailable Unavailable Cristhian Gregorio MD Unavailable Unavailable Cristhian Gregorio MD Unavailable Unavailable Cristhian Gregorio MD Unavailable Unavailable Cristhian Gregorio MD Unavailable Unavailable Cristhian Gregorio MD Unavailable Unavailable Cristhian Gregorio MD Unavailable Unavailable Cristhian Gregorio MD Unavailable Unavailable DRAZEK, I TIFFANI PA Unavailable Unavailable DRAZEK, I TIFFANI PA Unavailable Unavailable DRAZEK, I TIFFANI PA Unavailable Unavailable DRAZEK, I TIFFANI PA Unavailable Unavailable DRAZEK, I TIFFANI PA Unavailable Unavailable DRAZEK, I TIFFANI PA Unavailable Unavailable DRAZEK, I TIFFANI PA Unavailable Unavailable DRAZEK, I TIFFANI PA Unavailable Unavailable DRAZEK, I TIFFANI PA Unavailable Unavailable DRAZEK, I TIFFANI PA Unavailable Unavailable DRAZEK, I TIFFANI PA Unavailable Unavailable DRAZEK, I TIFFANI PA Unavailable Unavailable DRAZEK, I TIFFANI PA Unavailable Unavailable DRAZEK, I TIFFANI PA Unavailable Unavailable DRAZEK, I TIFFANI PA Unavailable Unavailable DRAZEK, I TIFFANI PA Unavailable Unavailable DRAZEK, I TIFFANI PA Unavailable Unavailable DRAZEK, I TIFFANI PA Unavailable Unavailable DRAZEK, I TIFFANI PA Unavailable Unavailable DRAZEK, I TIFFANI PA Unavailable Unavailable DRAZEK, I TIFFANI PA Unavailable Unavailable DRAZEK, I TIFFANI PA Unavailable Unavailable DRAZEK, I TIFFANI PA Unavailable Unavailable DRAZEK, I TIFFANI PA Unavailable Unavailable DRAZEK, I TIFFANI PA Unavailable Unavailable DRAZEK, I TIFFANI PA Unavailable Unavailable DRAZEK, I TIFFANI PA Unavailable Unavailable DRAZEK, I TIFFANI PA Unavailable Unavailable DRAZEK, I TIFFANI PA Unavailable Unavailable DRAZEK, I TIFFANI PA Unavailable Unavailable Pleskach, Ann Marie RAND TACKER Unavailable Unavailable Pleskach, Ann Marie RAND TACKER Unavailable Unavailable Pleskach, Ann Marie RAND TACKER Unavailable Unavailable Pleskach, Ann Marie RAND TACKER Unavailable Unavailable Pleskach, Ann Marie RAND TACKER Unavailable Unavailable Pleskach, Ann Marie RAND TACKER Unavailable Unavailable Pleskach, Ann Marie RAND TACKER Unavailable Unavailable Pleskach, Ann Marie RAND TACKER Unavailable Unavailable Pleskach, Ann Marie RAND TACKER Unavailable Unavailable Pleskach, Ann Marie RAND TACKER Unavailable Unavailable Pleskach, Ann Marie RAND TACKER Unavailable Unavailable Pleskach, Ann Marie RAND TACKER Unavailable Unavailable Pleskach, Ann Marie RAND TACKER Unavailable Unavailable Pleskach, Ann Marie RAND TACKER Unavailable Unavailable Pleskach, Ann Marie RAND TACKER Unavailable Unavailable Pleskach, Ann Marie RAND TACKER Unavailable Unavailable Pleskach, Ann Marie RAND TACKER Unavailable Unavailable Pleskach, Ann Marie RAND TACKER Unavailable Unavailable Pleskach, Ann Marie RAND TACKER Unavailable Unavailable Pleskach, Ann Marie RAND TACKER Unavailable Unavailable Pleskach, Ann Marie RAND TACKER Unavailable Unavailable Pleskach, Ann Marie RAND TACKER Unavailable Unavailable Pleskach, Ann Marie RAND TACKER Unavailable Unavailable Pleskach, Ann Marie RAND TACKER Unavailable Unavailable Pleskach, Ann Marie RAND TACKER Unavailable Unavailable Pleskach, Ann Marie RAND TACKER Unavailable Unavailable Pleskach, Ann Marie RAND TACKER Unavailable Unavailable Pleskach, Ann Marie RAND TACKER Unavailable Unavailable Jesus Mancera MD Unavailable Unavailable Jesus Mancera MD Unavailable Unavailable Jesus Mancera MD Unavailable Unavailable Jesus Mancera MD Unavailable Unavailable Jesus Mancera MD Unavailable Unavailable Jesus Mancera MD Unavailable Unavailable Jesus Mancera MD Unavailable Unavailable Jesus Mancera MD Unavailable Unavailable Jesus Mancera MD Unavailable Unavailable Jesus Mancera MD Unavailable Unavailable Jesus Mancera MD Unavailable Unavailable Jesus Mancera MD Unavailable Unavailable Jesus Mancera MD Unavailable Unavailable Jesus Mancera MD Unavailable Unavailable Jesus Mancera MD Unavailable Unavailable Jesus Mancera MD Unavailable Unavailable Jesus Mancera MD Unavailable Unavailable Jesus Mancera MD Unavailable Unavailable Jesus Mancera MD Unavailable Unavailable Jesus Mancera MD Unavailable Unavailable Jesus Mancera MD Unavailable Unavailable Jesus Mancera MD Unavailable Unavailable Jesus Mancera MD Unavailable Unavailable Jesus Mancera MD Unavailable Unavailable Jesus Mancera MD Unavailable Unavailable Jesus Mancera MD Unavailable Unavailable Jesus Mancera MD Unavailable Unavailable Jesus Mancera MD Unavailable Unavailable Jesus Mancera MD Unavailable Unavailable Jesus Mancera MD Unavailable Unavailable Jesus Manceraah Unavailable Unavailable Jesus Mancera MD Unavailable Unavailable Jesus Mancera MD Unavailable Unavailable Jesus Mancera MD Unavailable Unavailable Jesus Mancera MD Unavailable Unavailable Jesus Mancera MD Unavailable Unavailable Jesus Mancera MD Unavailable Unavailable Jesus Manceraah Unavailable Unavailable Jesus Mancera MD Unavailable Unavailable Jesus Mancera MD Unavailable Unavailable Jesus Mancera MD Unavailable Unavailable Jesus Mancera MD Unavailable Unavailable Jesus Mancera MD Unavailable Unavailable Jesus Mancera MD Unavailable Unavailable Jesus Mancera MD Unavailable Unavailable Jesus Mancera MD Unavailable Unavailable Jesus Mancera MD Unavailable Unavailable Jesus Mancera MD Unavailable Unavailable Jesus Mancera MD Unavailable Unavailable Jesus Mancera MD Unavailable Unavailable Jesus Mancera MD Unavailable Unavailable Jesus Mancera MD Unavailable Unavailable Jesus Mancera MD Unavailable Unavailable Jesus Mancera MD Unavailable Unavailable Jesus Mancera MD Unavailable Unavailable Jesus Mancera MD Unavailable Unavailable Jesus Mancera MD Unavailable Unavailable Jesus Mancera MD Unavailable Unavailable Jesus Mancera MD Unavailable Unavailable Jesus Mancera MD Unavailable Unavailable Jesus Mancera MD Unavailable Unavailable Jesus Mancera MD Unavailable Unavailable Jesus Mancera MD Unavailable Unavailable Jesus Mancera MD Unavailable Unavailable Jesus Mancera MD Unavailable Unavailable Jesus Mancera MD Unavailable Unavailable Jesus Mancera MD Unavailable Unavailable Jesus Mancera MD Unavailable Unavailable Jesus Mancera MD Unavailable Unavailable Jesus Mancera MD Unavailable Unavailable Jesus Mancera MD Unavailable Unavailable Jesus Mancera MD Unavailable Unavailable Jesus Mancera MD Unavailable Unavailable Jesus Mancera MD Unavailable Unavailable Jesus Mancera MD Unavailable Unavailable Re-disclosure Warning The records that you are about to access may contain information from federally-assisted alcohol or drug abuse programs. If such information is present, then the following federally mandated warning applies: This information has been disclosed to you from records protected by federal confidentiality rules (42 CFR part 2). The federal rules prohibit you from making any further disclosure of this information unless further disclosure is expressly permitted by the written consent of the person to whom it pertains or as otherwise permitted by 42 CFR part 2. A general authorization for the release of medical or other information is NOT sufficient for this purpose. The Federal rules restrict any use of the information to criminally investigate or prosecute any alcohol or drug abuse patient.The records that you are about to access may contain highly sensitive health information, the redisclosure of which is protected by Article 27-F of the [facility] Public Health law. If you continue you may have access to information: Regarding HIV / AIDS; Provided by facilities licensed or operated by the [facility] Office of Mental Health; or Provided by the [facility] Office for People With Developmental Disabilities. If such information is present, then the following [facility] mandated warning applies: This information has been disclosed to you from confidential records which are protected by state law. State law prohibits you from making any further disclosure of this information without the specific written consent of the person to whom it pertains, or as otherwise permitted by law. Any unauthorized further disclosure in violation of state law may result in a fine or fdc sentence or both. A general authorization for the release of medical or other information is NOT sufficient authorization for further disc losure. Allergies and Adverse Reactions Type Description Substance Reaction Status Data Source(s ) Drug allergy latex Latex [facility] Drug allergy streptomycin streptomycin [facility] Family History Family Member Name Family Member Gender Family Member Status Date o f Status Description Data Source(s) Unknown Condition [facility] Encounters Encounter Providers Location Date Indications Data Source(s ) Outpatient Attender: Ariana Mancera MD Main office - [facility] 02/21/2020 10:15:00 AM EST [facility] ([facility]) Outpatient Attender: Ann Marie Yung [facility] Main Office 12/27/2019 0 1:00:00 PM EST [facility] ([facility] Office Visit Attender: TIFFANI MART Physical Therapy 2019 04:30:00 PM EDT [facility] ([facility]) Outpatient Attender: Ariana Mancera MD Main office - [facility] 11/06/2019 01:00:00 PM EDT [facility] ([facility] Outpatient Attender: TIFFANI MART Physical Therapy 10/26/2019 0 1:00:00 PM EDT [facility] ([facility]) Outpatient Attender: Ann Marie Yung [facility] Main Office 10/26/2019 1 1:45:00 AM EDT [facility] ([facility] Outpatient Attender: Jessika Gipson MD 10/17/2019 10:24:00 AM EDT lab [address] [facility] Outpatient Attender: Ariana Mancera MD Main office - [facility] 09/25/2019 01:00:00 PM EDT [facility] ([facility] Outpatient Attender: Ann Marie Yung [facility] Main Office 07/25/2019 0 2:40:00 PM EDT [facility] ([facility] Outpatient Attender: Ann Marie Yung [facility] Main Office 06/01/2019 1 1:00:00 AM EDT [facility] ([facility] Outpatient<td ID="encounterTypeDescripti onID0">1 Year Follow-Up</td><td>Cristhian Lechuga MD, FACS</td><td>Cristhian Lechuga MD [facility]</td><td>04/04/2019</td><td> <content ID="encounterDiagnosisID0-0">Dry Eye Syndrome</content>, <content ID="encounterDiagnosisID0-1">History of Nicotine Dependence</content>, <content ID="encounterDiagnosisID0-2">Essential Hypertension</content>, <content ID="encounterDiagnosisID0-3">Macular Puckering</content>, <content ID="encounterDiagnosisID0-4">Posterior Capsule Opacification Eccentric Capsule Left Eye</content>, <content ID="encounterDiagnosisID0-5">Pseudophakia</content></td> Attender: Cristhian Del Real MD, FACS Cristhian Lechuga MD [facility] 04/04/2019 01:47:00 PM EST - 04/04/2019 02:19:00 PM EST Posterior Capsule Opacification Eccentri c Capsule Left EyeMacular PuckeringDry Eye SyndromePseudophakiaHistory of Nicotine DependenceEssential Hypertension [facility] (Cristhian Del Real MD [facility]) Posterior Capsule Opacification Eccentri c Capsule Left Eye Macular Puckering Dry Eye Syndrome Pseudophakia History of Nicotine Dependence Essential Hypertension Emergency Attender: Monserrat Fernandez MD 03/25/19 03:21:00 PM EST - 03/25/2019 06:05:00 PM EST CSQ UC/Fall Injuries [facility] CSQ UC/Fall Injuries Patient discharged. Outpatient Attender: Gabriel Gregorio MD Physical Therapy 12:45:00 PM EST [facility] ([facility] Outpatient Attender: Ariana Mancera MD Main office [facility] 02/27/2019 11:00:00 AM EST [facility] ([facility]) Outpatient Attender: Ankita MART Main Office 01/25/2019 04:00:00 PM EST [facility] ([facility] Medications Medication Brand Name Start Date Product Form Dose Route Admi nistrative Instructions Pharmacy Instructions Status Indications Reaction Description Data Source(s) duloxetine 40 MG Delayed Release Oral Capsule Duloxetine HCL 12/27/2019 12:00:00 AM EST active [facility] ([facility] Mupirocin 0.02 MG/MG Topical Ointment Mupirocin 12/27/2019 12:00:00 AM EST active [facility] ([facility] duloxetine 20 MG Delayed Release Oral Capsule Duloxetine HCL 07/10/2019 12:00:00 AM EDT active [facility] duloxetine 20 MG Delayed Release Oral Capsule Duloxetine HCL 07/10/2019 12:00:00 AM EDT completed [facility] ([facility] duloxetine 30 MG Delayed Release Oral Capsule Duloxetine HCL 05/31/2019 12:00:00 AM EDT ORAL completed [facility] ([facility] duloxetine 30 MG Delayed Release Oral Capsule Duloxetine HCL 05/31/2019 12:00:00 AM EDT ORAL completed [facility] ([facility]) duloxetine Duloxetine Duloxetine 03/25/2019 03:35:00 PM EST UNASSIGNE D UNASSIGNED active [facility] Potassium Chloride 10 MEQ Extended Release Oral Capsule Pota ssium Chloride 03/25/2019 03:35:00 PM EST UNASSIGNED UNASSIGNED active [facility] Trazodone Hydrochloride 50 MG Oral Tablet Trazodone 2019 03:35:00 PM EST TABLET TABLET active [facility] Memantine hydrochloride 5 MG Oral Tablet Memantine 03:35:00 PM EST TABLET TABLET active [facility] atorvastatin 20 MG Oral Tablet Atorvastatin Atorvastatin 03/25/2019 03:35:00 PM EST TABLET TABLET active [facility] prednisolone acetate 10 MG/ML Ophthalmic Suspension [Pred Forte] Pred Forte 1% Ophthalmic Suspension Pred Forte 1% Ophthalmic Suspension 11/29/2017 12:00:0 0 AM EDT aborted predniso lone acetate 10 MG/ML Ophthalmic Suspension [Pred Forte] [facility] (Cristhian Del Real MD [facility]) Amoxicillin 500 MG / Clavulanate 125 MG Oral Tablet [Augmentin] Augmentin 500- 125 MG Tablet Augmentin 500-125 MG Tablet 06/23/2015 12:00:00 AM EDT 1 aborted Amoxicillin 500 MG / Clavulanate 125 MG Oral Tablet [Augmentin] [facility] (Cristhian Del Real MD [facility]) tramadol hydrochloride 50 MG Oral Tablet Tramadol Tramadol 07/27/2013 05:56:00 PM EDT TABLET 50 MG [facility] Sim[facility] 20 MG Oral Tablet Simvastatin 07/27/2013 05:14:00 PM E DT TABLET 20 MG [facility] Loratadine 10 MG Oral Tablet Loratadine 07/27/2013 05:14:00 PM EDT TA BLET 10 MG ORAL completed [facility] Sertraline 100 MG Oral Tablet Sertraline 07/27/2013 05:14:00 PM E DT TABLET 100 MG ORAL completed [employer] Milk thistle extract 500 MG Oral Capsule Milk Thistle Milk T histle 07/27/2013 05:14:00 PM EDT CAPSULE 1000 MG ORAL completed [facility] Sucralfate 1000 MG Oral Tablet Sucralfate 1 GM OR TABS Sucra lfate 1 GM OR TABS 05/17/2013 12:00:00 AM EDT aborted Sucralfate 1000 MG Oral Tablet [facility] (Cristhian Del Real MD [facility]) Insurance Providers Payer name Policy type / Coverage type Policy ID Covered libertarian ID Covered libertarian's relationship to saleem Policy Saleem Plan Information AETNA MEDICARE [id number] SP MEBPM [id number] AETNA MEDICARE O [id number] O MEBPM J7Y AETNA MEDICARE O [id number] S MEBPM J7Y AETNA MEDICARE [id number] SP MEBPM J7Y SELF PAY AETNA MEDICARE ADV [id number] SP M [id number] SELF PAY AETNA MEDICARE ADV [id number] SP M [id number] AETNA MEDICARE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 97.5 F L Pulse Rate 84 Respiratory Rate 18 Blood Pressure 152/65 H O2 Sat by Pulse Oximetry 97 Medical Decision Making/CCT Medication/Allergies Review Medication/Allergies Review Home Medication and Allergy review: I reviewed patients allergies, home medications, and new prescriptions Blood Pressure Blood pressure: Pt BP elevated has following urgent/emergent condition, without HX HTN Medical Decision Making Medical Decision Making: At this time, patient had a CT scan of the brain and head as well as facialbones completed. The patient has fractures to the nasal bones. There was no indication of fractureor brain bleed. The patient had x-rays of the right knee ankle and foot completed which are all negative at this time for any fracture dislocation. Patient was given an Torin wrap to the ankle. Advised use rest ice elevation Tylenol for relief of symptoms and follow up with PCP if symptoms notimproved. If symptoms change or worsen way the patient is to be seen again. Patient has a good understanding of their diagnosis, medications and side effects, and discharge plan. All questions have been answered. Patient is agreeable to discharge and plan of care. They're stable for discharge at this time. Discharge Plan Disposition Clinical Impression: Closed fracture nasal bone, Ankle sprain, Contusion, Fall Provider stated Dispo: Discharged Condition: Stable Instructions: Ankle Sprain (ED), Contusion in Adults (ED) Activity Restrictions/Additional Instructions: At this time, your x-ray of the facial bones identifies nasal bone fractures. At this time they do not appear to be significantly displaced. All other imaging completed does not have any acute abnormal TS noted requiring immediate intervention at this time. Please follow up with the regular doctor. Use rest ice elevation and Tylenol for any complaints. If symptoms change or worsen way need to be seen again immediately. Prescriptions: No Action oxybutynin chloride 10 MG tablet extended release 24hr 10 mg PO DAILY RF: 0 omeprazole 40 MG capsule,delayed release(DR/EC) 40 mg PO DAILY RF: 0 losartan 25 MG tablet 25 mg PO DAILY RF: 0 multivitamin 1 EACH capsule 1 ea PO DAILY RF: 0 cholecalciferol (vitamin D3) [Vitamin D3] 2,000 UNIT capsule 5,000 unit PO DAILY RF: 0 potassium chloride 10 mEq capsule, extended release RF: 0 atorvastatin 20 mg Tablet RF: 0 trazodone 50 mg Tablet RF: 0 memantine 5 mg tablet RF: 0 duloxetine 20 mg Capsule, Delayed Rel Sprinkle RF: 0 Referrals: Ankita Johnson PA [Primary Care Provider] - Discharge Date/Time: 03/25/19 18:05 Provider in triage note Vital Signs Vital Signs: Vital Signs (Last 8 Hours) Temp Pulse Resp BP Pulse Ox 03/25/19 15:39 97.5 F L 84 18 152/65 H 97 Date/Time <<Signature on File>> Initializing User: Xin Lechuga NP 03/25/19 1711 Signed by: Xin Lechuga NP 03/25/19 2044 Monserrat Fernandez MD 03/28/19 0853 Name Value Range Interpretation Code Description Data Tami rce(s) Supporting Document(s) ID Date Data Source [id number] 03/25/2019 04:55:00 [place] [address] Patient Name: Clarissa Witt Exam Date: 03/25/19 : 1935 Ordering Doctor: Xin Lechuga NP Attending Doctor: Monserrat Fernandez MD CC: Right knee, three views HISTORY: Trauma, pain COMPARISON: None FINDINGS: No acute fracture or significant joint effusion is seen. The joint space is preserved. IMPRESSION: No acute fracture or significant joint effusion. K6 End of diagnostic report: [id number] Signed: Myesha Munoz MD 03/25/19 1745 Interpreted by: Myesha MunozTranscribed by: Myesha Munoz Name Value Range Interpretation Code Description Data Tami rce(s) Supporting Document(s) ID Date Data Source [id number] 03/25/2019 04:55:00 [place] [address] Patient Name: Clarissa Witt Exam Date: 03/25/19 : 1935 Ordering Doctor: Xin Lechuga NP Attending Doctor: Monserrat Fernandez MD CC: Right ankle, minimum three views HISTORY: Fall, pain COMPARISON: None FINDINGS: The ankle mortise is symmetric. No evidence of acute fracture or dislocation is seen. IMPRESSION: No acute fracture or dislocation is seen. K6 End of diagnostic report: [id number] Signed: Myesha Munoz MD 03/25/19 1737 Interpreted by: Myesha MunozTranscribed by: Myesha Munoz Name Value Range Interpretation Code Description Data Tami rce(s) Supporting Document(s) ID Date Data Source [id number] 03/25/2019 04:55:00 [place] [address] Patient Name: Clarissa Witt Exam Date: 03/25/19 : 1935 Ordering Doctor: Xin Lechuga NP Attending Doctor: Monserrat Fernandez MD CC: Right foot, minimum three views HISTORY: Trauma, pain, fall COMPARISON: 07/27/2013 FINDINGS: No acute fracture or dislocation is identified. Plantar calcaneal enthesopathy is noted. No significant soft tissue swelling is seen. IMPRESSION: No acute abnormality is seen. K6 End of diagnostic report: [id number] Signed: Myesha Munoz MD 03/25/19 1739 Interpreted by: Myesha MunozTranscribed by: Myesha Munoz Name Value Range Interpretation Code Description Data Tami rce(s) Supporting Document(s) ID Date Data Source [id number] 03/25/2019 04:45:00 [place] [address] Patient Name: Clarissa Witt Exam Date: 03/25/19 : 1935 Ordering Doctor: Xin Lechuga NP Attending Doctor: Monserrat Fernandez MD CC: CT BRAIN WITHOUT CONTRAST CLINICAL STATEMENT: Fall TECHNIQUE: Multiple noncontrast images were obtained through the brain from the base of skull to the vertex without intravenous contrast. COMPARISON: None FINDINGS: No acute major vascular territory infarct or intracranial hemorrhage is seen. Tian-white matter differentiation is intact. Mild low-attenuation is seen throughout the periventricular and subcortical white matter, nonspecific however most likely sequela of chronic small vessel ischemic disease. No midline shift or mass effect is seen. The ventricles and sulci are prominent, compatible with diffuse volume loss. There is no intra or extra-axial fluid collection. The calvarium is intact. The patient appears to be status post bilateral intraocular lens replacement. The visualized paranasal sinuses appear unremarkable. Mastoid air cells are clear. IMPRESSION: No acute intracranial abnormality is seen. Diffuse volume loss and mild sequela of chronic small vessel ischemic disease. K6 End of diagnostic report: [id number] Signed: Myesha Munoz MD 03/25/19 1713 Interpreted by: Myesha MunozTranscribed by: Myesha Munoz Name Value Range Interpretation Code Description Data Tami rce(s) Supporting Document(s) ID Date Data Source [id number] 03/25/2019 04:30:00 [place] [address] Patient Name: Clarissa Witt Exam Date: 03/25/19 : 1935 Ordering Doctor: Xin Lechuga NP Attending Doctor: Monserrat Fernandez MD CC: CT MAXILLOFACIAL BONES WITHOUT CONTRAST. HISTORY: Fall, pain, swelling TECHNIQUE: Multiple axial images were obtained through the maxillofacial bones without intravenous contrast. Sagittal and coronal reformatted images were provided. COMPARISON: None FINDINGS: There are minimally to nondisplaced lucencies involving the nasal bones, which may represent age-indeterminate nondisplaced fractures. Very mild localized soft tissue swelling is seen in this location. The left nasal bone deformity is slightly depressed. The frontal, ethmoid, sphenoid, and maxillary sinuses are well aerated. Visualized mastoid air cells are clear. The patient is status post bilateral intraocular lens replacement. No significant pre- or postseptal soft tissue swelling is seen. IMPRESSION: Minimally and nondisplaced bilateral nasal bone deformities, which are age indeterminate however may represent acute fractures in this clinical setting. K6 End of diagnostic report: [id number] Signed: Myesha Munoz MD 03/25/19 1702 Interpreted by: Myesha MunozTranscribed by: Myesha Munoz Name Value Range Interpretation Code Description Data Tami rce(s) Supporting Document(s) Procedure Social History Code Duration Value Status Description Data Source(s ) Smoking 12/27/2019 12:00:00 AM EST Patient is a former smoker completed Patient is a former smoker [facility] ([facility] Smoking 04/04/2019 02:21:23 PM EST Ex-smoker (finding) [facility] ed Ex-smoker (finding) [facility] (Cristhian Del Real [facility]) 03/25/2019 05:18:00 PM EST Never Smoker completed [facility] Smoking 03/25/2019 05:18:00 PM EST Never smoked tobacco (findi ng) completed Never smoked tobacco [facility]finding) [facility] Vital Signs ID Date Data Source UNK Name Value Range Interpretation Code Description Data Source(s) Central body weight 130 [lb_av] 130 [lb_av] [facility] ([facility], ) Body mass index (BMI) [Ratio] 25.8 kg/m2 25.8 k g/m2 [facility] Body weight 160.00 [lb_av] 160.00 [lb_av] [facility] ([facility], ) Body height 66 [in_i] 66 [in_i] [facility] ([facility], ) 5'6" Respiratory rate 12 /min 12 /min [facility] ( [facility]) Body mass index (BMI) [Ratio] 25.2 kg/m2 25.2 k g/m2 [facility] ([facility] Central body weight 125 [lb_av] 125 [lb_av] [facility] ([facility] Oxygen saturation in Arterial blood by Pulse oximetry 98 % 98 % [facility] ([facility] Body weight 151.50 [lb_av] 151.50 [lb_av] [facility] ([facility] Body height 65 [in_i] 65 [in_i] [facility] ([facility] 5'5" Respiratory rate 17 /min 17 /min [facility] ( [facility] Body temperature 97.1 [degF] 97.1 [degF] [facility] ([facility] Heart rate 84 /min 84 /min [facility] ([facility] Diastolic blood pressure 82 mm[Hg] 82 mm[Hg] [facility] ([facility] Systolic blood pressure 144 mm[Hg] 144 mm[Hg] [facility] ([facility] Diastolic blood pressure 100 mm[Hg] 100 mm[Hg] [facility] ([facility] Systolic blood pressure 166 mm[Hg] 166 mm[Hg] [facility] ([facility] Central body weight 130 [lb_av] 130 [lb_av] [facility] ([facility], ) Body mass index (BMI) [Ratio] 23.7 kg/m2 23.7 k g/m2 [facility] ([facility], ) Body weight 147.00 [lb_av] 147.00 [lb_av] [facility] ([facility], ) Body height 66 [in_i] 66 [in_i] [facility] ([facility], ) 5'6" Respiratory rate 12 /min 12 /min [facility] ( [facility], ) Body mass index (BMI) [Ratio] 22.9 kg/m2 22.9 k g/m2 [facility] ([facility] ) Body weight 142.00 [lb_av] 142.00 [lb_av] [facility] ([facility] ) Body height 66 [in_i] 66 [in_i] [facility] ([facility]) 5'6" Body temperature 97.3 [degF] 97.3 [degF] [facility] ([facility]) Body height 65 [in_i] 65 [in_i] [facility] ([facility]) Central body weight 125 [lb_av] 125 [lb_av] [facility] ([facility] Oxygen saturation in Arterial blood by Pulse oximetry 98 % 98 % [facility] ([facility] Body height 65 [in_i] 65 [in_i] [facility] ([facility] 5'5" Respiratory rate 18 /min 18 /min [facility] ( [facility] Body temperature 97.7 [degF] 97.7 [degF] [facility] ([facility] Heart rate 128 /min 128 /min [facility] ([facility] Diastolic blood pressure 59 mm[Hg] 59 mm[Hg] [facility] ([facility] Systolic blood pressure 81 mm[Hg] 81 mm[Hg] [facility] ([facility] Body mass index (BMI) [Ratio] 23.7 kg/m2 23.7 k g/m2 [facility] ([facility], ) Body weight 147.00 [lb_av] 147.00 [lb_av] [facility] ([facility], ) Body height 66 [in_i] 66 [in_i] [facility] ([facility], ) 5'6" Respiratory rate 12 /min 12 /min [facility] ( [facility], ) Body mass index (BMI) [Ratio] 24.4 kg/m2 24.4 k g/m2 [facility] ([facility] Central body weight 125 [lb_av] 125 [lb_av] [facility] ([facility] Oxygen saturation in Arterial blood by Pulse oximetry 98 % 98 % [facility] ([facility] Body weight 146.56 [lb_av] 146.56 [lb_av] [facility] ([facility] Body height 65 [in_i] 65 [in_i] [facility] ([facility] 5'5" Respiratory rate 16 /min 16 /min [facility] ( [facility] Body temperature 97.5 [degF] 97.5 [degF] [facility] ([facility] Heart rate 89 /min 89 /min [facility] ([facility] Diastolic blood pressure 86 mm[Hg] 86 mm[Hg] [facility] ([facility] Systolic blood pressure 138 mm[Hg] 138 mm[Hg] [facility] Body mass index (BMI) [Ratio] 23.7 kg/m2 23.7 k g/m2 [facility] ([facility], ) Body weight 147.00 [lb_av] 147.00 [lb_av] [facility] ([facility], ) Body height 66 [in_i] 66 [in_i] [facility] ([facility], ) 5'6" Respiratory rate 12 /min 12 /min [facility] ( [facility], ) Diastolic blood pressure 65 mm[Hg] 65 mm[Hg] [facility] Systolic blood pressure 152 mm[Hg] 152 mm[Hg] O [facility] Oxygen saturation in Arterial blood by Pulse oximetry 97 % 97 % [facility] Respiratory rate 18 /min 18 /min [facility] Heart rate 84 /min 84 /min [facility] Body temperature 97.5 [degF] 97.5 [degF] [facility] Body mass index (BMI) [Ratio] 25.5 kg/m2 25.5 k g/m2 [facility] ([facility]) Body weight 158.00 [lb_av] 158.00 [lb_av] [facility] ([facility]) Body height 66 [in_i] 66 [in_i] [facility] ([facility]) 5'6" Respiratory rate 12 /min 12 /min [facility] ( [facility]) Heart rate 80 /min 80 /min [facility] ([facility]) Diastolic blood pressure 62 mm[Hg] 62 mm[Hg] [facility] ([facility]) Systolic blood pressure 110 mm[Hg] 110 mm[Hg] M [facility] ([facility]) Body mass index (BMI) [Ratio] 24.5 kg/m2 24.5 k g/m2 [facility] ([facility] Oxygen saturation in Arterial blood by Pulse oximetry 98 % 98 % [facility] ([facility] Body weight 147.38 [lb_av] 147.38 [lb_av] [facility] ([facility] Body height 65 [in_i] 65 [in_i] [facility] ([facility] 5'5" Respiratory rate 17 /min 17 /min [facility] ( [facility] Body temperature 97.3 [degF] 97.3 [degF] [facility] Heart rate 83 /min 83 /min [facility] ([facility] Diastolic blood pressure 88 mm[Hg] 88 mm[Hg] [facility] ([facility] Systolic blood pressure 142 mm[Hg] 142 mm[Hg] [facility] ([facility] Diastolic blood pressure 82 mm[Hg] 82 mm[Hg] [facility] ([facility] ra Systolic blood pressure 143 mm[Hg] 143 mm[Hg] [facility] ([facility] ra Patient Treatment Plan of Care Planned Activity Planned Date Details Description Data Source (s) prednisolone acetate 10 MG/ML Ophthalmic Suspension [P red Forte] 11/29/2017 12:00:00 AM [facility] ([facility]) Amoxicillin 500 MG / Clavulanate 125 MG Oral Tablet [A ugmentin] 06/23/2015 12:00:00 AM [facility] (Cristhian Del Real MD [facility])
--- NOTE | 2020-03-03 15:20 | REP ---
INDICATION: CONSTIPATION. COMPARISON: Comparison abdominal radiographs are from April 28, 2017.. TECHNIQUE: KUB: Two views. FINDINGS: Supine views of the abdomen demonstrate clips in right upper quadrant and L4-5 lumbar spine fixation hardware. There is a moderate to large amount of formed stool throughout the left colon and transverse colon segments consistent with constipation/obstipation. There is formed stool in the rectum although the rectum does not appear dilated. No mass or organomegaly is seen. IMPRESSION: Moderate to large amount of formed stool consistent with constipation/obstipation. Postoperative changes. Otherwise no acute abnormality. <Electronically signed by Sivakumar Ramos > 03/03/20 0869
[2020-03-03] MEDS ORDERED: MAGNESIUM CITRATE 300 ML BTL PO ONE (15:45)
[2020-03-03] MEDS ORDERED: GLYCERIN ADULT SUPP PR ONE (15:45)
--- OUTSIDE RECORDS SUMMARY | 2020-03-03 15:59 | CCD ---
Author Author [facility] Organization [facility] Address Unknown Phone Unavailable Care Team Providers [employer] Attendant Name Role Phone Avinash Fernandez MD Unavailable [...] Darcy Rosen MD Unavailable Unavailable Brandan, Darcy Rsoen MD Unavailable Unavailable Brandan, Darcy Rosen MD [...] Unavailable Cristhian Gregorio MD Unavailable Unavailable Cristhian Gregoiro MD Unavailable Unavailable Cristhian Gregorio MD Unavailable [...] TIFFANI PA Unavailable Unavailable Pleskach, Ann Marie HYDRAULIC JACK MECHANIC Unavailable Unavailable Pleskach, Ann Marie HYDRAULIC JACK MECHANIC Unavailable Unavailable Pleskach, Ann Marie HYDRAULIC JACK MECHANIC Unavailable Unavailable Pleskach, Ann Marie HYDRAULIC JACK MECHANIC Unavailable Unavailable Pleskach, Ann Marie HYDRAULIC JACK MECHANIC Unavailable Unavailable Pleskach, Ann Marie HYDRAULIC JACK MECHANIC Unavailable Unavailable Pleskach, Ann Marie HYDRAULIC JACK MECHANIC Unavailable Unavailable Pleskach, Ann Marie HYDRAULIC JACK MECHANIC Unavailable Unavailable Pleskach, Ann Marie HYDRAULIC JACK MECHANIC Unavailable Unavailable Pleskach, Ann Marie HYDRAULIC JACK MECHANIC Unavailable Unavailable Pleskach, Ann Marie HYDRAULIC JACK MECHANIC Unavailable Unavailable Pleskach, Ann Marie HYDRAULIC JACK MECHANIC Unavailable Unavailable Pleskach, Ann Marie HYDRAULIC JACK MECHANIC Unavailable Unavailable Pleskach, Ann Marie HYDRAULIC JACK MECHANIC Unavailable Unavailable Pleskach, Ann Marie HYDRAULIC JACK MECHANIC Unavailable Unavailable Pleskach, Ann Marie HYDRAULIC JACK MECHANIC Unavailable Unavailable Pleskach, Ann Marie HYDRAULIC JACK MECHANIC Unavailable Unavailable Pleskach, Ann Marie HYDRAULIC JACK MECHANIC Unavailable Unavailable Pleskach, Ann Marie HYDRAULIC JACK MECHANIC Unavailable Unavailable Pleskach, Ann Marie HYDRAULIC JACK MECHANIC Unavailable Unavailable Pleskach, Ann Marie HYDRAULIC JACK MECHANIC Unavailable Unavailable Pleskach, Ann Marie HYDRAULIC JACK MECHANIC Unavailable Unavailable Pleskach, Ann Marie HYDRAULIC JACK MECHANIC Unavailable Unavailable Pleskach, Ann Marie HYDRAULIC JACK MECHANIC Unavailable Unavailable Pleskach, Ann Marie HYDRAULIC JACK MECHANIC Unavailable Unavailable Pleskach, Ann Marie HYDRAULIC JACK MECHANIC Unavailable Unavailable Pleskach, Ann Marie HYDRAULIC JACK MECHANIC Unavailable Unavailable Pleskach, Ann Marie HYDRAULIC JACK MECHANIC Unavailable Unavailable Jesus Mancera MD Unavailable Unavailable [...] Unavailable Unavailable Jesus Mancera MD Unavailable Unavailable Jessu Mancera MD Unavailable Unavailable Jesus Mancera MD [...] is protected by Article 27-F of the [facility] Public Health law. If you continue you may have access to information: Regarding HIV / AIDS; Provided by facilities licensed or operated by the [facility] Office of Mental Health; or Provided by the [facility] Office for People With Developmental Disabilities. If such information is present, then the following [facility] mandated warning applies: This information has been [...] law may result in a fine or chcf sentence or both. A general authorization for the release of medical or other information is NOT sufficient authorization for further disc losure. Allergies and Adverse Reactions Type Description Substance Reaction Status Data Source(s ) Drug allergy latex Latex [facility] Drug allergy streptomycin streptomycin [facility] Family History Family Member Name Family Member Gender Family Member Status Date o f Status Description Data Source(s) Unknown Condition [facility] Encounters Encounter Providers Location Date Indications Data Source(s ) Outpatient Attender: Ariana Mancera MD Main office - [facility] 02/21/2020 10:15:00 AM EST [facility] ([facility]AN[facility] Ju[facility]rez) Outpatient Attender: Ann Marie Yung [facility] Main Office 12/27/2019 0 1:00:00 PM EST [facility] ([facility] Office Visit Attender: TIFFANI MART Physical Therapy 2019 04:30:00 PM EDT [facility] ([facility]) Outpatient Attender: Ariana Mancera MD Main office - [facility] 11/06/2019 01:00:00 PM EDT [facility] ([facility] Outpatient Attender: TIFFANI MART Physical Therapy 10/26/2019 0 1:00:00 PM EDT [facility] ([facility]) Outpatient Attender: Ann Marie Yung [facility] Main Office 10/26/2019 1 1:45:00 AM EDT [facility] ([facility] Outpatient Attender: Jessika Gipson MD 10/17/2019 10:24:00 AM EDT lab [address] lab 1 [facility] Outpatient Attender: Ariana Mancera MD Main office - [facility] 09/25/2019 01:00:00 PM EDT [facility] ([facility]) Outpatient Attender: Ann Marie Yung [facility] Main Office 07/25/2019 0 2:40:00 PM EDT [facility] ([facility] Outpatient Attender: Ann Marie Yung [facility] Main Office 06/01/2019 1 1:00:00 AM EDT [facility] ([facility] Outpatient<td ID="encounterTypeDescripti onID0">1 Year Follow-Up</td><td>Cristhian Lechuga MD, FACS</td><td>Cristhian Lechuga MD [facility]</td><td>04/04/2019</td><td> <content ID="encounterDiagnosisID0-0">Dry Eye Syndrome</content>, <content ID="encounterDiagnosisID0-1">History of Nicotine Dependence</content>, <content ID="encounterDiagnosisID0-2">Essential Hypertension</content>, <content ID="encounterDiagnosisID0-3">Macular Puckering</content>, <content ID="encounterDiagnosisID0-4">Posterior Capsule Opacification Eccentric Capsule Left Eye</content>, <content ID="encounterDiagnosisID0-5">Pseudophakia</content></td> Attender: Cristhian Del Real MD, FACS Cristhian Lechuga MD [facility] 04/04/2019 01:47:00 PM EST - 04/04/2019 02:19:00 PM EST Posterior Capsule Opacification Eccentri c Capsule Left EyeMacular PuckeringDry Eye SyndromePseudophakiaHistory of Nicotine DependenceEssential Hypertension [facility] (Cristhian Del Real MD [facility]) Posterior Capsule Opacification Eccentri c Capsule Left Eye Macular Puckering Dry Eye Syndrome Pseudophakia History of Nicotine Dependence Essential Hypertension Emergency Attender: Monserrat Fernandez MD 03/25/19 03:21:00 PM EST - 03/25/2019 06:05:00 PM EST CSQ UC/Fall Injuries [facility] CSQ UC/Fall Injuries Patient discharged. Outpatient Attender: Gabriel Gregorio MD Physical Therapy 12:45:00 PM EST [facility] ([facility] Outpatient Attender: Ariana Mancera MD Main office [facility] 02/27/2019 11:00:00 AM EST [facility] ([facility]) Outpatient Attender: Ankita [...] 07/10/2019 12:00:00 AM EDT active [facility] ([facility]) duloxetine 20 MG Delayed Release Oral Capsule Duloxetine HCL 07/10/2019 12:00:00 AM EDT completed [facility] ([facility] duloxetine 30 MG Delayed Release Oral Capsule Duloxetine HCL 05/31/2019 12:00:00 AM EDT ORAL completed [facility] ([facility] duloxetine 30 MG Delayed Release Oral Capsule Duloxetine HCL 05/31/2019 12:00:00 AM EDT ORAL completed [facility] ([facility]) duloxetine Duloxetine Duloxetine 03/25/2019 03:35:00 PM EST UNASSIGNE D UNASSIGNED active [facility] Potassium Chloride 10 MEQ Extended Release Oral Capsule Pota ssium Chloride 03/25/2019 03:35:00 PM EST UNASSIGNED UNASSIGNED active [facility] Trazodone Hydrochloride 50 MG Oral Tablet Trazodone 2019 03:35:00 PM EST TABLET TABLET active [facility] Memantine hydrochloride 5 MG Oral Tablet Memantine 03:35:00 PM EST TABLET TABLET active [facility] atorvastatin 20 MG Oral Tablet Atorvastatin Atorvastatin 03/25/2019 03:35:00 PM EST TABLET TABLET active [facility] prednisolone acetate 10 MG/ML Ophthalmic Suspension [Pred Forte] Pred Forte 1% Ophthalmic Suspension Pred Forte 1% Ophthalmic Suspension 11/29/2017 12:00:0 0 AM EDT aborted predniso lone acetate 10 MG/ML Ophthalmic Suspension [Pred Forte] [facility] (Cristhian Del Real MD [facility]) Amoxicillin 500 MG / Clavulanate 125 MG Oral Tablet [Augmentin] Augmentin 500- 125 MG Tablet Augmentin 500-125 MG Tablet 06/23/2015 12:00:00 AM EDT 1 aborted Amoxicillin 500 MG / Clavulanate 125 MG Oral Tablet [Augmentin] [facility] (Cristhian Del Real MD [facility]) tramadol hydrochloride 50 MG Oral Tablet Tramadol Tramadol 07/27/2013 05:56:00 PM EDT TABLET 50 MG [facility] Sim[facility] 20 MG Oral Tablet Simvastatin 07/27/2013 05:14:00 PM E DT TABLET 20 MG [facility]AL [facility] Loratadine 10 MG Oral Tablet Loratadine 07/27/2013 05:14:00 PM EDT TA BLET 10 MG ORAL completed [facility] Sertraline 100 MG Oral Tablet Sertraline 07/27/2013 05:14:00 PM E DT TABLET 100 MG [facility]AL [facility] Milk thistle extract 500 MG Oral Capsule Milk Thistle Milk T histle 07/27/2013 05:14:00 PM EDT CAPSULE 1000 MG ORAL [facility] Sucralfate 1000 MG Oral Tablet Sucralfate 1 GM OR TABS Sucra lfate 1 GM OR TABS 05/17/2013 12:00:00 AM EDT aborted Sucralfate 1000 MG Oral Tablet [facility] (Cristhian Del Real MD [facility]) Insurance Providers Payer name Policy type / Coverage type Policy ID Covered republican ID Covered republican's relationship to saleem Policy Saleem Plan Information AETNA MEDICARE [id number] SP MEBPM [id number] AETNA MEDICARE O [id number] O MEBPM J7Y AETNA MEDICARE O [id number] S MEBPM J7Y AETNA MEDICARE [id number] SP MEBPM [id number] SELF PAY AETNA MEDICARE ADV [id number] SP M [id number] SELF PAY AETNA MEDICARE ADV [id number] SP M [id number] AETNA MEDICARE [id number] SP MEBPM J7Y AETNA MEDICARE [id number] SP MEBPM J7Y Aetna Medicare Commercial [id number] Self MEBP [id number] Medicare Blue Ppo Commercial [id number] Self [id number] Aetna Medigap Part [id number] Self MEBPM J7Y Medicare [place] Medicare Primary [id number] Self [id number] AETNA MEDICARE [id number] SP MEBPM [id number] Aetna Medicare Commercial [id number] Self MEBP [id number] Aetna Medicare Commercial [id number] Self MEBP [id number] SELF PAY AETNA MEDICARE ADV [id number] SP M [id number] SELF PAY AETNA MEDICARE ADV [id number] SP M [id number] SELF PAY AETNA MEDICARE ADV [id number] SP M [id number] AETNA MEDICARE COMPLETE G [id number] Self [id number] AETNA MEDICARE COMPLETE G [id number] Self [id number] Aetna Medicare Commercial [id number] Self MEBP [id number] SELF PAY AETNA MEDICARE ADV [id number] SP M [id number] SELF PAY AETNA MEDICARE ADV [id number] SP M [id number] Aetna Medicare Commercial [id number] Self MEBP [id number] Aetna ([facility]) Commercial [id number] Self [id number] Y AETNA MEDICARE [id number] Commercial Insurance [id number] ID IDENTIFICATION [id number] Other In surance [id number] Aetna ([facility]) Commercial [id number] Self [id number] Y AETNA MEDICARE O [id number] S MEBPM J7Y Aetna ([facility]) Commercial [id number] Self [id number] Y Aetna ([facility]) Commercial [id number] Self [id number] Y Aetna Medicare Commercial [id number] Self MEBP [id number] Aetna ([facility]) Commercial [id number] Self [id number] Y Aetna Medicare Commercial [id number] Self MEBP [id number] AETNA MEDICARE [id number] Gisel MEBPM J7Y AETNA MEDICARE Medicare MC MC Aetna Medicare [id number] Commercial Insurance [id number] AETNA MEDICARE COMPLETE G [id number] Self [id number] Aetna Medicare Commercial [id number] Self MEBP [id number] AETNA MEDICARE [id number] SP MEBPM J7Y MEDICARE COMPLETE [id number] SP [id number] MEDICARE COMPLETE [id number] SP [id number] [facility] MEDICARE COMPLETE G [id number] Self [id number] MEDICARE [facility]TE[facility] O [id number] S [id number] [facility] Medicare Commercial [id number] Self [id number] [facility] Medicare Commercial [id number] Self [id number] MEDICARE [id number] SP [id number] A MEDICARE COMPLETE [id number] SP [id number] [facility] Medicare Commercial Self UNHC COMMUNITY PLAN MCDO [id number] SP [id number] [facility] O [id number] S [id number] MEDICARE BLUE PPO [id number] SP [id number] Medicare Blue Ppo Commercial Self Medicare Blue Ppo Commercial Self BCBS Medicare Commercial Self EXCELLUS BCBS B [id number] S [id number] [facility] Health Maintenance Organization (HMO) Self [employer] Blue Cross Commercial Self MEDICARE BLUE PPO EXCELLUS BC [id number] SP [id number] MEDICARE BLUE PPO 306 [id number] SP [id number] MEDICARE BLUE PPO 306 [id number] SP [id number] Problems, Conditions, and Diagnoses Code Display Name Description Problem Type Effective Dates Data Source(s) 375.15 Dry Eye Syndrome Dry Eye Syndrome Problem 04/04/2019 12 :00:00 AM EST [facility] (Cristhian Del Real MD [facility]) 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 Problem 04/04/2019 12:00:00 AM EST [facility] (Cristhian Del Real MD [facility]) 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 Capsule Left Eye Posterior Capsule Opacification Eccentric Capsule Left Eye Problem 04/04 12:00:00 AM EST [facility] (Cristhian Del Real MD [facility]) I10 Essential (primary) hypertension I10 - Essential (primary) hypertension Diagnosis 10/17/2019 10:24:00 AM EDT [facility] T14.8XXA Other injury of unspecified body region, initial encounter T14.8XXA - Other injury of unspecified body region, initial encounter Diagnosis 03/25/2019 03:21:00 PM EST [facility] Surgeries/Procedures Procedure Description Date Indications Data Source(s) RADIOLOGIC EXAM KNEE COMPLETE 4/MORE VIEWS 01/08/2020 12:00:00 AM EST [facility] ([facility]) MRI SPINAL CANAL LUMBAR W/O CONTRAST MATERIAL 10/03/19 12:00:00 AM EDT [facility] ([facility]) MRI SPINAL CANAL LUMBAR W/O CONTRAST MATERIAL 10/03/19 20 12:00:00 AM EDT [facility] ([facility] TSTG ANS FUNCJ CARDIOVAGAL INNERVAJ PARASYMP 0 12:00:00 AM EDT [facility] ([facility] TSTG ANS FUNCJ CARDIOVAGAL INNERVAJ PARASYMP 0 12:00:00 AM EDT [facility] ([facility] TESTING AUTONOMIC NERVOUS SYSTEM FUNCTION 09/19/2019 1 2:00:00 AM EDT [facility] ([facility] TESTING AUTONOMIC NERVOUS SYSTEM FUNCTION 09/19/2019 1 2:00:00 AM EDT [facility] ([facility] Needle electromyography, each extremity, with related paraspinal areas, when performed, done with nerve conduction, amplitude and latency/velocity study; complete, five or more muscles studied, innervated by three or more nerves or four or more spinal levels (list separately in addition to the code for primary procedure). 07/04/2019 12:00:00 AM EDT [facility] ([facility] Needle electromyography, each extremity, with related paraspinal areas, when performed, done with nerve conduction, amplitude and latency/velocity study; complete, five or more muscles studied, innervated by three or more nerves or four or more spinal levels (list separately in addition to the code for primary procedure). 07/04/2019 12:00:00 AM EDT [facility] ([facility] [address] Nerve conduction studies 13 or more studies NEW 201207/04/2019 12:00:00 AM EDT [facility] ([facility] ELECTROENCEPHALOGRAM W/REC AWAKE&ASLEEP 06/26/2019 12: 00:00 AM EDT [facility] ([facility] ELECTROENCEPHALOGRAM W/REC AWAKE&ASLEEP 06/26/2019 12: 00:00 AM EDT [facility] ([facility] MRI BRAIN BRAIN STEM W/O CONTRAST MATERIAL 06/25/2019 12:00:00 AM EDT [facility] ([facility] MRI BRAIN BRAIN STEM W/O CONTRAST MATERIAL 06/25/2019 12:00:00 AM EDT [facility] ([facility]) Recent change in medical history Dx: Alzheimer's end [address] Mancera Recent change in medical history Dx: Alzheimer's end [address] Mancera 04/04/2019 12:00:00 AM EST [facility] (Cristhian guillen MD [facility]) Reported medical history Ocular Allergi es, [...] AM EST [facility] (Cristhian Del Real MD [facility]) Surgical / procedural history 2 Back Quan rgeries, Toe Surgery, Lumpectomy bilateral 09/30 Surgical / procedural history 2 Back Quan rgeries, Toe Surgery, Lumpectomy bilateral 09/3004/04/2019 12:00:00 AM EST [facility] (Cristhian Del Real MD [facility]) Intermediate Eye Exam Established Patient Intermediate Eye Exam Established Patient 04/04/2019 12:00:00 AM EST [facility] (Jass Del Real MD [facility]) X-ray of right knee (procedure) 03/25/2019 12:00:00 AM EST [facility] X-ray of right foot (procedure) 03/25/2019 12:00:00 AM EST [facility] of right ankle (procedure) 03/25/2019 12:00:00 A M EST [facility] MAXILLOFACIAL WO CONT 03/25/2019 12:00:00 AM EST [facility] BRAIN HEAD WO CONTRAST 03/25/2019 12:00:00 AM EST [facility] RADEX WRIST COMPLETE MINIMUM 3 VIEWS 03/05/2019 12:00: 00 AM EST [facility] ([facility]) Results ID Date Data Source [id number] 11/21/2019 12:00:00 AM EDT [facility]y Imaging Tiffani MART Patient Name: CLARISSA WITT [id number] [facility] Date of : 1935[place] [address] Date of Exam: 11/21/2019PH#: Fax: [phone] EXAM: [...] as described above. Correlate clinically.Accredited by the [employer] in MR.CHE Flores/slmTtrent you for referring CLARISSA WITT to our office. Electronically Signed - SAMY CERVANTES DO 11/21/19 15:09 Name Value Range Interpretation Code Description Data Tami rce(s) Supporting Document(s) ID Date Data Source [id number] 11/16/2019 12:00:00 AM EDT [facility] Tiffani MART Patient Name: CLARISSA WITT [id number] [facility] Date of : 1935[place], [place] [address] Date of Exam: 11/16/2019#: Fax: [phone] EXAM: [...] Other findings as described above.Accredited by the [employer] in MR.CHE Flores/Papi you for referring CLARISSA WITT to our office.Electronically Signed - SAMY CERVANTES DO 11/16/19 17:15 Name Value Range Interpretation Code Description Data Tami rce(s) Supporting Document(s) ID Date Data Source [id number] 10/17/2019 10:28:00 AM EDT [facility] Name Value Range Interpretation Code Description Data Tami rce(s) Supporting Document(s) Thyroxine (T4) free [Mass/volume] in Serum or Plasma 1.10 ng/dL 0.76- 1.78 [facility] ([facility]) Thyrotropin [Units/volume] in Serum or Plasma 1.440 uIU/ML 0.470-4.20 0 [facility] ([facility]) Patients should not be tested for 72 dung rs post fluorescein dye angiography. A false depression of result may occur. ID Date Data Source [id number] 10/17/2019 10:28:00 AM EDT [facility] Name Value Range Interpretation Code Description Data Tami rce(s) Supporting Document(s) Sodium [Moles/volume] in Serum or Plasma 143 meq/L 135-145 [facility] ([facility]) Carbon dioxide, total [Moles/volume] in Serum or Plasma 26 meq/L 22 -33 [facility] ([facility]) Potassium [Moles/volume] in Serum or Plasma 3.8 meq/L 3.5-5.3 [facility] ([facility]) Chloride [Moles/volume] in Serum or Plasma 107 meq/L 94-110 [facility] ([facility]) Anion gap in Serum or Plasma 14 5-16 M [facility] ([facility]) Creatine [Mass/volume] in Serum or Plasma 0.8 mg/dL 0.6-1.4 [facility] ([facility] ) Urea nitrogen [Mass/volume] in Serum or Plasma 18 mg/dL 7-25 [facility] ([facility] Glucose [Mass/volume] in Serum or Plasma 70 mg/dL 70-100 [facility] ([facility] ) Glomerular filtration rate/1.73 sq M.pre dicted [Volume Rate/Area] in Serum or Plasma by Creatinine-based formula (MDRD) 68.8 mL/min [facility] ([facility] Stage G2 - Mildly [...] Serum or Plasma 22 8 -36 [facility] ([facility] ) Aspartate aminotransferase [Enzymatic activity/volume] in Serum or Plasma 23 U/L 5-40 [facility] ([facility] Bilirubin.total [Mass/volume] in Serum or Plasma 0.6 mg/dL 0.1-1.3 [facility] ([facility] ) Calcium [Mass/volume] in Serum or Plasma 9.4 mg/dL 8.7-10.5 [facility] ([facility] Protein [Mass/volume] in Serum or Plasma 5.7 g/dL 5.9-8.3 [facility] ([facility] ) Alanine aminotransferase [Enzymatic activity/volume] in Seru m or Plasma 14 U/L 5-48 [facility] ([facility]) Albumin [Mass/volume] in Serum or Plasma 4.2 g/dL 3.0-5.1 [facility] ([facility] ) Alkaline phosphatase [Enzymatic activity/volume] in Serum or Plasma 59 U/L 40-140 [facility] ([facility]) Globulin [Mass/volume] in Serum by calculation 1.5 g/dL 1.5-3.5 [facility] ([facility] Albumin/Globulin [Mass Ratio] in Serum or Plasma 2.8 g/dL 1.0-3.0 [facility] ([facility] ) ID Date Data Source [id number] 10/17/2019 10:28:00 AM EDT [facility] ([facility]ip[facility] [...] result may occur. ID Date Data Source [id number] 10/17/2019 10:28:00 AM EDT [facility] ([facility] [...] [facility] ID Date Data Source [id number] 10/17/2019 10:28:00 AM EDT [facility] ([facility] [...] [facility] ID Date Data Source [id number] 10/17/2019 03:01:00 PM EDT [facility] Name Value Range Interpretation Code Description Data Tami rce(s) Supporting Document(s) SODIUM 143 MEQ/L 135-145 [facility] POTASSIUM 3.8 MEQ/L 3.5-5.3 N [facility] CHLORIDE 107 MEQ/L 94-110 [facility] CARBON DIOXIDE 26 MEQ/L 22-33 N [facility] ANION GAP 14 5-16 N [facility] BLOOD UREA NITRO 18 MG/DL 7-25 N [facility] CREATININE 0.8 MG/DL 0.6-1.4 N [facility] GFR 68.8 ML/MIN [facility] Stage G2 - Mildly decreased kidney func tion The GFR is an estimate of the Glomerular Filtration Rate. It is an aid to assess a patient's renal function. It is not a conclusive diagnosis of kidney disease. GFR normal is >=90 The MDRD GFR calculation is considered valid between the ages of 18 and 75 years only. BUN/CREAT RATIO 22 8-36 N [facility] GLUCOSE 70 MG/DL 70-100 N [facility] CA 9.4 MG/DL 8.7-10.5 N [facility] BILIRUBIN,TOTAL 0.6 MG/DL 0.1-1.3 N [facility] AST 23 U/L 5-40 N [facility] ALT 14 U/L 5-48 N [facility] ALKALINE PHOSPHATASE 59 U/L 40-140 [facility] TOTAL PROTEIN 5.7 G/DL 5.9-8.3 L [facility] ALBUMIN 4.2 G/DL 3.0-5.1 N [facility] GLOBULIN 1.5 G/DL 1.5-3.5 [facility] ALB/GLOB RATIO 2.8 G/DL 1.0-3.0 [facility] ID Date Data Source [id number] 10/17/2019 03:01:00 PM [facility] Name Value Range Interpretation Code Description Data Tami rce(s) Supporting Document(s) TRIGLYCERIDES 57 MG/DL 45-150 [facility] CHOLESTEROL 148 MG/DL 125-200 [facility] LDL CHOLESTEROL 77 MG/DL 50-130 [facility] HDL CHOLESTEROL 60 MG/DL 32-96 [facility] CHOL/HDL RATIO 2.5 0-4.3 [facility] ID Date Data Source [id number] 10/17/2019 03:01:00 PM [facility] Name Value Range Interpretation Code Description Data Tami rce(s) Supporting Document(s) FREE T4 (FREE THYROXINE) 1.10 NG/DL 0.76-1.78 N [facility] ID Date Data Source [id number] 10/17/2019 03:01:00 PM [facility] Name Value Range Interpretation Code Description Data Tami rce(s) Supporting Document(s) TSH 1.440 uIU/ML 0.470-4.200 [facility] Patients should not be tested for 74 ho urs post fluorescein dye angiography. A false depression of result may occur. ID Date Data Source [id number] 03/25/2019 05:11:[address] [address] HEALTH INFORMATION MANAGEMENT ED/ Physician Report : [id number] Signed Patient: Clarissa Witt Acct:[id number] Unit: MR [id number] : 1935 Arrival Date: 03/25/19 Age/Sex: 83 [...] rce(s) Supporting Document(s) ID Date Data Source [id number] 03/25/2019 04:55:00 [place] [address] Patient Name: Clarissa Witt Exam Date: 03/25/19 : 1935 Ordering Doctor: Xin Lechuga NP Attending Doctor: Monserrat Fernandez MD CC: Right knee, three views HISTORY: Trauma, pain COMPARISON: None FINDINGS: No acute fracture or significant joint effusion is seen. The joint space is preserved. IMPRESSION: No acute fracture or significant joint effusion. K6 End of diagnostic report: [id number] Signed: Myesha Munoz MD 03/25/19 1745 Interpreted by: Myesha MunozTranscribed by: Myesha Munoz Name Value Range Interpretation Code Description Data Tami rce(s) Supporting Document(s) ID Date Data Source [id number] 03/25/2019 04:55:00 [place] [address] Patient Name: Clarissa Witt Exam Date: 03/25/19 : 1935 Ordering Doctor: Xin Lechuga NP Attending Doctor: Monserrat Fernandez MD CC: Right ankle, minimum three views HISTORY: Fall, pain COMPARISON: None FINDINGS: The ankle mortise is symmetric. No evidence of acute fracture or dislocation is seen. IMPRESSION: No acute fracture or dislocation is seen. K6 End of diagnostic report: [id number] Signed: Myesha Munoz MD 03/25/19 1737 Interpreted by: Myesha MunozTranscribed by: Myesha Munoz Name Value Range Interpretation Code Description Data Tami rce(s) Supporting Document(s) ID Date Data Source [id number] 03/25/2019 04:55:00 [place] [address] Patient Name: Clarissa Witt Exam Date: 03/25/19 : 1935 Ordering Doctor: Xin Lechuga NP Attending Doctor: Monserrat Fernandez MD CC: Right foot, minimum three views HISTORY: Trauma, pain, fall COMPARISON: 07/27/2013 FINDINGS: No acute fracture or dislocation is identified. Plantar calcaneal enthesopathy is noted. No significant soft tissue swelling is seen. IMPRESSION: No acute abnormality is seen. K6 End of diagnostic report: [id number] Signed: Myesha Munoz MD 03/25/19 1739 Interpreted by: Myesha MunozTranscribed by: Myesha Munoz Name Value Range Interpretation Code Description Data Tami rce(s) Supporting Document(s) ID Date Data Source [id number] 03/25/2019 04:45:00 [place] [address] Patient Name: Clarissa Witt Exam Date: 03/25/19 [...] ischemic disease. K6 End of diagnostic report: [id number] Signed: Myesha Munoz MD 03/25/19 1713 Interpreted by: Myesha MunozTranscribed by: Myesha Munoz Name Value Range Interpretation Code Description Data Tami rce(s) Supporting Document(s) ID Date Data Source [id number] 03/25/2019 04:30:00 [place] [address] Patient Name: Clarissa Witt Exam Date: 03/25/19 [...] clinical setting. K6 End of diagnostic report: [id number] Signed: Myesha Munoz MD 03/25/19 1702 Interpreted by: Myesha MunozTranscribed by: Myesha Munoz Name Value Range Interpretation Code Description Data Tami rce(s) Supporting Document(s) Procedure Social History Code Duration Value Status Description Data Source(s ) Smoking 12/27/2019 12:00:00 AM EST Patient is a former smoker completed Patient is a former smoker [facility] ([facility] Smoking 04/04/2019 02:21:23 PM EST Ex-smoker (finding) [facility] Ex-smoker (finding) [facility] (Cristhian Del Real [facility]) 03/25/2019 05:18:00 PM EST Never Smoker completed Never [facility] Smoking 03/25/2019 05:18:00 PM EST Never smoked tobacco (findi ng) completed Never smoked tobacco (finding) [facility] Vital Signs ID Date Data Source UNK Name Value Range Interpretation Code Description Data Source(s) [place] body weight 130 [lb_av] 130 [lb_av] [facility] ([facility], ) Body mass index (BMI) [Ratio] 25.8 kg/m2 25.8 k g/m2 [facility] Body weight 160.00 [lb_av] 160.00 [lb_av] [facility] ([facility], ) Body height 66 [in_i] 66 [in_i] [facility] ([facility], ) 5'6" Respiratory rate 12 /min 12 /min [facility] ( [facility]) Body mass index (BMI) [Ratio] 25.2 kg/m2 25.2 k g/m2 [facility] ([facility] [place] body weight 125 [lb_av] 125 [lb_av] MED[facility] [...] mm[Hg] M [facility] ([facility] [place] body weight 130 [lb_av] 130 [lb_av] [facility] ([facility], ) Body mass index (BMI) [Ratio] 23.7 kg/m2 23.7 k g/m2 [facility] ([facility], ) Body weight 147.00 [lb_av] 147.00 [lb_av] [facility] ([facility], ) Body height 66 [in_i] 66 [in_i] [facility] ([facility], ) 5'6" Respiratory rate 12 /min 12 /min [facility] ( [facility], ) Body mass index (BMI) [Ratio] 22.9 kg/m2 22.9 k g/m2 [facility] ([facility] ) Body weight 142.00 [lb_av] 142.00 [lb_av] [facility] ([facility] ) Body height 66 [in_i] 66 [in_i] [facility] ([facility]) 5'6" Body temperature 97.3 [degF] 97.3 [degF] [facility] ([facility]) Body height 65 [in_i] 65 [in_i] [facility] ([facility]) [place] body weight 125 [lb_av] 125 [lb_av] MED[facility] [...] kg/m2 23.7 k g/m2 [facility] ([facility], ) Body weight 147.00 [lb_av] 147.00 [lb_av] [facility] ([facility], ) Body height 66 [in_i] 66 [in_i] [facility] ([facility], ) 5'6" Respiratory rate 12 /min 12 /min [facility] ( [facility], ) Body mass index (BMI) [Ratio] 24.4 kg/m2 24.4 k g/m2 [facility] ([facility] [place] body weight 125 [lb_av] 125 [lb_av] MED[facility] [...] Systolic blood pressure 138 mm[Hg] 138 mm[Hg] [facility] Body mass index (BMI) [Ratio] 23.7 kg/m2 23.7 k g/m2 [facility] ([facility], ) Body weight 147.00 [lb_av] 147.00 [lb_av] [facility] ([facility], ) Body height 66 [in_i] 66 [in_i] [facility] ([facility], ) 5'6" Respiratory rate 12 /min 12 /min [facility] ( [facility], ) Diastolic blood pressure 65 mm[Hg] 65 mm[Hg] [facility] Systolic blood pressure 152 mm[Hg] 152 mm[Hg] O [facility] Oxygen saturation in Arterial blood by Pulse oximetry 97 % 97 % [facility] Respiratory rate 18 /min 18 /min [facility] Heart rate 84 /min 84 /min [facility] Body temperature 97.5 [degF] 97.5 [degF] [facility] Body mass index (BMI) [Ratio] 25.5 kg/m2 25.5 k g/m2 [facility] ([facility]) Body weight 158.00 [lb_av] 158.00 [lb_av] [facility] ([facility]) Body height 66 [in_i] 66 [in_i] [facility] ([facility]) 5'6" Respiratory rate 12 /min 12 /min [facility] ( [facility]) Heart rate 80 /min 80 /min [facility] ([facility]) Diastolic blood pressure 62 mm[Hg] 62 mm[Hg] [facility] ([facility]) Systolic blood pressure 110 mm[Hg] 110 mm[Hg] M [facility] ([facility]) Body mass index (BMI) [Ratio] 24.5 kg/m2 [...] AM EDKeli RAWLS (Cristhian Del Real MD [facility]) Amoxicillin 500 MG / Clavulanate 125 MG Oral Tablet [A ugmentin] 06/23/2015 12:00:00 AM LUIS RAWLS (Cristhian Del Real MD [facility])
[2020-03-03 16:22] LABS: BASO % 0.4 % (0.0-1.0); EOS # 0.1 10^3/uL (0.0-0.5); EOS % 0.9 % (0.0-3.0); HEMATOCRIT 38.9 % (36.0-47.0); HEMOGLOBIN 12.2 g/dl (12.0-15.5); LYMPH # 0.9 10^3/uL (1.5-5.0); LYMPH % 13.6 % (24.0-44.0); MEAN CORPUSCULAR HEMOGLOBIN 29.4 pg (27.0-33.0); MEAN CORPUSCULAR HGB CONC 31.4 g/dl (32.0-36.5); MEAN CORPUSCULAR VOLUME 93.7 fl (80.0-96.0); MONO # 0.7 10^3/uL (0.0-0.8); MONO % 9.7 % (0.0-5.0); NEUTROPHILS % 75.1 % (36.0-66.0); PLATELET COUNT, AUTOMATED 204 10^3/uL (150-450); RED BLOOD COUNT 4.15 10^6/uL (4.00-5.40); WHITE BLOOD COUNT 6.7 10^3/uL (4.0-10.0)
[2020-03-03 16:48] LABS: ALBUMIN 3.7 GM/DL (3.2-5.2); ALT/SGPT 17 U/L (12-78); BILIRUBIN,DIRECT 0.1 MG/DL (0.0-0.2); BILIRUBIN,TOTAL 0.5 MG/DL (0.2-1.0); BLOOD UREA NITROGEN 19 MG/DL (7-18); CALCIUM LEVEL 9.3 MG/DL (8.8-10.2); CARBON DIOXIDE LEVEL 30 MEQ/L (21-32); CHLORIDE LEVEL 108 MEQ/L (98-107); CREATININE FOR GFR 0.88 MG/DL (0.55-1.30); GLOMERULAR FILTRATION RATE > 60.0 (>32); GLUCOSE, FASTING 88 MG/DL (70-100); LIPASE 152 U/L (73-393); POTASSIUM SERUM 4.3 MEQ/L (3.5-5.1); SODIUM LEVEL 141 MEQ/L (136-145); TOTAL PROTEIN 6.6 GM/DL (6.4-8.2)
[2020-03-03] MEDS ORDERED: CVS2.1SU PR (18:48)
[2020-03-03] MEDS ORDERED: COLA100C5 PO (18:48)
[2020-03-03] MEDS ORDERED: MIRA3350 PO (18:48)
[2020-03-03 20:03] VITALS: BP 148/88
== END 2020-03-03 20:04 | disposition home or self-care (01) ==
LOC: M ED 14:48
DX: K59.00 Constipation, unspecified (principal); E78.5 Hyperlipidemia, unspecified; G30.9 Alzheimer's disease, unspecified; M32.9 Systemic lupus erythematosus, unspecified; F41.9 Anxiety disorder, unspecified; I10 Essential (primary) hypertension; Z79.1 Long term (current) use of non-steroidal anti-inflammatories (NSAID); Z79.899 Other long term (current) drug therapy; Z88.1 Allergy status to other antibiotic agents; Z88.8 Allergy status to other drugs, medicaments and biological substances; Z91.018 Allergy to other foods; Z91.040 Latex allergy status; Z96.0 Presence of urogenital implants

== ENCOUNTER → 2020-03-05 | Outpatient (REF) | payer MEDICARE ==
[~2020-03-05] MED LIST changes: +COLA100C5 PO; +CVS2.1SU PR
== END ==
LOC: M LAB REF 17:09
PROVIDERS: ATTEND Nurse Practitioner Family
DX: R10.9 Unspecified abdominal pain (principal)

== ENCOUNTER → 2020-08-20 | Outpatient (CLI) | payer MEDICARE ==
[~2020-08-20] MED LIST changes: +OMEP40CA4 PO; -OMEP40CA97 PO
[2020-08-20 15:07] LABS: ALBUMIN 3.4 GM/DL (3.2-5.2); ALT/SGPT 22 U/L (12-78); BILIRUBIN,TOTAL 0.3 MG/DL (0.2-1.0); BLOOD UREA NITROGEN 19 MG/DL (7-18); CALCIUM LEVEL 9.9 MG/DL (8.8-10.2); CARBON DIOXIDE LEVEL 30 MEQ/L (21-32); CHLORIDE LEVEL 109 MEQ/L (98-107); CHOLESTEROL LEVEL 235 MG/DL (<200); CREATININE FOR GFR 0.87 MG/DL (0.55-1.30); GLOMERULAR FILTRATION RATE > 60.0 (>32); GLUCOSE, FASTING 98 MG/DL (70-100); HDL CHOLESTEROL 66 MG/DL (>40); LDL CHOLESTEROL 130 MG/DL (<100); NON-HDL-C 169 MG/DL; POTASSIUM SERUM 4.4 MEQ/L (3.5-5.1); SODIUM LEVEL 145 MEQ/L (136-145); TOTAL PROTEIN 6.5 GM/DL (6.4-8.2); TRIGLYCERIDES LEVEL 194 MG/DL (<150)
== END ==
LOC: M LAB 13:58
PROVIDERS: ATTEND Nurse Practitioner Family
DX: I10 Essential (primary) hypertension (principal)

== ENCOUNTER 2020-09-30 15:56 | Emergency (ER) | payer MEDICARE ==
[~2020-09-30] VITALS: Ht 167.6 cm; Wt 72.7 kg
[2020-09-30] MEDS ORDERED: SERT50TA29 (16:13)
[2020-09-30] MEDS ORDERED: MORPHINE 4 MG/ML 1ML VIAL/SYRINGE (J2270) IV ONE ×2 (16:20→18:00)
[2020-09-30] MEDS ORDERED: ONDANSETRON 4MG/2ML VIAL IV ONE (16:20)
[2020-09-30 17:00] LABS: BASO % 0.3 % (0.0-1.0); EOS # 0.1 10^3/uL (0.0-0.5); EOS % 0.9 % (0.0-3.0); HEMATOCRIT 37.2 % (36.0-47.0); HEMOGLOBIN 12.2 g/dl (12.0-15.5); LYMPH % 13.4 % (24.0-44.0); MEAN CORPUSCULAR HEMOGLOBIN 29.4 pg (27.0-33.0); MEAN CORPUSCULAR HGB CONC 32.8 g/dl (32.0-36.5); MEAN CORPUSCULAR VOLUME 89.6 fl (80.0-96.0); MONO # 0.6 10^3/uL (0.0-0.8); NEUTROPHILS # 5.9 10^3/uL (1.5-8.5); PLATELET COUNT, AUTOMATED 221 10^3/uL (150-450); RED BLOOD COUNT 4.15 10^6/uL (4.00-5.40); WHITE BLOOD COUNT 7.6 10^3/uL (4.0-10.0)
[2020-09-30 17:06] LABS: INR 0.92; PARTIAL THROMBOPLASTIN TIME 24.8 SECONDS (25.9-37.0); PROTHROMBIN TIME 12.7 SECONDS (12.7-14.5)
[2020-09-30 17:14] LABS: ALBUMIN 3.3 GM/DL (3.2-5.2); ALT/SGPT 22 U/L (12-78); BILIRUBIN,DIRECT < 0.1 MG/DL (0.0-0.2); BILIRUBIN,TOTAL 0.3 MG/DL (0.2-1.0); BLOOD UREA NITROGEN 26 MG/DL (7-18); CALCIUM LEVEL 8.8 MG/DL (8.8-10.2); CARBON DIOXIDE LEVEL 25 MEQ/L (21-32); CHLORIDE LEVEL 110 MEQ/L (98-107); CREATININE FOR GFR 0.95 MG/DL (0.55-1.30); GLUCOSE, FASTING 80 MG/DL (70-100); POTASSIUM SERUM 3.6 MEQ/L (3.5-5.1); SODIUM LEVEL 142 MEQ/L (136-145); TOTAL PROTEIN 6.2 GM/DL (6.4-8.2)
--- NOTE | 2020-09-30 17:36 | REP ---
INDICATION: fall; trauma. COMPARISON: None. TECHNIQUE: Two views FINDINGS: There is no acute fracture or destructive osseous lesion. Degenerative changes are seen involving the knee IMPRESSION: No acute abnormality <Electronically signed by Stan Sims > 09/30/20 [id number]
--- NOTE | 2020-09-30 17:38 | REP ---
INDICATION: fall; trauma COMPARISON: None TECHNIQUE: Four views FINDINGS: There is no evidence of an acute fracture or destructive osseous lesion. Since a sunrise view was not obtained adequate assessment of the patella cannot be done. A patellar fracture cannot be ruled out. Degenerative changes are present. IMPRESSION: No acute abnormality seen on the images provided, however, limited evaluation of the patella as described above. <Electronically signed by Stan Sims > 09/30/20 [id number]
--- NOTE | 2020-09-30 17:40 | REP ---
INDICATION: fall; trauma. COMPARISON: 10/24/2019 TECHNIQUE: Two views FINDINGS: No acute fracture or destructive osseous lesion. IMPRESSION: Stable chronic changes when compared to 10/24/2019. No acute abnormality. <Electronically signed by Stan Sims > 09/30/20 [id number]
--- NOTE | 2020-09-30 17:41 | REP ---
INDICATION: fall; trauma. COMPARISON: None TECHNIQUE: AP pelvis two views left hip FINDINGS: There is mild to moderate hip joint space narrowing which is rather symmetric in appearance. There is no acute fracture, dislocation, or subluxation. There is mild left hip buttressing. This is seen best on the left hip 2 view exam. Mild degenerative changes are seen involving the sacroiliac joints. Bilateral transpedicular screws are seen at L4 and L5. IMPRESSION: Chronic changes as described above. <Electronically signed by Stan Sims > 09/30/20 1422
--- NOTE | 2020-09-30 19:58 | REPVR ---
PROCEDURE INFORMATION: Exam: CT Left Lower Extremity Without Contrast, Hip Exam date and time: 09/30/2020 6:43 PM Age: 84 years old Clinical indication: Pain; Hip; Left; Additional info: Severe lower back pain/pelvic/left hip pain; Trauma TECHNIQUE: Imaging protocol: CT of the Left lower extremity without contrast was performed. Exam focused on the hip. Radiation optimization: All CT scans at this facility use at least one of these dose optimization techniques: automated exposure control; mA and/or kV adjustment per patient size (includes targeted exams where dose is matched to clinical indication); or iterative reconstruction. 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 No fracture or osteonecrosis. No dislocation. Soft tissues: Normal. IMPRESSION: No fracture. Electronically signed by: Priyank Mccollum On 09/30/2020 19:57:39 PM
--- NOTE | 2020-09-30 20:01 | REPVR ---
PROCEDURE INFORMATION: Exam: CT Lumbar Spine Without Contrast Exam date and time: 09/30/2020 6:43 PM Age: 84 years old Clinical indication: Low back pain; Additional info: Severe lower back pain/pelvic/left hip pain; Trauma TECHNIQUE: Imaging protocol: Computed tomography images of the lumbar spine without contrast. Radiation optimization: All CT scans at this facility use at least one of these dose optimization techniques: automated exposure control; mA and/or kV adjustment per patient size (includes targeted exams where dose is matched to clinical indication); or iterative reconstruction. COMPARISON: CT ABD PELVIS W/O CONTRAST 02/25/2016 9:04 AM FINDINGS: Vertebrae: Old anterior wedge fracture deformity of L1, unchanged. Mild retrolisthesis of L1, unchanged. Anterior and posterior spinal fusion at L4-L5 with interbody bone graft and bilateral pedicle screw and branden instrumentation, unchanged. No instrumentation failure identified. No acute fracture. Discs/Spinal canal/Neural foramina: Degenerative disc disease and facet arthrosis throughout the lumbar spine. Soft tissues: Unremarkable. IMPRESSION: 1. Degenerative spondylosis of the lumbar spine with old anterior wedge fracture deformity of L1 and spinal fusion at L4-L5, unchanged. 2. No acute fracture. Electronically signed by: Priyank Mccollum On 09/30/2020 20:01:15 PM
--- NOTE | 2020-09-30 20:04 | REPVR ---
PROCEDURE INFORMATION: Exam: CT Pelvis Without Contrast; Skeletal Exam date and time: 09/30/2020 6:43 PM Age: 84 years old Clinical indication: Hip pain; Left hip; Additional info: Severe lower back pain/pelvic/left hip pain; Trauma TECHNIQUE: Imaging protocol: Computed tomography images of the pelvis without contrast. Exam focused on the skeletal structures. Radiation optimization: All CT scans at this facility use at least one of these dose optimization techniques: automated exposure control; mA and/or kV adjustment per patient size (includes targeted exams where dose is matched to clinical indication); or iterative reconstruction. COMPARISON: CT ABD PELVIS W/O CONTRAST 02/25/2016 9:04 AM FINDINGS: Bones/joints: Degenerative disc disease and facet arthrosis of the lower lumbar spine. Anterior and posterior spinal fusion at L4-L5. Mild osteoarthritis of the sacroiliac joints. Mild osteoarthritis of the hip joints. No acute fracture. Soft tissues: Unremarkable. IMPRESSION: No acute fracture. Electronically signed by: Priyank Mccollum On 09/30/2020 20:04:23 PM
[2020-09-30] MEDS ORDERED: PERC5TAB12 PO (20:54)
[2020-09-30] MEDS ORDERED: OXYCODONE/APAP 5MG/325MG(BULK FOR ED) 1 TABLET PO ONE (20:55)
[2020-09-30 21:15] VITALS: BP 135/71
== END 2020-09-30 21:28 | disposition home or self-care (01) ==
LOC: EDBD 15:56 → M ED 15:56
DX: S83.92XA Sprain of unspecified site of left knee, initial encounter (principal); S39.012A Strain of muscle, fascia and tendon of lower back, initial encounter; W17.89XA Other fall from one level to another, initial encounter; Y92.018 Other place in single-family (private) house as the place of occurrence of the external cause; I10 Essential (primary) hypertension; F33.9 Major depressive disorder, recurrent, unspecified; G30.9 Alzheimer's disease, unspecified; M32.9 Systemic lupus erythematosus, unspecified; Z87.442 Personal history of urinary calculi; Z79.899 Other long term (current) drug therapy; Z88.1 Allergy status to other antibiotic agents; Z88.5 Allergy status to narcotic agent; Z88.8 Allergy status to other drugs, medicaments and biological substances; Z91.018 Allergy to other foods; Z91.040 Latex allergy status; Z91.048 Other nonmedicinal substance allergy status
CPT/HCPCS: 72131; 72192; 73502; 73552; 73564; 73590; 73700; 80048; 80076; 85025; 85610; 85730; 96374; 96375; 96376; 99284; J2270; J2405

== ENCOUNTER → 2020-12-23 | Outpatient (CLI) | payer MEDICARE ==
[~2020-12-23] MED LIST changes: -KLOR10TA76 PO; +PERC5TAB12 PO; +POTA-136 PO; +SERT50TA29
--- NOTE | 2020-12-23 14:41 | REPMRS ---
Patient History Patient has had two benign right breast biopsies. Patient has also had two left breast biopsies. Family history of breast cancer at age 75 in mother. Tomosynthesis is performed. [place] breast density [facility] b[facility]%. Covid vaccines 02/2020 left arm. 03/2020 left arm. Patient states no breast complaints today. Patient has signed MRS History Sheet. Digital Woman Screen Mammo: December 23, 2020 - Exam #: [id number] Bilateral CC and MLO view(s) were taken. Technologist: RT Margot Prior study comparison: September 21, 2016, bilateral digital mammo screening bilat, performed at [facility] [employer]. October 08, 2015, digital mammo diagnostic bilateral, performed at [facility]. FINDINGS: The breast tissue is heterogeneously dense. This may lower the sensitivity of mammography. There has been no change in the appearance of the mammogram from the prior studies. There is a moderate amount of residual fibroglandular tissue which is fairly symmetric. There is no interval development of dominant mass, areas of architectural distortion, or clustered microcalcification typical of malignancy. Assessment: BI-RADS/ACR category 1 mammogram. Negative Mammogram. Recommendation Routine screening mammogram in 1 year (for women over age 40). This mammogram was interpreted with the aid of an FDA-approved computer-aided dectection system. Electronically Signed By: Donald Tian MD 12/23/20 [id number]
--- NOTE | 2020-12-23 17:03 | DEXAMM ---
INDICATION: DISORDER OF BONE. COMPARISON: 11/10/2017, 01/17/2003. TECHNIQUE: Bone density was measured using dual-energy x-ray absorptiometry (DEXA). FINDINGS: AP SPINE L1-L3 BMD 1.207 g/cm2 Young Adult T-Score 0.2 Age Matched Z-Score 2.1. LT FEMUR, TOTAL BMD 0.721 g/cm2 Young Adult T-Score -2.3 Age Matched Z-Score -0.1. LT NECK BMD 0.667 g/cm2 Young Adult T-Score -2.7 Age Matched Z-Score -0.4. RT FEMUR, TOTAL BMD 0.798 g/cm2 Young Adult T-Score -1.7 Age Matched Z-Score 0.5. RT NECK BMD 0.778 g/cm2 Young Adult T-Score -1.9 Age Matched Z-Score 0.4. IMPRESSION: There is low bone density of the spine. There is osteoporosis of the left hip. There is low bone density of the right hip. The density of the spine has increased 10.4% since the initial exam on 01/17/2003. The density of the spine decreased 1.1% since most recent exam on 11/10/2017. The density of the left hip has decreased 28.2% since initial exam on 01/17/2003. The density of the left hip has decreased 15.5% since most recent exam on 11/10/2017. The density of the right hip has decreased 20.5% since the initial exam on 01/17/2003. The density of the right hip has decreased 7.9% since the most recent exam on 11/10/2017. FOLLOW-UP: Recommendation for the next bone density exam: 2 years. <Electronically signed by Donald Tian > 12/23/20 [id number]
== END ==
LOC: M WHC 12:53
PROVIDERS: ATTEND Nurse Practitioner Family
DX: Z12.31 Encounter for screening mammogram for malignant neoplasm of breast (principal); M89.9 Disorder of bone, unspecified; M81.0 Age-related osteoporosis without current pathological fracture; M85.89 Other specified disorders of bone density and structure, multiple sites

== ENCOUNTER 2021-04-03 06:43 | Emergency (ER) | payer MEDICARE ==
[~2021-04-03] VITALS: Ht 165.1 cm; Wt 68.2 kg
[~2021-04-03 06:43] MED LIST changes: +LOSA25TA13 PO; -LOSA25TA14 PO
[2021-04-03] MEDS ORDERED: ISOVUE-370 76% 100ML VIAL As Ordered ONE (07:15)
[2021-04-03 07:55] LABS: BASO % 0.3 % (0.0-1.0); EOS # 0.1 10^3/uL (0.0-0.5); EOS % 1.1 % (0.0-3.0); HEMATOCRIT 37.6 % (36.0-47.0); HEMOGLOBIN 12.3 g/dl (12.0-15.5); LYMPH # 0.9 10^3/uL (1.5-5.0); LYMPH % 13.1 % (24.0-44.0); MEAN CORPUSCULAR HEMOGLOBIN 28.5 pg (27.0-33.0); MEAN CORPUSCULAR HGB CONC 32.7 g/dl (32.0-36.5); MEAN CORPUSCULAR VOLUME 87.2 fl (80.0-96.0); MONO # 0.6 10^3/uL (0.0-0.8); MONO % 8.7 % (2.0-8.0); NEUTROPHILS % 76.5 % (36.0-66.0); PLATELET COUNT, AUTOMATED 186 10^3/uL (150-450); RED BLOOD COUNT 4.31 10^6/uL (4.00-5.40); WHITE BLOOD COUNT 6.6 10^3/uL (4.0-10.0)
[2021-04-03 08:16] LABS: ALBUMIN 3.4 GM/DL (3.2-5.2); ALT/SGPT 17 U/L (12-78); AMYLASE 61 U/L (25-115); BILIRUBIN,DIRECT 0.1 MG/DL (0.0-0.2); BILIRUBIN,TOTAL 0.5 MG/DL (0.2-1.0); BLOOD UREA NITROGEN 15 MG/DL (7-18); CALCIUM LEVEL 9.1 MG/DL (8.8-10.2); CARBON DIOXIDE LEVEL 23 MEQ/L (21-32); CHLORIDE LEVEL 112 MEQ/L (98-107); CK-MB VALUE MASS 2.4 NG/ML (<3.6); GLOMERULAR FILTRATION RATE > 60.0 (>32); GLUCOSE, FASTING 88 MG/DL (70-100); LIPASE 270 U/L (73-393); MB/CK RELATIVE INDEX 1.64 (< OR =4); POTASSIUM SERUM 4.1 MEQ/L (3.5-5.1); SODIUM LEVEL 144 MEQ/L (136-145); TOTAL PROTEIN 6.5 GM/DL (6.4-8.2)
[2021-04-03 12:01] VITALS: BP 148/70
== END 2021-04-03 12:02 | disposition home or self-care (01) ==
LOC: M ED 06:43 → EDBD 06:43 → M ED 12:02
DX: S09.90XA Unspecified injury of head, initial encounter (principal); S70.01XA Contusion of right hip, initial encounter; S70.02XA Contusion of left hip, initial encounter; S70.11XA Contusion of right thigh, initial encounter; S70.12XA Contusion of left thigh, initial encounter; W18.39XA Other fall on same level, initial encounter; Y92.018 Other place in single-family (private) house as the place of occurrence of the external cause; E78.00 Pure hypercholesterolemia, unspecified; F33.9 Major depressive disorder, recurrent, unspecified; F41.9 Anxiety disorder, unspecified; K21.9 Gastro-esophageal reflux disease without esophagitis; G30.9 Alzheimer's disease, unspecified; Z91.018 Allergy to other foods; Z91.040 Latex allergy status; Z91.048 Other nonmedicinal substance allergy status; Z79.899 Other long term (current) drug therapy; Z88.8 Allergy status to other drugs, medicaments and biological substances; Z88.5 Allergy status to narcotic agent; Z88.1 Allergy status to other antibiotic agents
CPT/HCPCS: 36415; 70450; 71045; 72125; 72170; 73110; 73130; 73502; 73552; 74177; 80048; 80076; 82150; 82550; 82553; 83690; 84484; 85025; 93005; 93041; 94760; 99285; Q9967